=== PATIENT | female | born 1980 | race Caucasian/White ===

== ENCOUNTER 2019-05-29 18:38 | Inpatient (IN) | payer MEDICARE, BC ==
[~2019-05-29] VITALS: Ht 160 cm; Wt 52.2 kg
--- NOTE | 2019-05-29 19:00 | NUR ---
ED Nurse Note: Pt has abdominal pain and not been able to insert catheter to BCIR and bleeding x 2 days. Pt is AO x 4times, VSS, on room air no distress, on NPO for 2 days. MONE seen Pt at bedside.
--- NOTE | 2019-05-29 19:30 | NUR ---
ED Nurse Note: Urine and blood sample sent to lab.
[2019-05-29] MEDS ORDERED: HYDROmorphone 1mg/NS 50ml IVPB 50 ML IVPB ONE (19:45)
[2019-05-29 19:51] LABS: BASOPHILS % (AUTO) 1.7 % (0.0-2.0); EOSINOPHILS % (AUTO) 1.7 % (0.0-3.0); HEMATOCRIT 35.4 % (37.0-47.0); LYMPHOCYTES % (AUTO) 33.4 % (20.0-45.0); MEAN CORPUSCULAR VOLUME 71 FL (80-99); MONOCYTES % (AUTO) 7.2 % (1.0-10.0); PLATELET COUNT 394 K/UL (150-450); RED BLOOD COUNT 5.01 M/UL (4.20-5.40); RED CELL DISTRIBUTION WIDTH 13.1 % (11.6-14.8)
[2019-05-29 19:52] LABS: APPEARANCE,URINE CLEAR; BILIRUBIN, URINE NEGATIVE (NEGATIVE); COLOR,URINE PALE YELLOW; GLUCOSE, URINE (UA) NEGATIVE (NEGATIVE); KETONES,URINE NEGATIVE (NEGATIVE); LEUKOCYTE ESTERASE ,URINE 1+ (NEGATIVE); NITRITE,URINE NEGATIVE (NEGATIVE); PH,URINE 5 (4.5-8.0); PROTEIN,URINE NEGATIVE (NEGATIVE); UROBILINOGEN,URINE NORMAL MG/DL (0.0-1.0)
[2019-05-29 19:54] VITALS: BP 141/61
[2019-05-29 19:56] LABS: ANION GAP 11 mmol/L (5-15); BLOOD UREA NITROGEN 16 mg/dL (7-18); CALCIUM 10.2 MG/DL (8.5-10.1); CARBON DIOXIDE 26 MMOL/L (21-32); CHLORIDE 101 MMOL/L (98-107); CREATININE 0.9 MG/DL (0.55-1.30); POTASSIUM 3.2 MMOL/L (3.5-5.1); SODIUM 138 MMOL/L (136-145)
[2019-05-29 20:01] LABS: ALANINE AMINOTRANSFERASE 24 U/L (12-78); ALBUMIN 4.1 G/DL (3.4-5.0); ALBUMIN/GLOBULIN RATIO 0.9 (1.0-2.7); ALKALINE PHOSPHATASE 87 U/L (46-116); ASPARTATE AMINO TRANSFERASE 25 U/L (15-37); BILIRUBIN,TOTAL 0.3 MG/DL (0.2-1.0)
--- NOTE | 2019-05-29 20:02 | Emergency Room Report ---
History of Present Illness General Chief Complaint: Abdominal Pain Source: Patient Present Illness HPI HPI: This is a 38-year-old female with a history of colon cancer status post resection, ovarian and cervical cancer status post chemo/radiation as well as total hysterectomy, ulcerative colitis with Guzman continent ileostomy August 2017 performed in [place] with multiple revisions presents for evaluation of worsening abdominal pain and ileostomy problem. The patient flew to [place] today to meet with Dr. Miller who is a expert on Guzman containing ileostomy. She has been having weeks of worsening abdominal pain and difficulty passing the ileostomy catheter into her stoma in her right pelvis. Concern for obstruction as she is no longer able to evacuate the pouch. She denies any fevers but notes worsening abdominal pain and some distention. She denies vomiting vomiting, rash, shortness of breath, wheezing, headaches. She does note intermittent chest pain and easily fatigue though this has been going on for several months. She states that she has recently been diagnosed with hyperkalemia and while an inpatient during a prolonged hospitalization had some sort of cardiac arrhythmia for which she required defibrillation. She does not currently have a search engine optimization manager due to a change in his insurance. Currently, she is on the complaining of diffuse abdominal pain. PMH: Ovarian cancer, colon cancer, cervical cancer, hypertension, hyperkalemia, ulcerative colitis, anxiety PSH: Proctocolectomy, Guzman continent ileostomy, total hysterectomy Allergies: IV contrast dye causes flushing, lightheadedness, syncope. Morphine causes hives Social Hx: Denies smoking, alcohol use or illicit drug use Allergies: Coded Allergies: MORPHINE (Verified Allergy, Unknown, Shortness of Breath, 05/29/19) Uncoded Allergies: CONTRAST (Allergy, Unknown, 05/29/19) Patient History Last Menstrual Period: Hysterectomy 2016 Now: No Nursing Documentation-PM Past Medical History: No History, Except For Hx Cancer: Yes - Ovarian, Cervical Hx Gastrointestinal Problems: Yes - Ulcerative colitis Review of Systems All Other Systems: negative except mentioned in HPI Physical Exam Vital Signs Date Time Temp Pulse Resp B/P (MAP) Pulse Ox O2 Delivery O2 Flow Rate FiO2 05/29/19 18:44 98.4 108 20 140/102 (115) 97 Room Air General: Awake and alert, appears moderately uncomfortable HEENT: NC/AT. EOMI. dry mucous membranes Neck: Supple, trachea midline Chest Wall: No tenderness, no deformity, scarring over the left chest wall, no open wounds Cardiovascular: RRR. S1 and S2 normal. No murmur appreciated Resp: Normal work of breathing. No cough, wheezing or crackles appreciated Abdomen: Abdomen is soft, nondistended. Diffusely tender to palpation without palpable mass. There is a small stoma in the right groin without surrounding erythema, no bleeding, no drainage. Tender to palpation. Skin: Intact. No abrasions, laceration or rash over the exposed skin. Stoma as described above MSK: Normal tone and bulk. Moving all extremities. No obvious deformity. Neuro: Awake and alert. Mentating appropriately. Medical Decision Making ER Course 38-year-old female presenting from [place] at day with a history of ovarian, cervical and colon cancer status post surgical resection of all as well as chemotherapy and radiation, Guzman continent ileostomy procedure for ulcerative colitis with multiple revisions presenting for evaluation of complication of the ileostomy pouch by Dr. Lama. The patient is uncomfortable with a tender abdomen but vital signs are currently reassuring she does not appear outwardly septic or in distress. We will provide IV fluids , pain medication and start a broad work-up. She will require admission. Will discuss with Dr. Lama EKG Diagnostic Results EKG Time: 19:40 Rate: normal Rhythm: NSR ST Segments: no acute changes Other Impression Prolonged QT interval at 499 ms Rhythm Strip Diag. Results Rhythm Strip Time: 19:40 EP Interpretation: yes Rate: 91 Rhythm: NSR Reevaluation Time: 20:20 Last Vital Signs Date Time Temp Pulse Resp B/P (MAP) Pulse Ox O2 Delivery O2 Flow Rate FiO2 05/29/19 18:44 98.4 108 20 140/102 (115) 97 Room Air Status: improved Reevaluation Impression Lab work returned largely unremarkable. No significant white count. EKG and cardiac enzymes within normal limits. The patient required IV fluids and IV pain medication with some improvement of her symptoms. Discussed the patient with Dr. Espinosa, we both feel that she does not require emergent imaging at this time. She will be admitted for further management. Please note that this report is being documented using Fit with Friends technology. This can lead to erroneous entry secondary to incorrect interpretation by the dictating instrument. Disposition: ADMITTED INPATIENT Admit Decision Time: 20:25 Condition: Stable Referrals: NON PHYSICIAN (PCP) Caio Bell MD May 29, 2019 20:02
[2019-05-29 20:04] LABS: INR 0.9 (0.9-1.1)
[2019-05-29] MEDS ORDERED: HYDROmorphone 1mg/ml Carpuject IVP ONE (21:00)
--- NOTE | 2019-05-29 21:22 | NUR ---
NURSE NOTES: Receive a report from ED, DEREJE Montez.
[2019-05-29 21:30] VITALS: BP 138/75
--- NOTE | 2019-05-29 21:30 | NUR ---
ED Nurse Note: Report given to RN Flora. Pt is AO x 4times, VSS, on room air no distress. Belongings and skin condition report to RN.
--- NOTE | 2019-05-29 21:38 | NUR ---
NURSE NOTES: Pt newly admitted from ED via koki d/t pain and discharge from ileostomy on RLQ. Pt is awake and alert. IV 20 G on left AC without infiltration. On therapeutic NPO except ice chips and medication. Will continue to monitor and will contact Dr. Miller to confirm orders. Addendum: 05/30/19 at 0243 by Flora Gamble RN Provide facility orientations. Leave call light within reach. Bed is locked and lowest. Pt brought her suitcase but refuses to check it. Belonging paper signed by pt.
[2019-05-29] MEDS ORDERED: DILAUDID IV (21:50)
[2019-05-29] MEDS ORDERED: XANAX XR2 MG ORAL (21:50)
[2019-05-29] MEDS ORDERED: BENADRYL25 M3 IVP (21:50)
[2019-05-29] MEDS ORDERED: POTASSIUM99 M3 PO (21:50)
[2019-05-29] MEDS ORDERED: QUETIAPINE FUM100 MG ORAL (21:50)
[2019-05-29] MEDS ORDERED: Zolpidem 5mg tab ORAL PRN (23:15)
[2019-05-29] MEDS ORDERED: ALPRAZolam 0.25mg tab ORAL SCH (23:15)
[2019-05-29] MEDS ORDERED: DiphenhydrAMINE 50mg/ml Inj IVP PRN (23:15)
--- NOTE | 2019-05-29 23:30 | NUR ---
NURSE NOTES: Done insertion of 24 Fr. diallo catheter to ileostomy. No bleeding noted and nothing drained. After irrigation with 20ml N/S, drain with brownish drainage. Total N/S 20ml two time, 40 ml drained. Connect with diallo bag for natural drainage. 4x4 gauze, ABD, silk tape with two tegarderm by pt's request to hold the catheter. Will continue to monitor.
[2019-05-30] VITALS: BP 125/88
[2019-05-30] MEDS ORDERED: Rate Change PCA 1 Each MISC PRN
[2019-05-30] MEDS ORDERED: Naloxone 0.4mg/ml Inj IVP PRN
[2019-05-30] MEDS ORDERED: PCA Education Pamphlet MISC ONE
[2019-05-30] MEDS: D5 1/2NS w/KCl 20mEq 1,000 ML IV SCH ×3 (00:17→19:59)
--- NOTE | 2019-05-30 00:30 | NUR ---
NURSE NOTES: Receive admission orders from Dr. Miller including RHINOLOGIST for pain control as bolus: 0.1mg, 6min lock time, and 4mg MAX for 4 hrs but pt insists on 1.6mg every hour as bolus. Notify to Dr. Miller to verify RHINOLOGIST pain medication. Increase to 0.2mg bolus and prn Dilaudid 1mg SC Q 3hrs for breakthrough pain. Order noted and carried out. Explain to pt for current regime. Pt verbalize understanding. Pt describes her pain as sharp, poking and waving from the origin to spread out around the area. Will continue to monitor with RHINOLOGIST usage.
[2019-05-30] MEDS ORDERED: HYDROmorphone 1mg/ml Carpuject SUBQ PRN ×2 (01:00→09:00)
--- NOTE | 2019-05-30 03:30 | NUR ---
NURSE NOTES: Pt is asleep with Spo2 monitor and keep as 97% in RA. Brownish drainage drained via ileostomy with NS 20ml irrigation. IV fluid hydration via left AC 20 G without IV site infiltration. Leave call light within reach. Will continue to monitor.
[2019-05-30 04:00] VITALS: BP 91/68
[2019-05-30 05:29] LABS: BASOPHILS % (AUTO) 1.5 % (0.0-2.0); EOSINOPHILS % (AUTO) 1.9 % (0.0-3.0); HEMATOCRIT 32.4 % (37.0-47.0); HEMOGLOBIN 9.9 G/DL (12.0-16.0); MEAN CORPUSCULAR VOLUME 72 FL (80-99); MONOCYTES % (AUTO) 7.4 % (1.0-10.0); NEUTROPHILS % (AUTO) 59.2 % (45.0-75.0); PLATELET COUNT 311 K/UL (150-450); RED BLOOD COUNT 4.47 M/UL (4.20-5.40); RED CELL DISTRIBUTION WIDTH 13.9 % (11.6-14.8)
[2019-05-30 05:59] LABS: ALANINE AMINOTRANSFERASE 21 U/L (12-78); ALBUMIN 3.3 G/DL (3.4-5.0); ALBUMIN/GLOBULIN RATIO 0.9 (1.0-2.7); ALKALINE PHOSPHATASE 71 U/L (46-116); ANION GAP 7 mmol/L (5-15); ASPARTATE AMINO TRANSFERASE 19 U/L (15-37); BILIRUBIN,TOTAL 0.3 MG/DL (0.2-1.0); BLOOD UREA NITROGEN 12 mg/dL (7-18); CALCIUM 9.5 MG/DL (8.5-10.1); CARBON DIOXIDE 29 MMOL/L (21-32); CHLORIDE 104 MMOL/L (98-107); CREATININE 0.7 MG/DL (0.55-1.30); FERRITIN 2 NG/ML (8-388); POTASSIUM 3.6 MMOL/L (3.5-5.1); SODIUM 140 MMOL/L (136-145)
[2019-05-30 06:11] LABS: % IRON SATURATION 5 % (15-50); IRON 18 ug/dL (50-175); TOTAL IRON BINDING CAPACITY 331 ug/dL (250-450)
--- NOTE | 2019-05-30 06:35 | NUR ---
NURSE NOTES: Receive a call from Dr. Miller. Update pt's conditions overnight and 190ml brownish drainage via ileostomy. Confirm with MD about home medication of Estradiol 0.1mg 1 patch 2x/ 1wk. Order noted and carried out. Will continue to monitor.
[2019-05-30] MEDS: PCA shift volume MISC SCH ×2 (07:00→19:00)
[2019-05-30 07:38] LABS: PHOSPHORUS 3.8 MG/DL (2.5-4.9)
[2019-05-30] MEDS ORDERED: ESTRADIOL1 EAC5 TD (07:40)
--- NOTE | 2019-05-30 07:45 | NUR ---
NURSE NOTES: Done MRSA for nares but refuses for CRE/VRE. Explain for benefits and risks x 3 but refuses tests. Will continue to monitor.
--- NOTE | 2019-05-30 07:45 | NUR ---
HAND-OFF: Report given to DEREJE Barrera. Done rounds. Update to pt's about consult for pain management. will continue to monitor.
[2019-05-30 08:00] VITALS: BP 130/97
--- NOTE | 2019-05-30 08:11 | NUR ---
NURSE NOTES: Received report from DEREJE Hines. Rounding done with outgoing nurse. Pt a/o x 4, in bed. No respiratory distress noted. QUALITY CONTROL ENGINEER is on. Ileostomy bag is patent, greenish color noted. Bed in lowest position, call light within reach. Will continue to monitor.
--- NOTE | 2019-05-30 08:30 | NUR ---
NURSE NOTES: Report received from Bruce REYEZ, rounds made. Patient resting in semi-fowlers position in bed. Alert, oriented x4 calm. IVF (D5 1/2 NS at 100 ml/hr) and SAILOR Dilaudid infusing to LAC as ordered, site asymptomatic. Patient ambulates to bathroom, voids in hat in toilet. No distress on RA. Abdominal dressing CDI, draining brown output to drainage bag. Reinforced NPO status, with ice chips/meds only. Ice chips provided. Call light in reach, bed in lowest position, will continue to monitor.
--- NOTE | 2019-05-30 08:39 | NUR ---
HAND-OFF: Report given to DEREJE Camargo.
[2019-05-30] MEDS ORDERED: HYDROmorphone 4mg tab ORAL PRN (09:00)
[2019-05-30] MEDS ORDERED: PCA HYDROmorphone 1mg/ml 30 ML IV PRN ×2 (09:00)
--- NOTE | 2019-05-30 09:01 | NUR ---
RADIOLOGY DEPT., CHEST X-RAY DONE.-P.DYE
[2019-05-30] MEDS: ALPRAZolam 0.5mg tab ORAL SCH ×4 (09:13→23:48)
[2019-05-30] MEDS: DULoxetine 30mg cap ORAL SCH ×2 (09:13→18:16)
--- NOTE | 2019-05-30 09:40 | General Progress Note ---
Progress Note Progress Note Preliminary evaluation of patient - underwent proctocolectomy with Joy Continent Ileostomy in 2016 with finding of colon cancer. She had Ojy pouch revision in 05/2018, 11/2018, 02/2019 and 03/2019. She states she was hospitalized in [place] for 8 months and has been on a Dilaudid SECRETARY BOARD OF COMMISSIONERS at home for a long time. There is no explanation yet for this prolonged hospital stay or her home SECRETARY BOARD OF COMMISSIONERS. Her labs are okay with anemia; iron 18, albumin 3.3 RN able to insert 24Fr catheter into Joy Pouch with good drainage overnight. Imp. Abdominal pain for 2 years using home SECRETARY BOARD OF COMMISSIONERS in [place] after 8 month hospital stay ?? etiology Plan: STAT CT scan abd+pelvis with oral contrast (allergy to IV contrast) STAT dual lumen PIC line (had an infusion port removed due to infection) Will f/u later today for in-depth assessment Nolan Miller MD May 30, 2019 09:40
[2019-05-30] MEDS ORDERED: Gastrograffin 30ml ORAL PRN (09:45)
[2019-05-30] MEDS ORDERED: ESTRADIOL TOPIC SCH (10:00)
[2019-05-30] MEDS ORDERED: DiphenhydrAMINE 50mg/ml Inj IVP SCH (10:03)
[2019-05-30] MEDS: DiphenhydrAMINE 50mg/ml Inj IVP PRN (10:07)
--- NOTE | 2019-05-30 10:12 | NUR ---
CASE MANAGEMENT:REVIEW 38 YR OLD FEMALE PRESENTED TO OUR ER CC: ABDOMINAL PAIN. BCIR BLEEDING AND UNABLE TO INTUBATE SI: 98.5 108 20 140/102 97% ON RA H/H-11.0/35.4 K-3.2 IS:1L NS BOLUS IV DILAUDID X2 NPO : TO MED/SURG 3 EAST IS: IVF@100/HR NATIONAL ACCOUNT MANAGER DILAUDID
[2019-05-30] MEDS ORDERED: Heparin1,000 units/500ml Premix(Conc:2 units/ml) IV PRN (10:45)
[2019-05-30] MEDS ORDERED: Lidocaine 1% Plain 30 ml INJ PRN (10:45)
--- NOTE | 2019-05-30 11:00 | NUR ---
NURSE NOTES: Patient with allergy to contrast, aware. Order pre-medicate with Benadryl IV and administer oral contrast for STAT CT of Abdomen. Benadryl 25 mg IV was drawn up, but new order came up for Benadryl 50 mg IV. Pharmacy called. Asked if it was okay to draw up the other half of Benadryl IV from vial instead of wasting it, instructed to waste the complete vial (50 mg) and pull a new Benadryl 50 IV to administer. Above discussed and wasted with SARITA Gibbs RN. Administered Benadryl 50 mg IV one time dose, at 1025. PO contrast started at 1035, Martell in radiology notified. No reaction noted, will continue to monitor. Addendum: 05/30/19 at 1129 by Mary Jo Atkins RN MD mendez (Dr. Miller)
[2019-05-30 12:00] VITALS: BP 94/67
--- NOTE | 2019-05-30 12:21 | NUR ---
CT ABD/PELVIS ORAL ONLY COMPLETED.
--- NOTE | 2019-05-30 12:22 | Pre-Procedure Note/Attestation ---
Pre-Procedure Note/Attestation Complete Prior to Procedure Planned Procedure: not applicable Procedure Narrative: PICC Indications for Procedure Pre-Operative Diagnosis: needs steaming cabinet tender IV access Attestation I attest that I discussed the nature of the procedure; its benefits; risks and complications; and alternatives (and the risks and benefits of such alternatives ), prior to the procedure, with the patient (or the patient's legal motor vehicle field representative). I attest that, if there was a reasonable possibility of needing a blood transfusion, the patient (or the patient's legal motor vehicle field representative) was given the [facility] standardized written summary, pursuant to the [place] Marky Blood Safety Act ([place] Health and Safety Code # 1645, as amended). I attest that I re-evaluated the patient just prior to the surgery and that there has been no change in the patient's H&P, except as documented below: Shukri Mclean MD May 30, 2019 12:22
--- NOTE | 2019-05-30 12:23 | Brief Operative Note ---
Immediate Post Operative Note Operative Note Pre-op Diagnosis: needs predatory animal exterminator IV access Procedure: PICC Post-op Diagnosis: same as pre-op Findings: consistent w/pre-op dx studies Surgeon: Dylan MCLEAN Specimen: none Complications: none Condition: stable Fluids: none Implant(s) used?: No Shukri Mclean MD May 30, 2019 12:23
--- NOTE | 2019-05-30 12:30 | NUR ---
NURSE NOTES: Reviewed consent for Contrast and PICC line with patient, verbalized understanding. Consents signed. Patient sent down for PICC line and CT of Abdomen via bed at 1120. Patient returned at 1218 to 303-2, in stable condition, drowsy, awakes to name. DAYAMI double lumen PICC in place, patent with flush, connected back to IVF and SOAP DRIER OPERATOR as ordered. Peripheral LAC heplock discontinued, no active bleeding. Encouraged patient to perform IS, demonstrated correctly. Will continue to monitor.
--- NOTE | 2019-05-30 12:55 | Diagnostic Imaging Report ---
Indication: Cough Technique: One view of the chest Comparison: none Findings: Lungs and pleural spaces are clear. Heart size is normal. Impression: No acute process
--- NOTE | 2019-05-30 13:00 | Consultation ---
DATE OF CONSULTATION: 05/30/2019 CONSULTING PHYSICIAN: Ranjit Tillman M.D. REFERRING PHYSICIAN: Nolan Miller M.D. REASON FOR CONSULTATION: Acute pain consult. HISTORY OF PRESENT ILLNESS: Dear Dr. Nolan Miller, Thank you kindly for consulting me to evaluate and render an opinion as to how to help in the management of the patient's acute on chronic gastrointestinal pain. The patient is a 38-year-old woman, who admitted through the emergency room after flying over from [place]. This patient has a long history of gastrointestinal pain and disorder. She has had previous gastrointestinal surgery. She has a history of colon cancer, status post chemotherapy and radiation along with a history of ulcerative colitis with Joy continent ileostomy performed in August 2017. She has had multiple surgical revisions and ileostomy problems with worsened abdominal pain. This patient lives with her mother, who lives in assisted living facility in [place]. The patient has been on home IV Dilaudid RECRUITING TEAM LEAD unit and follows an outpatient pain doctor, Dr. Garcia, in [place] near [place], [facility]. This patient states that she has been trialed on multiple opioids for the past several years. She states that she has failed trials of fentanyl patch. She has failed trials of MS Contin and OxyContin. She denies tobacco or marijuana usage. She does admit to severe anxiety for which she was taking Cymbalta 60 mg b.i.d. along with Xanax 2 mg three times a day with her nightly Seroquel. Again, this patient has been on home IV RECRUITING TEAM LEAD Dilaudid. I asked the patient how this was arranged. The patient states that because she was living with her mother in an assisted living facility, they did have nursing staff and [facility] was involved with daily medication with her pain doctor, Dr. Garcia, to coordinate the home IV Dilaudid RECRUITING TEAM LEAD. The patient does understand that this is quite unusual to be on home RECRUITING TEAM LEAD, so I corroborated the story with her repeatedly. The patient states that she has not been trialed on methadone, but has preferred to avoid this agent. She understands that she is opioid addicted. The patient presented to [facility] for Dr. Miller, to evaluate her ileostomy problem. Dr. Miller, you consulted me to see if I could offer any recommendations or insight regarding this patient's opioid dependence. I saw the patient at the bedside. I performed a detailed history and physical examination. I reviewed the medical record in detail. I spent over 75 minutes in consultation with an additional 30 minutes in medical record review. PAST MEDICAL HISTORY: 1. Opioid dependence. 2. Benzodiazepine dependence. 3. Anxiety. 4. Chronic abdominal pain, status post multiple revisions of ileostomy procedure. 5. Multiple malignancies including colon cancer, ovarian cancer, cervical cancer. 6. Ulcerative colitis. PAST SURGICAL HISTORY: Total hysterectomy, proctocolectomy, Joy continent ileostomy in [place]. ALLERGIES: 1. Morphine causes hives and shortness of breath. 2. IV contrast dye. SOCIAL HISTORY: The patient lives with her mother, who lives in an assisted living facility in [place] outside [place], [place]. The patient denies tobacco usage or marijuana usage. REVIEW OF SYSTEMS: Per Dr. Miller. FAMILY HISTORY: Unknown. PHYSICAL EXAMINATION: VITAL SIGNS: Age 38, height 155 cm, weight 47 kg, body mass index 20. Pain level 8/10 on the visual analog pain scale. Afebrile, pulse 81, respirations 18, blood pressure 130/97, oxygen saturation 99% on room air. GENERAL: The patient is lying in the left lateral decubitus position/ position and apparent acute on chronic abdominal pain. Currently, she has a Dilaudid RECRUITING TEAM LEAD and IV placed. She is alert and oriented x3. I will defer cardiopulmonary and abdominal exam to Dr. Miller. LABORATORY STUDY: 05/30/2019 shows white count 6, hematocrit 32, and platelets 311. INR 1.0, PTT 25. Sodium 140, potassium 3.6, chloride 104, bicarb 29, BUN 12, creatinine 0.7, glucose 116, phosphorus 2.8, magnesium 1.8. AST 19, ALT 21, alkaline phosphatase 71. Total protein 7.0. Albumin 2.3. Urinalysis shows 1+ leukocyte esterase, urine bacteria few, nitrite negative. IMPRESSION: 1. Opioid dependence. 2. Benzodiazepine dependence. 3. Anxiety. 4. Chronic abdominal pain, status post multiple revisions of ileostomy procedure. 5. Multiple malignancies including colon cancer, ovarian cancer, cervical cancer. 6. Ulcerative colitis. TREATMENT RECOMMENDATIONS: The patient presented from [place] for emergency room admission at [facility] for evaluation by Dr. Miller. The patient has a history of cancer, had chemotherapy and radiation. She has atypical situation where she is on home IV Dilaudid RECRUITING TEAM LEAD unit. To be precise, she is not at home, but in an assisted living facility with the parents and nursing supervision. Regardless, this is an unusual situation from my experience. She does have an outpatient pain doctor, Dr. Garcia, who has been caring for this patient for over two years. The patient has failed multiple trials of a few long-acting agent such as MS Contin, OxyContin, and fentanyl patch. However, it is clear that this patient is opioid dependent as she is on continuous IV Dilaudid infusion. The patient states that she uses upwards of 1.6 mg to 1.8 mg on an hourly basis the IV Dilaudid RECRUITING TEAM LEAD in her home, [place]. The patient has not been trialed on methadone and I strongly recommended a longer-acting agent to be considered. Methadone comes not only in intravenous route, but also in the oral route. For the time being, Dr. Miller is examining options for this patient and while the patient is on the status quo without any acute surgical intervention, the patient has been restarted on her Dilaudid RECRUITING TEAM LEAD. If she does go forward with surgery at [facility], Dr. Miller may suggest the patient to trial the methadone. The patient will follow up in [place] with an outpatient pain doctor, Dr. Garcia. The patient is benzodiazepine dependent for chronic anxiety. She uses a significant dose of Xanax 2 mg three times a day. This will be restarted. The patient states that she was using Cymbalta 60 mg b.i.d. until her insurance was changing and this medication got dropped. I will restart her Cymbalta here in the hospital, a 60 mg dose b.i.d. The patient has been using Seroquel 100 mg nightly, which has been restarted. The patient also states that she has been tolerating 8 mg of oral Dilaudid several times per day and she is not attached to her IV RECRUITING TEAM LEAD unit. I have made available oral Dilaudid 8 mg every 4 hours p.r.n. for moderate pain. I have added a subcutaneous dose of 1.5 mg subcutaneous Dilaudid every three hours p.r.n. for severe pain. I have reset her Dilaudid RECRUITING TEAM LEAD unit at 0.3 mg demand dose at 10-minute lockout and then 2 mg 1-hour limit. Ranjit Tillman M.D. DR: RASHAWN JOB#: [id number] CC:
--- NOTE | 2019-05-30 13:05 | Diagnostic Imaging Report ---
Indications: Needs long-term IV access Technique: Ultrasound confirms patent compressible left basilic vein. Total sterile technique, including sterile probe cover and sterile gel, hat, mask, sterile gown, large sterile drape, and preparation with 2% chlorhexidine utilized. Local anesthesia with 1% lidocaine. Under real-time ultrasound guidance, puncture basilic vein using 21-gauge needle, documented and archived, passage 0.018 guidewire under direct fluoroscopy, which was used to determine appropriate catheter length, exchange for 4 Yemeni peel-away sheath. 4 Yemeni Bard dual-lumen power PICC cut to 40 cm. It was inserted through the peel-away sheath. Peel-away sheath and guidewire removed. Catheter fixed to the skin. Both catheter ports aspirated and flushed. Patient tolerated procedure well, without immediate complication. Digital radiograph documents satisfactory catheter tip position, at the cavoatrial junction. Total fluoroscopy time 16.4 seconds. Total dose area product [id number] [id number] Total number of images: 1 Impression: Successful placement of left arm PICC under sonographic and fluoroscopic guidance, as described above.
--- NOTE | 2019-05-30 13:17 | Diagnostic Imaging Report ---
Indication: Abdominal pain, status post total colectomy and continent ileostomy Technique: Spiral acquisitions obtained through the abdomen and pelvis. No oral contrast utilized, per emergency room physician request No IV contrast utilized, per referring physician request.. Multiplanar reconstructions were generated. Total dose length product 555.43 mGycm. CTDIvol(s) 10.11 mGy. Dose reduction achieved using automated exposure control Comparison: None Findings: Patient is status post total colectomy. There is a continent ileostomy pouch. This appears to be draped over the bladder, with the proximal end of the pouch immediately anterior to the coccyx. The bladder itself is markedly distended. This pushes the pouch under the sacrum. Ingested contrast has traversed only a portion of the small bowel. 6 there is no small bowel distention. No free or loculated intraperitoneal gas or fluid collections are demonstrated. The distal esophagus, stomach, duodenum are unremarkable. Lack of IV contrast limits assessment of solid organs. The gallbladder is surgically absent. The liver is grossly unremarkable. There is mild ectasia of the extrahepatic bile ducts, common bile duct measuring up to 11 mm in diameter, no definite downstream obstructing lesion. The pancreatic duct is mildly ectatic. No focal pancreatic abnormality. The spleen, adrenals, left kidney are unremarkable. The right kidney demonstrates mild hydronephrosis. There is also mild hydroureter. No focal renal parenchymal abnormality demonstrated. No pelvic mass or adenopathy. Uterus and ovaries not visualized, presumed surgically absent The included lung bases demonstrate posterior dependent atelectatic changes. There is minimal pericardial fluid versus thickening. The bones are unremarkable. Impression: Markedly distended urinary bladder Postsurgical changes, as described, status post total colectomy and continent ileostomy placement Somewhat unusual configuration of continent ileostomy pouch, which appears to be pointed posteriorly, draped over the bladder and possibly slightly compressed between the bladder and the sacrum. No small distention to suggest small bowel obstruction. Note, however, that ingested contrast has only traversed the proximal small bowel. Mild right hydronephrosis and hydroureter, possibly related to the bladder distention Prior cholecystectomy. Mildly dilated extra hepatic bile ducts, probably related to postcholecystectomy state given absence of evidence of downstream obstructive lesion. However, occult downstream obstruction on plain excludable, and correlation with liver function tests is recommended Nonvisualized uterus and ovaries, correlate with surgical history Minimal pericardial thickening versus fluid Basilar pulmonary parenchymal dependent atelectatic changes The CT scanner at [facility] is accredited by the [employer] and the scans are performed using protocols designed to limit radiation exposure to as low as reasonably achievable to attain images of sufficient resolution adequate for diagnostic evaluation.
[2019-05-30 16:00] VITALS: BP 94/64
--- NOTE | 2019-05-30 16:09 | GI Initial Consult Note ---
History of Present Illness General Date patient seen: May 30, 2019 Time patient seen: 15:59 Reason for Hospitalization: Abdominal Pain Referring physician: JEREMIAH Reason for Consultation: ABDOMINAL PAIN Present Illness HPI This is a 38-year-old female with a history of colon cancer status post resection, ovarian and cervical cancer status post chemo/radiation as well as total hysterectomy, ulcerative colitis with Guzman continent ileostomy August 2017 performed in [place] with multiple revisions presents for evaluation of worsening abdominal pain and ileostomy problem. The patient flew to [place] today to meet with Dr. Miller who is a expert on Guzman containing ileostomy. She has been having weeks of worsening abdominal pain and difficulty passing the ileostomy catheter into her stoma in her right pelvis. Concern for obstruction as she is no longer able to evacuate the pouch. She denies any fevers but notes worsening abdominal pain and some distention. She denies vomiting vomiting, rash, shortness of breath, wheezing, headaches. She does note intermittent chest pain and easily fatigue though this has been going on for several months. She states that she has recently been diagnosed with hyperkalemia and while an inpatient during a prolonged hospitalization had some sort of cardiac arrhythmia for which she required defibrillation. She does not currently have a color print inspector due to a change in his insurance. Currently, she is on the complaining of diffuse abdominal pain. GI consulted for persistent abdominal pain. Initial HPI as noted above. Patient has complaint of persistent abdominal pain, history of a Joy pouch performed on 02/05/2017. The patient noted that she had 3 pouch revisions at this year. She spent approximately 8 months in a [place] hospital and discharged with Dilaudid PANEL SAW OPERATOR to home. Patient had an abdominal pelvic CT performed today, pending final read. The patient noted her last endoscopy was approximately in August 2018. The patient was seen, awake alert and oriented x4 no apparent distress. No active signs or symptoms of nausea vomiting. The patient has complaint of abdominal pain. Home Meds Reported Medications Estradiol (ESTRADIOL) 1 Each Patch.tdwk, 1 EACH TD, PATCH 05/30/19 Potassium Gluconate (POTASSIUM) 99 Mg Tablet, 99 MG PO, TAB 05/29/19 Diphenhydramine HCl (Benadryl) 25 Mg Capsule, 50 MG IVP EVERY 4 HOURS, VIAL 05/29/19 Hydromorphone HCl/Pf (Dilaudid 1 mg/ml Syringe) 1 Mg/1 Ml Syringe, 1.6-1.8 MG IV EVERY HOUR 05/29/19 Alprazolam (XANAX XR) 2 Mg Tab.er.24h, 2 MG ORAL BID, TAB 05/29/19 Quetiapine Fumarate* (SEROQUEL*) 100 Mg Tablet, 100 MG ORAL DAILY, TAB 05/29/19 Med list reviewed/reconciled: Yes Allergies: Coded Allergies: MORPHINE (Verified Allergy, Unknown, Shortness of Breath, 05/29/19) Uncoded Allergies: CONTRAST (Allergy, Unknown, 05/29/19) Patient History History Provided By: Patient, Medical Record PMH Narrative PMH: Ovarian cancer, colon cancer, cervical cancer, hypertension, hyperkalemia, ulcerative colitis, anxiety PSH: Proctocolectomy, Guzman continent ileostomy, total hysterectomy Allergies: IV contrast dye causes flushing, lightheadedness, syncope. Morphine causes hives Social Hx: Denies smoking, alcohol use or illicit drug use Allergies: Coded Allergies: MORPHINE (Verified Allergy, Unknown, Shortness of Breath, 05/29/19) Uncoded Allergies: CONTRAST (Allergy, Unknown, 05/29/19) Patient History Last Menstrual Period: Hysterectomy 2016 Now: No Nursing Documentation-PMH Past Medical History: No History, Except For Hx Cancer: Yes - Ovarian, Cervical Hx Gastrointestinal Problems: Yes - Ulcerative colitis Review of Systems All Other Systems: negative except mentioned in HPI Physical Exam Vital Signs Date Time Temp Pulse Resp B/P (MAP) Pulse Ox O2 Delivery O2 Flow Rate FiO2 05/29/19 18:44 98.4 108 20 140/102 (115) 97 Room Air Sp02 EP Interpretation: reviewed, normal Labs Laboratory Tests Test 05/29/19 19:20 05/30/19 04:35 White Blood Count 8.0 K/UL (4.8-10.8) 6.0 K/UL (4.8-10.8) Red Blood Count 5.01 M/UL (4.20-5.40) 4.47 M/UL (4.20-5.40) Hemoglobin 11.0 G/DL (12.0-16.0) L 9.9 G/DL (12.0-16.0) L Hematocrit 35.4 % (37.0-47.0) L 32.4 % (37.0-47.0) L Mean Corpuscular Volume 71 FL (80-99) L 72 FL (80-99) L Mean Corpuscular Hemoglobin 22.0 PG (27.0-31.0) L 22.2 PG (27.0-31.0) L Mean Corpuscular Hemoglobin Concent 31.2 G/DL (32.0-36.0) L 30.7 G/DL (32.0-36.0) L Red Cell Distribution Width 13.1 % (11.6-14.8) 13.9 % (11.6-14.8) Platelet Count 394 K/UL (150-450) 311 K/UL (150-450) Mean Platelet Volume 4.0 FL (6.5-10.1) L 4.4 FL (6.5-10.1) L Neutrophils (%) (Auto) 56.0 % (45.0-75.0) 59.2 % (45.0-75.0) Lymphocytes (%) (Auto) 33.4 % (20.0-45.0) 30.0 % (20.0-45.0) Monocytes (%) (Auto) 7.2 % (1.0-10.0) 7.4 % (1.0-10.0) Eosinophils (%) (Auto) 1.7 % (0.0-3.0) 1.9 % (0.0-3.0) Basophils (%) (Auto) 1.7 % (0.0-2.0) 1.5 % (0.0-2.0) Prothrombin Time 10.1 SEC (9.30-11.50) 10.4 SEC (9.30-11.50) Prothromb Time International Ratio 0.9 (0.9-1.1) 1.0 (0.9-1.1) Activated Partial Thromboplast Time 25 SEC (23-33) 25 SEC (23-33) Urine Color Pale yellow Urine Appearance Clear Urine pH 5 (4.5-8.0) Urine Specific [employer] 1.020 (1.005-1.035) Urine Protein Negative (NEGATIVE) Urine Glucose (UA) Negative (NEGATIVE) Urine Ketones Negative (NEGATIVE) Urine Blood Negative (NEGATIVE) Urine Nitrite Negative (NEGATIVE) Urine Bilirubin Negative (NEGATIVE) Urine Urobilinogen Normal MG/DL (0.0-1.0) Urine Leukocyte Esterase 1+ (NEGATIVE) H Urine RBC 0-2 /HPF (0 - 2) Urine WBC 2-4 /HPF (0 - 2) Urine Squamous Epithelial Cells Few /LPF (NONE/OCC) Urine Calcium Oxalate Crystals Few /LPF (NONE) Urine Bacteria Few /HPF (NONE) Sodium Level 138 MMOL/L (136-145) 140 MMOL/L (136-145) Potassium Level 3.2 MMOL/L (3.5-5.1) L 3.6 MMOL/L (3.5-5.1) Chloride Level 101 MMOL/L (98-107) 104 MMOL/L (98-107) Carbon Dioxide Level 26 MMOL/L (21-32) 29 MMOL/L (21-32) Anion Gap 11 mmol/L (5-15) 7 mmol/L (5-15) Blood Urea Nitrogen 16 mg/dL (7-18) 12 mg/dL (7-18) Creatinine 0.9 MG/DL (0.55-1.30) 0.7 MG/DL (0.55-1.30) Estimat Glomerular Filtration Rate > 60 mL/min (>60) > 60 mL/min (>60) Glucose Level 92 MG/DL (74-106) 116 MG/DL (74-106) H Lactic Acid Level 1.10 mmol/L (0.4-2.0) Calcium Level 10.2 MG/DL (8.5-10.1) H 9.5 MG/DL (8.5-10.1) Total Bilirubin 0.3 MG/DL (0.2-1.0) 0.3 MG/DL (0.2-1.0) Aspartate Amino Transf (AST/SGOT) 25 U/L (15-37) 19 U/L (15-37) Alanine Aminotransferase (ALT/SGPT) 24 U/L (12-78) 21 U/L (12-78) Alkaline Phosphatase 87 U/L (46-116) 71 U/L (46-116) Troponin I 0.000 ng/mL (0.000-0.056) Total Protein 8.5 G/DL (6.4-8.2) H 7.0 G/DL (6.4-8.2) Albumin 4.1 G/DL (3.4-5.0) 3.3 G/DL (3.4-5.0) L Globulin 4.4 g/dL 3.7 g/dL Albumin/Globulin Ratio 0.9 (1.0-2.7) L 0.9 (1.0-2.7) L Phosphorus Level 3.8 MG/DL (2.5-4.9) Magnesium Level 1.8 MG/DL (1.8-2.4) Iron Level 18 ug/dL (50-175) L Total Iron Binding Capacity 331 ug/dL (250-450) Percent Iron Saturation 5 % (15-50) L Unsaturated Iron Binding 313 ug/dL (112-346) Ferritin 2 NG/ML (8-388) L Vitamin B12 Level 348 PG/ML (193-986) Folate 25.8 NG/ML (8.6-58.9) General Appearance: well appearing, no apparent distress, alert Head: normocephalic EENT: PERRL/EOMI, normal ENT inspection Neck: supple Respiratory: normal breath sounds, no respiratory distress Cardiovascular: normal rate Gastrointestinal: normal inspection, non tender, soft, normal bowel sounds, non -distended, other - Ileostomy Rectal: deferred Genitourinary: no CVA tenderness Musculoskeletal: normal inspection, back normal Neurologic: normal inspection, alert, oriented x3, responsive Psychiatric: normal inspection, judgement/insight normal, memory normal Skin: normal inspection, normal color, no rash, warm/dry, palpation normal, well hydrated Lymphatic: normal inspection, no adenopathy Current Medications Current Medications Medications (Trade) Dose Ordered Sig/Sohan Route PRN Reason Start Time Stop Time Status Last Admin Dose Admin Alprazolam (Xanax) 2 mg TID ORAL 05/30/19 09:00 06/05/19 23:14 05/30/19 09:13 Chlorhexidine Gluconate (Geraldine-Hex 2%) 1 applic DAILY@1999 TOPIC 05/30/19 20:00 06/29/19 19:59 Dextrose/ Electrolytes 1,000 ml @ 100 mls/hr Q10H IV 05/29/19 23:15 06/28/19 23:14 05/30/19 10:08 Diatrizoate Meglum/ Diatrizoate Sod (Gastrografin) 30 ml NOW PRN ORAL Radiology Procedure 05/30/19 09:45 06/01/19 09:31 Diphenhydramine HCl (Benadryl) 25 mg Q6H PRN IVP Itching 05/30/19 09:00 06/29/19 08:59 Duloxetine HCl (Cymbalta) 60 mg BID ORAL 05/30/19 09:00 06/29/19 08:59 05/30/19 09:13 Heparin Sodium/ Sodium Chloride (Heparin 1000 units/500ml Premix) 1,000 unit ONCE PRN IV picc line placement 05/30/19 10:45 06/01/19 10:44 Hydromorphone HCl 30 ml @ 0 mls/hr Q24H PRN IV For Pain 05/30/19 09:00 06/01/19 08:59 Hydromorphone HCl (Dilaudid) 1.5 mg Q3H PRN SUBQ Severe Pain (Pain Scale 7-10) 05/30/19 09:00 06/06/19 08:59 Hydromorphone HCl (Dilaudid) 8 mg Q4H PRN ORAL Moderate Pain (Pain Scale 4-6) 05/30/19 09:00 06/06/19 08:59 Lidocaine HCl (Xylocaine 1% 30ml) 30 ml ONCE PRN INJ picc line placement 05/30/19 10:45 06/01/19 10:44 Miscellaneous Medication (PANEL SAW OPERATOR Rate Change) 1 ea DAILY PRN MISC rate change 05/30/19 00:00 05/31/19 23:59 Miscellaneous Medication (PANEL SAW OPERATOR shift volume) 1 ea Q12HR@0700,1900 MISC 05/30/19 07:00 06/01/19 06:59 05/30/19 07:00 Naloxone HCl (Narcan) 0.1 mg Q1M PRN IVP RR<10/min OR SBP<90 mmHg 05/30/19 00:00 05/31/19 23:59 Ondansetron HCl (Zofran) 4 mg Q6H PRN IVP Nausea & Vomiting 05/29/19 23:15 06/28/19 23:14 05/30/19 00:06 Patient Own Medication (Patient's Own Med) 1 ea 2XWK@SUN/THURS TOPIC 05/30/19 10:00 06/29/19 09:59 Quetiapine Fumarate (SEROquel) 100 mg QHS ORAL 05/29/19 23:15 06/28/19 23:14 05/30/19 00:48 Simethicone (Mylicon) 80 mg Q4HR PRN ORAL gas 05/29/19 23:15 06/28/19 23:14 Zolpidem Tartrate (Ambien) 5 mg HSPRN PRN ORAL Insomnia 05/29/19 23:15 06/05/19 23:14 GI: Plan Problems: (1) Ileostomy present (2) History of ulcerative colitis (3) Abdominal pain (4) Anemia (5) Iron deficiency Plan Plan for EGD and pouch endoscopy tomorrow morning. N.p.o. at midnight Hold all blood thinners IV hydration PPI PRN transfusions Follow-up labs, ferritin levels We will follow with additional recommendations postprocedure Discussed with Dr. Davis. Thank you for this patient referral, we will follow. The patient was seen and examined at bedside and all new and available data was reviewed in the patients chart. I agree with the above findings, impression and plan. (Patient seen earlier today. Signature stamp does not reflect patient encounter time.). - MD Mali Alex,[facility] State HospitalGuy FELDMAN May 30, 2019 16:09
--- NOTE | 2019-05-30 17:06 | General Progress Note ---
Progress Note Progress Note H&P dictated. 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 Abdominal pain ? etiology Plan: GI and Psychiatry evaluation Needs EGD and pouch endoscopy Likely needs TPN - will defer to Dr. Davis PICC line in place Morgan catheter for post-void residual of 408cc Nolan Miller MD May 30, 2019 17:06
--- NOTE | 2019-05-30 17:59 | NUR ---
NURSE NOTES: patient voided 650ml and post void residue 408ml, while MD at bedside order received to insert FC.
--- NOTE | 2019-05-30 18:40 | NUR ---
NURSE NOTES: Patient voided x2 in bathroom with hat. Post void residual 408 ml. No abdominal distention or pain. Order to insert FC with drainage bag, done at 1840, emptied 350 ml from FC. Addendum: 05/31/19 at 1321 by Mary Jo Atkins RN FC anchor applied and secured to left thigh.
--- NOTE | 2019-05-30 19:25 | NUR ---
HAND-OFF: Report given to Baribe REYEZ. Outputs: Ileostomy: 770 ml Urine (Void/FC): 1350 ml
--- NOTE | 2019-05-30 19:26 | NUR ---
NURSE NOTES: Received report from DEREJE Camargo. Rounds done with AM RN. Patient alert, oriented x4. Bed in low position, locked, side rails up x2. Call light within reach. Ileo dressing dry and intact. Morgan catheter draining clear yellow urine. PICC line in DAYAMI, intact and both lumen patent. PHARMACY INFORMATICS SPECIALIST Dilaudid for pain control, PHARMACY INFORMATICS SPECIALIST button within reach.
[2019-05-30 20:00] VITALS: BP 116/81
[2019-05-30] MEDS ORDERED: Fat Emulsion Iv 20% 250 ML IV SCH (21:00)
--- NOTE | 2019-05-30 21:00 | Pre-op HX & Phy Repo 2 SIG ---
DATE OF ADMISSION: 05/29/2019 HISTORY OF PRESENT ILLNESS: The patient is a 38-year-old female with a complicated medical and surgical history, who presents to the emergency room from the [facility] after two very prolonged late hospitalizations in [place], one 8 months starting in August of 2017 and 4 months earlier this year in 2019. She was finally discharged with a home Dilaudid CORONER. The patient has complaints of severe and sometimes excruciating abdominal pain, it is painful to eat, painful to catheterize her internal continent ileostomy to evacuate, painful to stand, and she has painful urination with diminished urination. The patient developed ulcerative colitis at age 14. In August 2017 in [place], she underwent proctocolectomy together with Joy continent intestinal reservoir and right salpingo-oophorectomy for ulcerative colitis with findings of colon cancer. She had a prior history of abdominal hysterectomy in 2016 for cervical cancer. The patient had a prolonged 8 month hospital stay due to what she says are a series of complications, 1 after the other, but we do not have an adequate explanation for this and we do not have records for this. The patient was discharged for some time and then readmitted. There is some question if she had chemo or radiation following her conjunction with her total hysterectomy. The patient states for the past 36 hours, she has been unable to insert her Joy continent ileostomy drainage catheter and accordingly, has been getting distended with more pain and cramping and has no stool or gas. We will evacuate until the pouch is catheterized to evacuate stool. The patient underwent revision of the pouch revising the collar segment and access/stoma segment on June 02, 2018 and again on December 14, 2018 and again on March 01, 2019. She underwent a stoma revision on April 12, 2019, but states her stoma is getting progressively smaller and she has more difficulty inserting her 30-Moldovan silicon catheter. She often has bleeding with blood running down her legs. She had a venous infusion port placed in May 2018, but this was removed in the recent months for infection. The patient does not have signs or symptoms of sepsis, but states that she had some cardiac arrhythmia and allegedly required defibrillation during her prolonged hospital stay. Again, details are not available. The patient could not find doctors to take care of her in [place] because her surgeon from all of these operations is suddenly not available to operate on patients. OPERATIONS: As mentioned above and will be listed at the end of this dictation. MEDICATIONS: Dilaudid CORONER, Benadryl, Linzess, Xanax, Seroquel, estradiol, and in the past, she took Adderall for ADHD. ALLERGIES: Morphine causes swelling of the pharynx with shortness of breath, but she has no problem with Dilaudid. She is also allergic to IV contrast. She is also allergic to mustard. REVIEW OF SYSTEMS: She has been told she has gastroparesis. PHYSICAL EXAMINATION: GENERAL: The patient is 5 feet 1 inches, 103 pounds, at her lowest, she was 87 pounds, but she is still depleted. She has only been able to eat intermittently in small amounts, but has not been on TPN recently. VITAL SIGNS: Within normal limits. HEENT: Within normal limits, although she is somewhat dry. LUNGS: Clear. HEART: Regular rhythm. BREASTS: Without masses. ABDOMEN: Soft and nondistended. She has a piercing at the umbilicus. She has multiple scars with a transverse suprapubic scar from flank to flank and a midline incision from just above the umbilicus to the pubis. She has only mild tenderness to palpation. The bladder appears distended. The continent ileostomy stoma is low in the right lower quadrant. We were able to insert a 24-Moldovan Morgan catheter into her pouch through her small stoma, which was taped in place and connected to gravity drainage bag and is draining adequately now to relieve her functional bowel obstruction. PELVIC: Deferred, but status post hysterectomy. RECTAL: Status post proctectomy. EXTREMITIES: Without edema. Pulses 2+ femoral to pedal bilaterally. NEUROLOGIC: Physiologic ADDITIONAL INFORMATION: CT scan of abdomen and pelvis with oral contrast revealed only slow progression of contrast part way through the small bowel, but no evidence of obstruction. The position of the pouch appeared very abnormal and presenting in an anterior-posterior plane, cannot rule out malrotation partial of the pouch. The catheter appeared to be down near the coccyx. The bladder was very distended with a mild right hydronephrosis and hydroureter, but none on the left, but concern was raised that the marked bladder distention was causing this problem. LABORATORY STUDIES: Revealed no leukocytosis, but hemoglobin 9.9. Serum iron 18. Vitamin B12 248. Albumin is low at 3.3 representing moderate protein malnutrition. Bladder scan postvoid revealed a 408 mL residual and a Morgan catheter has been placed. IMPRESSION: 1. Abdominal pain with complex surgical and medical history. 2. History of ulcerative colitis. 3. Status post multiple abdominal operations. 3.1. Total abdominal hysterectomy and left salpingo-oophorectomy in 2016. 3.2. Proctocolectomy and Joy continent intestinal reservoir and right salpingo-oophorectomy on September 06, 2017. 3.3. Revision of Joy continent ileostomy collar and access/stoma on June 02, 2018. 3.4. Revision of Joy pouch collar and access on December 14, 2018. 3.5. Revision of Joy collar and access on March 01, 2019. 3.6. Stoma revision of Joy continent ileostomy on April 12, 2019. (All of these operations were done in [place]). PLAN: A dual lumen PICC line has been placed for venous access and for total parenteral nutrition. The patient will be seen in consultation with Dr. Franklin Davis from Gastroenterology, Dr. Ranjit Tillman of Pain Management, and Dr. Brianna Sepulveda of Psychiatry. She will need to undergo upper GI endoscopy and pouch endoscopy. She will need to undergo a retrograde Gastrografin continent ileostomy pouchogram to better define the anatomy and function of the pouch at this time. She is not in any severe distress and her pouch is decompressed with most of the oral contrast having already drained through into the drainage bag through her indwelling catheter. It will be determine whether another operation is required after all this extensive emergency urgent evaluation is done. Nolan Miller M.D. DR: ROD JOB#: [id number] CC:
[2019-05-30] MEDS: Dyna-Hex 2% Top Sol 2oz TOPIC SCH (21:11)
--- NOTE | 2019-05-30 21:46 | NUR ---
NURSE NOTES: Spoke with Lucio from pharmacy regarding TPN. States cut off time is 2 pm and TPNs ordered later are sent the next day per pharmacy protocol. Left message notifying Dr Miller of above.
[2019-05-31] VITALS (13 sets, daily range): BP systolic 95–131; BP diastolic 57–84
[2019-05-31 05:00] LABS: EOSINOPHILS % (AUTO) 4.7 % (0.0-3.0); HEMATOCRIT 29.3 % (37.0-47.0); LYMPHOCYTES % (AUTO) 26.2 % (20.0-45.0); MEAN CORPUSCULAR VOLUME 72 FL (80-99); MONOCYTES % (AUTO) 7.1 % (1.0-10.0); PLATELET COUNT 275 K/UL (150-450); RED BLOOD COUNT 4.09 M/UL (4.20-5.40); WHITE BLOOD COUNT 4.8 K/UL (4.8-10.8)
[2019-05-31 05:10] LABS: ANION GAP 6 mmol/L (5-15); BLOOD UREA NITROGEN 5 mg/dL (7-18); CALCIUM 8.7 MG/DL (8.5-10.1); CARBON DIOXIDE 27 MMOL/L (21-32); CHLORIDE 108 MMOL/L (98-107); CREATININE 0.6 MG/DL (0.55-1.30); POTASSIUM 3.6 MMOL/L (3.5-5.1); SODIUM 141 MMOL/L (136-145)
[2019-05-31] MEDS: D5 1/2NS w/KCl 20mEq 1,000 ML IV SCH ×3 (05:27→19:07)
[2019-05-31] MEDS ORDERED: PCA HYDROmorphone 1mg/ml 30 ML IV PRN ×3 (06:21→23:45)
[2019-05-31] MEDS: PCA shift volume MISC SCH ×2 (07:00→19:28)
--- NOTE | 2019-05-31 07:22 | NUR ---
NURSE NOTES: Report received from Barbie REYEZ, rounds made. Patient sleeping in supine position in bed. No distress on RA. IVF (D5 1/2 +20KCL at 100 ml/hr and CLASSIFYING MACHINE OPERATOR Dilaudid 0.3 mg/12min/8 mg lockout) infusing to DAYAMI PICC, dressing remains CDI. RLQ abdominal dressing CDI, ileostomy draining yellow/brown output to drainage bag. FC patent to gravity y/cl urine. Call light in reach, bed in lowest position, will continue to monitor.
--- NOTE | 2019-05-31 07:50 | NUR ---
HAND-OFF: Report given to DREEJE Camargo. SALES BROKER settings changed as ordered by Dr Tillman, verified with oncoming RN. SALES BROKER new setting is 0.3 mg bolus, every 12 minutes, max 8 mg/4hour lockout.
--- NOTE | 2019-05-31 09:22 | NUR ---
RD ASSESSMENT & RECOMMENDATIONS SEE CARE ACTIVITY FOR COMPLETE ASSESSMENT DAILY ESTIMATED NEEDS: Needs based on General/ 46.72kg 25-30 kcals/kg 1123-1437 total kcals 1-1.5 g protein/kg 47-70 g total protein 25-30 mL/kg 1122-8557 total fluid mLs NUTRITION DIAGNOSIS: Altered GI function R/T h/o UC, ileostomy as evidenced by h/o proctocolectomy together with Joy continent intestinal reservoir and right salpingo-oophorectomy, s/p multiple Joy pouch revisions, admitted w/ c/o abdominal pain and not been able to insert catheter to BCIR , pending multiple GI evaluations at this time, NPO, to start TPN CURRENT DIET: NPO PO DIET RECOMMENDATIONS: Diet per PARENTERAL NUTRITION RECOMMENDATIONS: D/AA Rate: 57 IL Rate: 8 Total Rate: 65 Volume: 1560 % Dextrose: 16 % AA: 5.0 Energy (kcals/kg): 1401 Protein (g/kg protein): 68 Nonprotein KCALS: 1128 GIR (mg CHO/kg/min): 3.2 % Fat KCALS: 27 NCP: N Ratio: 103.6:1 TPN Comment: * D16% AA 5.0% @ 57ml/hr + IL 20% @ 8ml/hr -> total of 65ml/hr, all 3:1 * TPN at goal will provide 100% est kcal/prot needs -> 30kcal/1.46g prot per kg actual body wt * Rec to initiate TPN slowly @ 25ml/hr x 6 hrs, advance 10ml q 4-6 hrs as tolerated to goal rate. ADDITIONAL RECOMMENDATIONS: * Standing wt as able for accurate CBW -> weekly wt monitoring * Monitor BGs, LFTs, and lytes daily w/ TPN
[2019-05-31] MEDS: DULoxetine 30mg cap ORAL SCH ×2 (09:38→19:00)
--- NOTE | 2019-05-31 11:40 | NUR ---
NURSE NOTES: Patient awake, but drowsy. Notified patient that GI lab will be picking her up for her EGD and Pouchoscopy shortly, verbalized understanding. GI lab pre-op checklist done. Will empty FC and Ileostomy upon cherry picker operator for procedure.
[2019-05-31] MEDS: ALPRAZolam 0.5mg tab ORAL SCH ×2 (12:43→19:00)
[2019-05-31] MEDS ORDERED: Propofol 200mg/20ml IV ONE (13:00)
[2019-05-31] MEDS ORDERED: Lidocaine 1% MPF 10mg/ml 5ml ONE (13:00)
[2019-05-31] MEDS ORDERED: LR 1000ml ONE (13:00)
--- NOTE | 2019-05-31 13:01 | Pre-Procedure Note/Attestation ---
Pre-Procedure Note/Attestation Complete Prior to Procedure Planned Procedure: not applicable Procedure Narrative: esophagogastroduodenoscopy [facility], Indications for Procedure Pre-Operative Diagnosis: abd pain Attestation I attest that I discussed the nature of the procedure; its benefits; risks and complications; and alternatives (and the risks and benefits of such alternatives ), prior to the procedure, with the patient (or the patient's legal outreach representative). I attest that, if there was a reasonable possibility of needing a blood transfusion, the patient (or the patient's legal outreach representative) was given the [facility] standardized written summary, pursuant to the [place] Blood Safety Act ([place] Health and Safety Code # 1645, as amended). I attest that I re-evaluated the patient just prior to the surgery and that there has been no change in the patient's H&P, except as documented below: Franklin Davis MD May 31, 2019 13:01
--- NOTE | 2019-05-31 13:55 | Anethesia Preoperative Eval ---
Anesthesia Pre-op PMH/ROS General Date of Evaluation: May 31, 2019 Time of Evaluation: 12:15 Anesthesiologist: viktor ASA Score: ASA 2 Mallampati Score Class I : Soft palate, uvula, fauces, pillars visible Class II: Soft palate, uvula, fauces visible Class III: Soft palate, base of uvula visible Class IV: Only hard plate visible Mallampati Classification: Class II Surgeon: sharon Diagnosis: anemia Surgical Procedure: EGD Anesthesia History: none Family History: no anesthesia problems Allergies: Coded Allergies: MORPHINE (Verified Allergy, Unknown, Shortness of Breath, 05/29/19) Uncoded Allergies: CONTRAST (Allergy, Unknown, 05/29/19) Medications: see eMAR Patient NPO?: Yes NPO Date: May 31, 2019 NPO Time: 00:01 Past Medical History Cardiovascular: Denies: HTN, CAD, MT, valve dz, arrhythmia, other Pulmonary: Denies: asthma, COPD, CATHI, other Gastrointestinal/Genitourinary: Denies: GERD, CRI, ESRD, other Neurologic/Psychiatric: Reports: dementia, CVA, depression/anxiety, TIA, other Endocrine: Denies: DM, hypothyroidism, steroids, other HEENT: Denies: cataract (L), cataract (R), glaucoma, [place] (L), [place] (R), other Hematology/Immune: Denies: anemia, DVT, bleeding disorder, other Musculoskeletal/Integumentary: Denies: OA, RA, DJD, DDD, edema, other PMH Narrative: colitits PSxH Narrative: hx of razo pouch Anesthesia Pre-op Phys. Exam Physician Exam Last Vital Signs Date Time Temp Pulse Resp B/P (MAP) Pulse Ox O2 Delivery O2 Flow Rate FiO2 05/31/19 12:00 97.5 77 18 106/73 (84) 98 05/31/19 09:00 Room Air Constitutional: NAD Neurologic: CN 2-12 intact Cardiovascular: RRR Respiratory: CTA Gastrointestinal: S/NT/ND Airway Exam Mallampati Classification 2 Mallampati Score: Class II MO: full ROM: full Dentures: no upper, no lower Anesthesia Pre-op A/P Labs Hematology Test 05/31/19 04:30 White Blood Count 4.8 K/UL (4.8-10.8) Red Blood Count 4.09 M/UL (4.20-5.40) L Hemoglobin 9.0 G/DL (12.0-16.0) L Hematocrit 29.3 % (37.0-47.0) L Mean Corpuscular Volume 72 FL (80-99) L Mean Corpuscular Hemoglobin 22.0 PG (27.0-31.0) L Mean Corpuscular Hemoglobin Concent 30.6 G/DL (32.0-36.0) L Red Cell Distribution Width 14.0 % (11.6-14.8) Platelet Count 275 K/UL (150-450) Mean Platelet Volume 4.4 FL (6.5-10.1) L Neutrophils (%) (Auto) 60.0 % (45.0-75.0) Lymphocytes (%) (Auto) 26.2 % (20.0-45.0) Monocytes (%) (Auto) 7.1 % (1.0-10.0) Eosinophils (%) (Auto) 4.7 % (0.0-3.0) H Basophils (%) (Auto) 2.0 % (0.0-2.0) Coagulation Test 05/31/19 04:30 Prothrombin Time 10.6 SEC (9.30-11.50) Prothromb Time International Ratio 1.0 (0.9-1.1) Activated Partial Thromboplast Time 25 SEC (23-33) Chemistry Test 05/31/19 04:30 Sodium Level 141 MMOL/L (136-145) Potassium Level 3.6 MMOL/L (3.5-5.1) Chloride Level 108 MMOL/L (98-107) H Carbon Dioxide Level 27 MMOL/L (21-32) Anion Gap 6 mmol/L (5-15) Blood Urea Nitrogen 5 mg/dL (7-18) L Creatinine 0.6 MG/DL (0.55-1.30) Estimat Glomerular Filtration Rate > 60 mL/min (>60) Glucose Level 104 MG/DL (74-106) Hemoglobin A1c 5.4 % (4.3-6.0) Calcium Level 8.7 MG/DL (8.5-10.1) Studies Pre-op Studies: EKG - sr Risk Assessment & Plan Plan: mac Pre-Antibiotics Drug: none Azucena Carrasco CRNA May 31, 2019 13:55
--- NOTE | 2019-05-31 13:55 | Immediate Post-Op Evaluation ---
Immediate Post-Op Evalulation Immediate Post-Op Evalulation Procedure: egd Date of Evaluation: May 31, 2019 Time of Evaluation: 12:56 IV Fluids: 300 Blood Pressure Systolic: 111 Blood Pressure Diastolic: 71 Pulse Rate: 74 Respiratory Rate: 14 O2 Sat by Pulse Oximetry: 98 Temperature (Fahrenheit): 97.0 Nausea: No Vomiting: No Complications none Patient Status: awake, reacts, patent Hydration Status: adequate Drug: none Azucena Carrasco CRNA May 31, 2019 13:55
--- NOTE | 2019-05-31 14:30 | NUR ---
NURSE NOTES: Patient sent down to GI lab at 1315 via [facility], checklist and verification done with MR# and , ileostomy and FC emptied prior, see flowsheet for outputs, returned at 1430, via [facility], in stable condition, no distress on RA, sleeping. Will review orders. Patient connected to IVF/DOWEL SETTING MACHINE OPERATOR as ordered to [facility] PICC (flushed, patent). FC/ileostomy in place to gravity. Will continue to monitor.
--- NOTE | 2019-05-31 16:10 | Endoscopy Procedure Note ---
Endoscopy Procedure Note General Indication for Procedure: abd pain Procedures Performed: EGD, other - pouchoscopy Operative Findings/Diagnosis: gastritis, small bowel polyp Specimen: yes Pt Tolerated Procedure Well: Yes Estimated Blood Loss: none Anesthesia Anesthesiologist: ángela Anesthesia: MAC Inserted Devices Implant(s) used?: No GI Core Measures 50 yrs or older w/o bx or poly: Not Applicable 10yrs. F/U recommended: Not Applicable Franklin Davis MD May 31, 2019 16:10
--- NOTE | 2019-05-31 17:15 | Progress Note ---
DATE: 05/31/2019 ACUTE PAIN MANAGEMENT PHYSICIAN PROGRESS NOTE. OBJECTIVE: VITAL SIGNS: Afebrile, pulse 79, respirations 18, blood pressure 96/57, and oxygen saturation 97% on room air. LABORATORY STUDIES: From this morning, May 31, 2019 shows white count 5, hematocrit 29, platelets 275. Sodium 141, potassium 3.6, chloride 108, BUN 5, creatinine 0.6, glucose 104. Hemoglobin A1c 5.4. Lactic acid 8.7. INR 1.0 and PTT 25. MEDICATIONS: Medication administration record reviewed. Medications include Cymbalta 60 mg b.i.d., TPN, Seroquel, Xanax. P.r.n. medications include Zofran, Ambien, simethicone, Narcan, Benadryl, Dilaudid 1.5 mg subcutaneously every three hours p.r.n., Dilaudid oral 8 mg q.4 h p.r.n, Dilaudid CRUSHER AND BINDER OPERATOR with 0.3 mg demand dose at 12-minute lockout and 8 mg 4-hour limit. Dr. Miller ordered abdominal CT scan with contrast which suggested possible partial torsion or volvulus of pouch. Dr. Miller ordered to place a PICC line and to insert a Morgan catheter for postvoid residual of 408 mL of urine after the patient voided 650 mL of urine on her own. Dr. Miller ordered an EGD and pouch endoscopy. Consultation has been made with Dr. Davis along with psychiatry per Dr. Miller. I spoke with the overnight nurse, as well as today's day nurse RN, Mary Jo while the patient is awake. Presently, she has been sleeping on and off for the past 18 hours, sometimes quite sedated. I changed her CRUSHER AND BINDER OPERATOR settings to 0.3 mg with a 12-minute lockout. There is no underlying basal or continuous rate. The patient has not requested any breakthrough doses of subcutaneous oral Dilaudid pills. The patient remains to have periods of significant anxiety. She remains on her scheduled Xanax which she presented to the emergency room at this hospital on a considerable dose of 2 mg three times a day on a scheduled basis. Oversedation seems to be a problem, perhaps decreasing Xanax dose may be necessary. For now, the patient continues on her Dilaudid CRUSHER AND BINDER OPERATOR which she has been using on a daily basis for many many months in [place]. I will renew the CRUSHER AND BINDER OPERATOR at this time. We will await EGD and pouch endoscopy results. to determine the next course of action. The patient continues to use her nightly Seroquel 100 mg at bedtime. The patient is clearly narcotic dependence, both with high dose of benzodiazepines along with high dose opioids. Long-term usage of home IV Dilaudid CRUSHER AND BINDER OPERATOR did not seem to be reasonable strategy per Dr. Miller and myself. We will see how the current hospital workup continues. Again Dr. Miller and I both suggest trial of methadone would be quite beneficial, especially if she remains in the hospital setting for long period of time, to help transition off of parenteral narcotics. The patient does state that dose of 8 mg oral Dilaudid has been tolerated. Certainly conversion to frequent doses of high dose oral Dilaudid could be a possibility; however, if she remains opioid dependent on high dose narcotics, long-acting agents certainly should be trialed in the inpatient or outpatient arena. I saw the patient at bedside this morning. The patient is smiling and moving around in the bed quite freely. She is having lengthy conversations with medical staff. She has been smiling intermittently and even makes jokes suggesting that her spirits are good. She has been restarted on Cymbalta 60 mg b.i.d. it is unclear why this medication had been discontinued recently unless the patient was unable or unwilling to pay the co-pay back in [place]. Ranjit Tillman M.D. DR: Bernardo JOB#: [id number] CC:
--- NOTE | 2019-05-31 17:20 | General Progress Note ---
Progress Note Progress Note AVSS Underwent EGD - gastritis and Joy Pouch endoscopy - no acute findings continued need for dilaudid PHYSICAL CHEMIST being managed by Dr. Tillman Psychiatry evaluation pending Abdomen not distended WBC 4800 Hgb 9 Iron 18 (50-175) Ferritin 2 (8-388) albumin 3.3 Vitamin B12 348 Urine 1725 BCIR ileo 1020 (includes oral contrast) Per Radiologist: on CT scan there is a very unusual configuration of the Joy pouch of with ? rotation Imp. Severe abdominal pain of uncertain etiology - work-up in progress Malnutrition Severe iron deficiency Plan: npo, TPN per GI, urinary Morgan catheter Venofer continuous drainage of Joy Pouch Will need gastrograffin Pouchogram next few days Nolan Miller MD May 31, 2019 17:20
--- NOTE | 2019-05-31 18:00 | NUR ---
NURSE NOTES: Patient updated on orders s/p EGD/pouchoscopy, continue with NPO status (except ice chips and meds), will start TPN tonight, IVF will decrease to 30 ml/hr, bedside glucose testing every 6 hours, patient verbalized understanding. Dressing to ileostomy changed with 4x4 gauze and medipore tape (per patient request) at 1510, surrounding skin intact, no redness or swelling, stoma bright red, flushed ileostomy every 3 hours with NS as ordered, tolerated well.
--- NOTE | 2019-05-31 19:10 | NUR ---
NURSE NOTES: Patient has IVF running at 1730 and 1830, IV spreadsheet states bag is empty, however there is still fluids in bag. IV bag changed at this time, rate 100 ml/hr. Will endorse to PM RN to change rate to 30 ml/hr when TPN is started.
--- NOTE | 2019-05-31 19:24 | NUR ---
CASE MANAGEMENT: REVIEW SI: ANEMIA . CHRONIC ABD PAIN S/P MULTIPLE REVISIONS OF ILEOSTOMY PROCEDURE . EGD / MAYELA POUCH ENDOSCOPY w/BIOPSY 05/31 T 97.2 HR 76 RR 17 BP 107/73 SAT 100% ROOM AIR H/H 9.0/29.3 IS: TPN IV Q24HR VENOFER IV QHS COMMERCIAL GREEN BUILDING ARCHITECT DILAUDID VIT K SQ QWEEK MED/SURG STATUS DCP: PATIENT IS FROM HOME
--- NOTE | 2019-05-31 19:25 | NUR ---
HAND-OFF: Report given to Barbie REYEZ. Outputs: Morgan 750 ml Ileostomy 605 ml Addendum: 05/31/19 at 2038 by Mary Jo Atkins RN Endorsed to change rate to 30 ml/hr when TPN is started, Bedside glucose Q6hr, TPN at 2100.
--- NOTE | 2019-05-31 19:26 | NUR ---
NURSE NOTES: Received report from DEREJE Camargo. Patient alert, sitting up in bed. RECLAMATION ENGINEER checked with dayshift nurse, RECLAMATION ENGINEER button within reach. PICC line intact, patent, DAYAMI. Morgan catheter intact, patent, draining clear yellow urine. Ileo site dressing dry and intact, ileo patent to drainage bag. Bed in low position, locked, side rails up x2, call light within reach. Will continue to monitor.
[2019-05-31] MEDS: Dyna-Hex 2% Top Sol 2oz TOPIC SCH (20:29)
--- NOTE | 2019-05-31 20:45 | Procedure Note ---
DATE OF PROCEDURE: 05/31/2019 SURGEON: Franklin Davis M.D. REFERRING PHYSICIAN: Nolan Miller M.D. PROCEDURE: Upper endoscopy with biopsy and pouchoscopy. ANESTHESIA: Per TELEGRAPH REPEATER TECHNICIAN, Azucena Tarrillbarbara. INSTRUMENT: Olympus adult flexible upper endoscope. INDICATION: Abdominal pain. REASON FOR PROCEDURE: The procedure, risks, benefits, and possible consequences, including hemorrhage, aspiration, perforation and infection, and alternative treatments, were explained to the patient/legal guardian by Dr. Franklin Davis and the patient/legal guardian understood and accepted these risks. PROCEDURE IN DETAIL: After informed consent was obtained and the patient was adequately sedated, Olympus upper endoscope was advanced from mouth into second portion of the duodenum and retroflexion was performed in the stomach. The patient had evidence of diffuse gastritis. Random biopsy from antrum was obtained to rule out H. pylori infection. The patient had evidence of some mild bile reflux without any obvious severe gastritis. At this time, the upper endoscope was retrieved and the patient was turned over for pouchoscopy. Using the same scope we introduced through the pouch. There was evidence of one polyp right at pouch measured roughly about 4 mm, removed with cold biopsy forceps technique. Then, we passed the scope into the proximal small bowel in the area of the anastomosis, there was no evidence of any ulceration. No obvious bleeding. No recurrent polyps were seen. The patient tolerated the procedure very well without any complication. SUMMARY OF FINDINGS: 1. GE junction at about 40 cm from the incisors without any esophagitis. 2. Gastritis, status post biopsy. 3. One polyp in the small intestine pouch, otherwise normal pouchoscopy. RECOMMENDATIONS: Follow pathology and treat accordingly. I want to thank Dr. Nolan Miller for this kind referral. Franklin Davis M.D. DR: MARY JOB#: [id number] CC:
[2019-05-31] MEDS ORDERED: Dextrose 10% 1,000 ML IV PRN (21:00)
[2019-05-31] MEDS: Iron Sucrose 100 MG in NS 55 ML IV SCH (21:12)
[2019-05-31] MEDS: Fat Emulsion Iv 20% 192 ML in Tpn 1,368 ML IV SCH (21:13)
[2019-05-31] MEDS ORDERED: NS Irrig 1000ml ONE (22:19)
[2019-05-31] MEDS ORDERED: Tubing IV Secondary IV ONE (22:19)
[2019-06-01] VITALS: BP 116/76
--- NOTE | 2019-06-01 | NUR ---
Ambulating in hallway with assistance, tolerated fairly well.
[2019-06-01] MEDS: NovoLOG Insulin Flexpen SUBQ SCH ×4 (00:35→18:00)
[2019-06-01 04:15] VITALS: BP 110/78
--- NOTE | 2019-06-01 04:26 | NUR ---
NURSE NOTES: SUPERVISOR DISPLAY FABRICATION tubing and syringe changed. 27.9 ML volume in syringe.
[2019-06-01 05:53] LABS: BASOPHILS % (AUTO) 0.4 % (0.0-2.0); EOSINOPHILS % (AUTO) 2.8 % (0.0-3.0); HEMATOCRIT 31.6 % (37.0-47.0); HEMOGLOBIN 9.7 G/DL (12.0-16.0); LYMPHOCYTES % (AUTO) 18.6 % (20.0-45.0); MEAN CORPUSCULAR VOLUME 73 FL (80-99); MONOCYTES % (AUTO) 6.6 % (1.0-10.0); NEUTROPHILS % (AUTO) 71.7 % (45.0-75.0); PLATELET COUNT 272 K/UL (150-450); RED BLOOD COUNT 4.35 M/UL (4.20-5.40); RED CELL DISTRIBUTION WIDTH 13.8 % (11.6-14.8); WHITE BLOOD COUNT 5.4 K/UL (4.8-10.8)
[2019-06-01 06:18] LABS: ANION GAP 6 mmol/L (5-15); BLOOD UREA NITROGEN 6 mg/dL (7-18); CALCIUM 9.3 MG/DL (8.5-10.1); CARBON DIOXIDE 29 MMOL/L (21-32); CHLORIDE 104 MMOL/L (98-107); CREATININE 0.6 MG/DL (0.55-1.30); PHOSPHORUS 4.3 MG/DL (2.5-4.9); POTASSIUM 3.8 MMOL/L (3.5-5.1); SODIUM 138 MMOL/L (136-145)
--- NOTE | 2019-06-01 06:39 | NUR ---
NURSE NOTES: Received orders from Dr Tillman to decrease bolus dosage of RN ALLERGY to .2 mg. Order carried out, verified with charge nurse, DEREJE Garcia.
[2019-06-01] MEDS: PCA shift volume MISC SCH ×2 (07:00→19:28)
[2019-06-01] MEDS ORDERED: Rate Change PCA 1 Each MISC PRN (07:45)
--- NOTE | 2019-06-01 07:50 | NUR ---
HAND-OFF: Report given to DEREJE Barrera. No distress noted.BEAD INSPECTOR setting checked with AM nurse.
--- NOTE | 2019-06-01 07:51 | NUR ---
NURSE NOTES: Mariam Valentin RN. Rounding done with outgoing nurse. Pt a/o x 4, in bed. No respiratory distress noted. c/o abdominal pain as 8/10. Encourage to push STAMPING PRESS OPERATOR. Ileostomy drainage bag is patent, greenish color noted. Abdominal dressing is C/D/I. Pt on NPO. Bed in lowest position, call light within reach. Will continue to monitor.
[2019-06-01 08:00] VITALS: BP 112/70
[2019-06-01] MEDS ORDERED: PCA HYDROmorphone 1mg/ml 30 ML IV PRN ×2 (08:10→23:45)
[2019-06-01] MEDS ORDERED: HYDROmorphone 4mg tab ORAL PRN (08:15)
[2019-06-01] MEDS ORDERED: ALPRAZolam 0.5mg tab ORAL PRN (08:15)
--- NOTE | 2019-06-01 08:38 | General Progress Note ---
Assessment/Plan Problem List: (1) Anemia ICD Codes: D64.9 - Anemia, unspecified SNOMED: 916525163 (2) Iron deficiency ICD Codes: E61.1 - Iron deficiency SNOMED: 61862556 (3) Ileostomy present ICD Codes: Z93.2 - Ileostomy status SNOMED: 108947048 (4) History of ulcerative colitis ICD Codes: Z87.19 - Personal history of other diseases of the digestive system SNOMED: 716491601 (5) Abdominal pain ICD Codes: R10.9 - Unspecified abdominal pain SNOMED: 72990622 Assessment/Plan: s/p EGD and pouchoscopy: SUMMARY OF FINDINGS: 1. GE junction at about 40 cm from the incisors without any esophagitis. 2. Gastritis, status post biopsy. 3. One polyp in the small intestine pouch, otherwise normal pouchoscopy. iv iron TPN pain control pouchogram for Monday fu labs fu surg recs fu path Subjective ROS Limited/Unobtainable: Yes Allergies: Coded Allergies: MORPHINE (Verified Allergy, Unknown, Shortness of Breath, 05/29/19) Uncoded Allergies: CONTRAST (Allergy, Unknown, 05/29/19) Objective Last 24 Hour Vital Signs Date Time Temp Pulse Resp B/P (MAP) Pulse Ox O2 Delivery O2 Flow Rate FiO2 06/01/19 08:00 98.8 90 20 112/70 (84) 97 06/01/19 04:26 16 06/01/19 04:15 97.7 85 18 110/78 (89) 96 06/01/19 04:00 16 06/01/19 02:00 86 16 100 06/01/19 00:00 18 06/01/19 00:00 98.0 94 18 116/76 (89) 97 05/31/19 21:00 Room Air 05/31/19 20:00 97.5 98 18 119/70 (86) 96 05/31/19 20:00 18 05/31/19 16:00 16 05/31/19 16:00 97.5 78 16 102/69 (80) 100 05/31/19 14:34 97.2 76 17 106/73 100 Room Air 05/31/19 14:30 97.9 99 18 120/84 (96) 100 05/31/19 14:25 71 15 105/72 100 Room Air 05/31/19 14:15 77 16 110/70 100 Room Air 05/31/19 14:00 80 17 108/73 100 Room Air 05/31/19 13:55 74 14 98 05/31/19 13:50 79 14 105/80 100 Room Air 05/31/19 13:45 97.0 71 16 111/71 100 Room Air 05/31/19 12:00 97.5 77 18 106/73 (84) 98 05/31/19 12:00 16 05/31/19 09:00 Room Air Intake and Output 05/31/19 06/01/19 18:59 06:59 Intake Total 1240 ml 855 ml Output Total 1355 ml 725 ml Balance -115 ml 130 ml Intake Oral 240 ml IV Total 1000 ml 855 ml Output Urine Total 750 ml 375 ml Other 605 ml 350 ml Laboratory Tests 06/01/19 04:50: White Blood Count 5.4, Red Blood Count 4.35, Hemoglobin 9.7L, Hematocrit 31.6L, Mean Corpuscular Volume 73L, Mean Corpuscular Hemoglobin 22.3L, Mean Corpuscular Hemoglobin Concent 30.7L, Red Cell Distribution Width 13.8, Platelet Count 272, Mean Platelet Volume 4.5L, Neutrophils (%) (Auto) 71.7, Lymphocytes (%) (Auto) 18.6L, Monocytes (%) (Auto) 6.6, Eosinophils (%) (Auto) 2.8, Basophils (%) (Auto) 0.4, Sodium Level 138, Potassium Level 3.8, Chloride Level 104, Carbon Dioxide Level 29, Anion Gap 6, Blood Urea Nitrogen 6L, Creatinine 0.6, Estimat Glomerular Filtration Rate > 60, Glucose Level 96, Calcium Level 9.3, Phosphorus Level 4.3, Magnesium Level 1.6L Height (Feet): 5 Height (Inches): 3.00 Weight (Pounds): 103 General Appearance: alert EENT: normal ENT inspection Neck: supple Cardiovascular: normal rate Respiratory/Chest: lungs clear Abdomen: soft, hypoactive bowel sounds, tender Extremities: non-tender Franklin Davis MD Jun 01, 2019 08:38
[2019-06-01] MEDS: DULoxetine 30mg cap ORAL SCH ×2 (09:04→18:10)
[2019-06-01] MEDS ORDERED: TransDerm Scop 1.5mg/72HR Patch TDERMAL ONE (09:15)
--- NOTE | 2019-06-01 09:25 | General Progress Note ---
Progress Note Progress Note AVSS Not using POST GRADUATE INTERN very much per Dr. Tillman Abdomen soft, non-tender Urine 1125 BCIR ileo 875 WBC 5400 Hgb 9.7 (up - on Venofer) Mg low 1.6 Imp: Abdominal pain after 8 month hospital stay in [place] Has undergone: EGD (min gastritis), Joy pouch endoscopy - no abnormalities (one small polyp), CT abd+pelvis - abnormal configuration of Joy pouch ?? significance Plan: Clear liquid diet continue TPN and Venofer and continuous drainage of Joy continent ileostomy pouch Pouchogram XRay on Monday Ambulate TID Nolan Miller MD Jun 01, 2019 09:25
[2019-06-01] MEDS ORDERED: Ascorbic Acid 500mg tab ORAL PRN (09:30)
[2019-06-01] MEDS ORDERED: Vitamin B12 1000mcg/ml Inj IM SCH (10:30)
[2019-06-01 12:00] VITALS: BP 115/75
--- NOTE | 2019-06-01 13:30 | NUR ---
NURSE NOTES: Patient ambulated hallway x 2 with assistance. Pt was in steady gait.
[2019-06-01] MEDS ORDERED: NS Irrig 1000ml ONE (15:49)
[2019-06-01 16:00] VITALS: BP 115/82
--- NOTE | 2019-06-01 17:51 | NUR ---
NURSE NOTES: Ambulating hallway x2 with assistance in stable condition.
[2019-06-01] MEDS ORDERED: PCA shift volume MISC SCH (19:00)
[2019-06-01] MEDS: HYDROmorphone 1mg/ml Carpuject SUBQ PRN (19:23)
--- NOTE | 2019-06-01 19:26 | NUR ---
HAND-OFF: Report given to DEREJE Hines. Pt in stable condition.
--- NOTE | 2019-06-01 19:30 | NUR ---
NURSE NOTES: Receive a report from DEREJE Barrera. Pt is awake and alert. Breathing is even and non labored. Pt states that she has so much pain and WELD INSPECTOR is not helping much. PRN pain medication given. Will continue to monitor.
--- NOTE | 2019-06-01 20:00 | Progress Note ---
DATE: 06/01/2019 ACUTE PAIN MANAGEMENT PHYSICIAN PROGRESS NOTE MEDICATIONS: Medication administration record reviewed. Medications include Xanax, TPN, Benadryl, Cymbalta, Dilaudid MARKETING SYSTEMS ANALYST, oral Dilaudid, subcutaneous Dilaudid, Zofran, Seroquel nightly, simethicone, Ambien, vitamin K. LABORATORY STUDIES: From this morning, June 01, 2019, shows white count 5, hematocrit 32, and platelets 272,000. Sodium 138, potassium 3.8, chloride 104, bicarb 29, BUN 6, creatinine 0.6, glucose 96, calcium 9.3, phosphorus 4.3, magnesium 1.6. VITAL SIGNS: Afebrile, pulse 85, respirations 16, blood pressure 110/78, and oxygen saturation 96% on room air. I saw the patient at bedside. I discussed the case with the nurse. I discussed the case in detail with the surgeon, Dr. Nolan Miller. The patient underwent an EGD and pouchoscopy. The results will be discussed per Dr. Miller's reports. I spoke further in length with the patient regarding her narcotic usage. The patient states that 5 months ago, she had been using Adderall, but discontinued it after she states that she developed palpitations and in fact required defibrillator usage for flat-lining. The patient also stated that she does have a medical marijuana card in [place], however, she has not used marijuana for the past 5 months. I discussed with Dr. Miller. We will order urine toxicology screen. The patient's usage of MARKETING SYSTEMS ANALYST Dilaudid over the past 48 hours has been much less than would have been expected based upon her usage of home Dilaudid MARKETING SYSTEMS ANALYST for the past 5 months, especially when the patient stated that she was requiring Dilaudid pills of [address]. [address] Miller and I were quite surprised that her usage of the MARKETING SYSTEMS ANALYST has been only 1-2 mg every 4-6 hours with total consumption and the patient has been sleeping soundly for the night, often times 6-8 hours straight. Certainly, the pain is not waking her up in the middle of the night. Dr. Miller and I discussed in detail and we discussed with the patient that we will try to wean her off of the MARKETING SYSTEMS ANALYST over the next 24 hours and we will discontinue MARKETING SYSTEMS ANALYST tomorrow morning. The patient states that the oral Dilaudid pills, while effective, cause her more nausea than the IV Dilaudid. We explained that one of our goals is to get her off the 24-hour requirement for MARKETING SYSTEMS ANALYST Dilaudid, which she has been using for the past many months. The patient agreed for a trial. I will order a scopolamine patch as the patient denies glaucoma symptoms. Hopefully, the scopolamine patch will help reduce the nausea symptoms, which occur with the oral Dilaudid pills. Also, the nausea may be due to using such a high dose of 8 mg oral Dilaudid. I will decrease it to 4 mg oral Dilaudid p.o. available every 4 hours p.r.n. moderate pain. I will continue the subcutaneous Dilaudid injection via the subcutaneous route every 3 hours p.r.n. for severe breakthrough pain and I will discontinue the MARKETING SYSTEMS ANALYST early tomorrow morning. I will confirm this order with the pharmacist. The patient also is benzodiazepine dependent. She uses Xanax 2 mg every night with her Seroquel for her insomnia, but the patient does state that this dosing when taken together allows her to sleep soundly throughout the night. I made available Xanax 2 mg to be taken with a nightly Seroquel 100 mg dose. I then spoke with the patient and she accepted to resist her other 2 doses of Xanax to p.r.n. basis, so I have made available Xanax 2 mg p.r.n. b.i.d. for her daytime usage of Xanax. Now, she will only have 1 scheduled dose nightly. I explained the patient that she certainly has become psychologically and physically dependent on narcotics with her continued home IV MARKETING SYSTEMS ANALYST usage over the past 5 months of Dilaudid. The patient understands and is trying to be optimistic with this trial to come off the MARKETING SYSTEMS ANALYST unit. I will defer the surgical options and many other recommendations to Dr. Miller who is following the patient closely. Ranjit Tillman M.D. DRCindy Chang JOB#: [id number] CC:
[2019-06-01 20:45] VITALS: BP 107/66
[2019-06-01] MEDS ORDERED: ALPRAZolam 0.5mg tab ORAL SCH (21:00)
[2019-06-01] MEDS: Dyna-Hex 2% Top Sol 2oz TOPIC SCH (21:35)
[2019-06-01] MEDS: D5 1/2NS w/KCl 20mEq 1,000 ML IV SCH (21:36)
[2019-06-01] MEDS: Iron Sucrose 100 MG in NS 55 ML IV SCH (21:41)
[2019-06-01] MEDS: Fat Emulsion Iv 20% 192 ML in Tpn 1,368 ML IV SCH (21:47)
--- NOTE | 2019-06-01 22:30 | NUR ---
NURSE NOTES: Pt is awake but looks sleepy. No noted dizziness. Wants to ambulate unit before sleep. Done ambulation with staff member without dizziness. TPN running via PICC. Morgan catheter inserted state with yellowish urine draining without hematuria or sediments. Watery brownish drainage via ileostomy natural draining with N/S 20ml irrigation. Will continue to monitor.
[2019-06-02] VITALS (7 sets, daily range): BP systolic 97–128; BP diastolic 53–83
--- NOTE | 2019-06-02 00:15 | NUR ---
NURSE NOTES: Pt states that she forgets to have diallo catheter and voided 10ml of bloody urine in the toilet. v/s is stable and check diallo catheter is patent with blood clog and urine. No bleeding noted through urethra area and catheter in placed. Call Dr. Miller. Will continue to monitor.
--- NOTE | 2019-06-02 00:20 | NUR ---
NURSE NOTES: Receive a call from Dr. Miller and notify for pt's conditions. Will be observation for now. Will continue to monitor.
[2019-06-02] MEDS: DiphenhydrAMINE 50mg/ml Inj IVP PRN ×2 (00:52→10:00)
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
[2019-06-02 05:27] LABS: BASOPHILS % (AUTO) 0.4 % (0.0-2.0); EOSINOPHILS % (AUTO) 2.4 % (0.0-3.0); HEMATOCRIT 28.4 % (37.0-47.0); LYMPHOCYTES % (AUTO) 12.6 % (20.0-45.0); MEAN CORPUSCULAR VOLUME 72 FL (80-99); MONOCYTES % (AUTO) 7.5 % (1.0-10.0); NEUTROPHILS % (AUTO) 77.1 % (45.0-75.0); PLATELET COUNT 238 K/UL (150-450); RED BLOOD COUNT 3.97 M/UL (4.20-5.40); RED CELL DISTRIBUTION WIDTH 13.8 % (11.6-14.8); WHITE BLOOD COUNT 8.9 K/UL (4.8-10.8)
[2019-06-02 05:49] LABS: ALANINE AMINOTRANSFERASE 17 U/L (12-78); ALBUMIN 2.9 G/DL (3.4-5.0); ALBUMIN/GLOBULIN RATIO 0.9 (1.0-2.7); ALKALINE PHOSPHATASE 69 U/L (46-116); ANION GAP 7 mmol/L (5-15); ASPARTATE AMINO TRANSFERASE 17 U/L (15-37); BILIRUBIN,TOTAL 0.2 MG/DL (0.2-1.0); BLOOD UREA NITROGEN 13 mg/dL (7-18); CALCIUM 8.5 MG/DL (8.5-10.1); CARBON DIOXIDE 29 MMOL/L (21-32); CHLORIDE 103 MMOL/L (98-107); CREATININE 0.5 MG/DL (0.55-1.30); POTASSIUM 3.6 MMOL/L (3.5-5.1); SODIUM 139 MMOL/L (136-145)
[2019-06-02] MEDS: NovoLOG Insulin Flexpen SUBQ SCH ×4 (06:00→18:00)
--- NOTE | 2019-06-02 06:09 | General Progress Note ---
Assessment/Plan Problem List: (1) Anemia ICD Codes: D64.9 - Anemia, unspecified SNOMED: 113196149 (2) Iron deficiency ICD Codes: E61.1 - Iron deficiency SNOMED: 38621697 (3) Ileostomy present ICD Codes: Z93.2 - Ileostomy status SNOMED: 250223918 (4) History of ulcerative colitis ICD Codes: Z87.19 - Personal history of other diseases of the digestive system SNOMED: 825438666 (5) Abdominal pain ICD Codes: R10.9 - Unspecified abdominal pain SNOMED: 89811084 Assessment/Plan: s/p EGD and pouchoscopy: SUMMARY OF FINDINGS: 1. GE junction at about 40 cm from the incisors without any esophagitis. 2. Gastritis, status post biopsy. 3. One polyp in the small intestine pouch, otherwise normal pouchoscopy. iv iron TPN pain control pouchogram for Monday fu labs fu surg recs fu path Subjective ROS Limited/Unobtainable: Yes Allergies: Coded Allergies: MORPHINE (Verified Allergy, Unknown, Shortness of Breath, 05/29/19) Uncoded Allergies: CONTRAST (Allergy, Unknown, 05/29/19) Objective Last 24 Hour Vital Signs Date Time Temp Pulse Resp B/P (MAP) Pulse Ox O2 Delivery O2 Flow Rate FiO2 06/02/19 04:00 17 06/02/19 04:00 98.0 85 16 98/53 (68) 97 06/02/19 00:15 98.3 83 17 127/78 (94) 99 06/02/19 00:00 14 06/01/19 21:00 Room Air 06/01/19 20:45 97.7 86 17 107/66 (80) 99 06/01/19 20:00 17 06/01/19 19:53 97.7 06/01/19 16:00 20 06/01/19 16:00 98.2 95 18 115/82 (93) 99 06/01/19 12:00 98.6 92 18 115/75 (88) 98 06/01/19 12:00 18 06/01/19 09:00 Room Air 06/01/19 08:00 98.8 90 20 112/70 (84) 97 06/01/19 08:00 20 Intake and Output 06/01/19 06/02/19 19:00 07:00 Intake Total 2141 ml Output Total 2070 ml Balance 71 ml Intake Oral 1090 ml IV Total 1051 ml Output Urine Total 1200 ml Other 870 ml Laboratory Tests 06/01/19 10:55: Urine Opiates Screen Negative, Urine Barbiturates Screen Negative, Phencyclidine (PCP) Screen Negative, Urine Amphetamines Screen Negative, Urine Benzodiazepines Screen PositiveH, Urine Cocaine Screen Negative, Urine Marijuana (THC) Screen Negative 06/02/19 04:45: White Blood Count 8.9#, Red Blood Count 3.97L, Hemoglobin 9.0L, Hematocrit 28.4L , Mean Corpuscular Volume 72L, Mean Corpuscular Hemoglobin 22.8L, Mean Corpuscular Hemoglobin Concent 31.8L, Red Cell Distribution Width 13.8, Platelet Count 238, Mean Platelet Volume 4.2L, Neutrophils (%) (Auto) 77.1H, Lymphocytes (%) (Auto) 12.6L, Monocytes (%) (Auto) 7.5, Eosinophils (%) (Auto) 2.4, Basophils (%) (Auto) 0.4, Sodium Level 139, Potassium Level 3.6, Chloride Level 103, Carbon Dioxide Level 29, Anion Gap 7, Blood Urea Nitrogen 13, Creatinine 0.5L, Estimat Glomerular Filtration Rate > 60, Glucose Level 106, Calcium Level 8.5, Magnesium Level 2.0, Total Bilirubin 0.2, Aspartate Amino Transf (AST/SGOT) 17, Alanine Aminotransferase (ALT/SGPT) 17, Alkaline Phosphatase 69, Total Protein 6.3L, Albumin 2.9L, Globulin 3.4, Albumin/ Globulin Ratio 0.9L Height (Feet): 5 Height (Inches): 3.00 Weight (Pounds): 103 General Appearance: alert EENT: normal ENT inspection Neck: supple Cardiovascular: normal rate Respiratory/Chest: lungs clear Abdomen: soft, hypoactive bowel sounds, tender Extremities: non-tender Franklin Davis MD Jun 02, 2019 06:09
--- NOTE | 2019-06-02 06:55 | NUR ---
NURSE NOTES: Spoke with Dr. Tillman and receive a order to discontinue CAMPUS DIRECTOR pump and manage pain with prn medication. Explain to pt about pain management and stop CAMPUS DIRECTOR pump. Discard Dilaudid syringe to waste bin. Will continue to monitor.
--- NOTE | 2019-06-02 07:25 | NUR ---
NURSE NOTES: Report received from o RN, rounds made. Patient sleeping in semi-fowlers position in bed. No distress on RA. TPN (@65 ml/hr) and IVF (D5 1/2 +20KCL @30 ml/hr) infusing to DAYAMI PICC, dressing CDI. FC drainage bag y/cl urine, blood residue noted in upper part of tubing from manufacturing supervisor 2nd shift. RLQ ileostomy, drainage bag in place, small amount of dark green output noted. Call light in reach, bed in lowest position, will continue to monitor.
--- NOTE | 2019-06-02 07:30 | NUR ---
HAND-OFF: Report given to DEREJE Camargo. Done rounds. Pt is asleep.
[2019-06-02] MEDS: DULoxetine 30mg cap ORAL SCH ×2 (08:32→17:12)
[2019-06-02] MEDS: HYDROmorphone 1mg/ml Carpuject SUBQ PRN ×3 (08:33→17:16)
[2019-06-02] MEDS ORDERED: ALPRAZolam 0.5mg tab ORAL PRN (08:45)
[2019-06-02] MEDS ORDERED: Zolpidem 5mg tab ORAL PRN (08:45)
--- NOTE | 2019-06-02 09:51 | General Progress Note ---
Progress Note Progress Note AVSS Tolerated clear liquids 30% of meals, and abdominal pain is less with indwelling BCIR pouch catheter Appreciate Dr. Sepulveda's Psychiatric evaluation Abdomen soft, non-tender Urine 2100 BCIR ileo 1110 Albumin 2.9 labs okay Imp. Abdominal pain R/O partial torsion of BCIR continent ileostomy pouch Malnutrition Profound iron deficiency Plan: TPN, Venofer daily Pouchogram with retrograde SBS XRay in AM d/c urinary Morgan Nolan Miller MD Jun 02, 2019 09:51
[2019-06-02] MEDS: HYDROmorphone 4mg tab ORAL PRN ×3 (09:59→18:53)
--- NOTE | 2019-06-02 13:00 | NUR ---
NURSE NOTES: Called Dr. Tillman with updates on patient status, reviewed pain management and tolerance. Patient states Dilaudid SQ is not effective. Patient is requesting Dilaudid 2 mg IVP, Dilaudid 1.6-1.8 every hour with SUPERVISOR WIRE ROPE FABRICATION pump, Dilaudid [address] Tillman orders were to give Dilaudid 1 mg SQ now, then Xanax 2 mg PO at 1400, then Dilaudid 4 mg PO at 1500. Will follow as ordered and update patient with plan of care.
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
--- NOTE | 2019-06-02 17:41 | NUR ---
CASE MANAGEMENT: REVIEW SI: ANEMIA . CHRONIC ABD PAIN S/P MULTIPLE REVISIONS OF ILEOSTOMY PROCEDURE . EGD / MAYELA POUCH ENDOSCOPY w/BIOPSY 05/31 T 97.7 HR 92 RR 19 BP 97/63 SAT 97% ROOM AIR H/H 9.0/28.4 IS: TPN IV Q24HR VENOFER IV QHS DILAUDID SUBQ Q3HR PRN VIT K SQ QWEEK MED/SURG STATUS DCP: PATIENT IS FROM HOME
--- NOTE | 2019-06-02 19:05 | NUR ---
HAND-OFF: Report given to Flora REYEZ. Outputs: Morgan(discontinued at 1140)/Urine (voided x3 after FC discontinued): 550 ml Ileostomy: 870 ml
--- NOTE | 2019-06-02 19:30 | NUR ---
NURSE NOTES: Pt is ambulating in the unit socializing other pt. Alert and orientated x 4. No dizziness noted. States that she did not eat dinner and wants to drink ice tea. Provide ice and hot tea. Expresses her tiredness. Escort her room and make pt to take a rest. Will continue to monitor.
[2019-06-02] MEDS: Dyna-Hex 2% Top Sol 2oz TOPIC SCH (21:15)
[2019-06-02] MEDS: ALPRAZolam 0.5mg tab ORAL SCH (21:15)
[2019-06-02] MEDS: Fat Emulsion Iv 20% 192 ML in Tpn 1,368 ML IV SCH (21:16)
[2019-06-02] MEDS: Iron Sucrose 100 MG in NS 55 ML IV SCH (21:17)
--- NOTE | 2019-06-02 21:30 | NUR ---
NURSE NOTES: Pt looks sleepy and noted slow verbal response but awake and oriented. Asking for pain medication. But after taking routine oral po medication- Seroquel and Zanax, pt falls asleep. Spo2: 97% in RA. Done self-voiding. TPN is running via PICC and site is clear without hematoma or infiltration. Greenish drainage natural drained via ileostomy. Will continue to monitor pt's condition.
[2019-06-02] MEDS: D5 1/2NS w/KCl 20mEq 1,000 ML IV SCH (21:42)
[2019-06-03 00:30] VITALS: BP 103/63
--- NOTE | 2019-06-03 00:30 | NUR ---
NURSE NOTES: Pt is asleep without complaining of pain. Easily aroused by calling name. RR: 11bmp, Spo2 checked as 97% in RA. No acute distress noted. Breathing is even and non labored. Will continue to monitor.
[2019-06-03] MEDS: HYDROmorphone 1mg/ml Carpuject SUBQ PRN ×2 (03:57→11:31)
[2019-06-03 04:00] VITALS: BP 118/72
[2019-06-03] MEDS: HYDROmorphone 4mg tab ORAL PRN ×4 (05:56→17:40)
[2019-06-03] MEDS: NovoLOG Insulin Flexpen SUBQ SCH ×5 (06:00→23:43)
--- NOTE | 2019-06-03 06:00 | NUR ---
NURSE NOTES: Pt states that she has so much pain. Administer prn po medication. Will continue to monitor. Urine output: 350ml Ileostomy output: 270ml
--- NOTE | 2019-06-03 07:30 | NUR ---
HAND-OFF: Report given to DEREJE Sanon. Done rounds.
[2019-06-03 07:40] LABS: BASOPHILS % (AUTO) 0.6 % (0.0-2.0); EOSINOPHILS % (AUTO) 3.6 % (0.0-3.0); HEMATOCRIT 29.3 % (37.0-47.0); HEMOGLOBIN 9.1 G/DL (12.0-16.0); LYMPHOCYTES % (AUTO) 16.9 % (20.0-45.0); MEAN CORPUSCULAR VOLUME 72 FL (80-99); MONOCYTES % (AUTO) 9.1 % (1.0-10.0); NEUTROPHILS % (AUTO) 69.8 % (45.0-75.0); PLATELET COUNT 243 K/UL (150-450); RED BLOOD COUNT 4.07 M/UL (4.20-5.40); WHITE BLOOD COUNT 7.9 K/UL (4.8-10.8)
[2019-06-03 08:00] VITALS: BP 125/95
--- NOTE | 2019-06-03 08:00 | NUR ---
NURSE NOTES: Received report from Go RN, pt a/a/o x4 seating in bed with no signs of distress or other issues at this time however pt stated "I'm in so much pain that I am afraid to eat due to the pain". PICC line on the left arm running: D51/2 NS +20mEq@30ml/hr & TPN@65ml/hr. Ileo draining to gravity. total ileo during gis mapping technician: 217ml. total urine: 350ml. pt ambulating round the unit with steady gait. call light within reach, bed in lowest position. side rale sup x2. I will f/u as needed.
[2019-06-03 08:31] LABS: ALANINE AMINOTRANSFERASE 11 U/L (12-78); ALBUMIN 2.9 G/DL (3.4-5.0); ALBUMIN/GLOBULIN RATIO 0.8 (1.0-2.7); ALKALINE PHOSPHATASE 73 U/L (46-116); ANION GAP 7 mmol/L (5-15); ASPARTATE AMINO TRANSFERASE 18 U/L (15-37); BILIRUBIN,TOTAL 0.2 MG/DL (0.2-1.0); BLOOD UREA NITROGEN 10 mg/dL (7-18); CALCIUM 9.5 MG/DL (8.5-10.1); CARBON DIOXIDE 29 MMOL/L (21-32); CHLORIDE 103 MMOL/L (98-107); CREATININE 0.6 MG/DL (0.55-1.30); POTASSIUM 3.6 MMOL/L (3.5-5.1); SODIUM 139 MMOL/L (136-145)
[2019-06-03] MEDS ORDERED: DiphenhydrAMINE 50mg/ml Inj IVP PRN (09:00)
[2019-06-03] MEDS: DULoxetine 30mg cap ORAL SCH ×2 (09:26→17:39)
[2019-06-03] MEDS ORDERED: NS Irrig 1000ml ONE (10:42)
--- NOTE | 2019-06-03 11:17 | General Progress Note ---
Assessment/Plan Problem List: (1) Anemia ICD Codes: D64.9 - Anemia, unspecified SNOMED: 353526822 (2) Iron deficiency ICD Codes: E61.1 - Iron deficiency SNOMED: 01911713 (3) Ileostomy present ICD Codes: Z93.2 - Ileostomy status SNOMED: 583478836 (4) History of ulcerative colitis ICD Codes: Z87.19 - Personal history of other diseases of the digestive system SNOMED: 405944528 (5) Abdominal pain ICD Codes: R10.9 - Unspecified abdominal pain SNOMED: 44664788 Assessment/Plan: s/p EGD and pouchoscopy: SUMMARY OF FINDINGS: 1. GE junction at about 40 cm from the incisors without any esophagitis. 2. Gastritis, status post biopsy. 3. One polyp in the small intestine pouch, otherwise normal pouchoscopy. iv iron TPN pain control pouchogram for today fu labs fu surg recs fu path Subjective ROS Limited/Unobtainable: Yes Allergies: Coded Allergies: MORPHINE (Verified Allergy, Unknown, Shortness of Breath, 05/29/19) Uncoded Allergies: CONTRAST (Allergy, Unknown, 05/29/19) Subjective c/o abd pian poor po intake not happy with the pain management Objective Last 24 Hour Vital Signs Date Time Temp Pulse Resp B/P (MAP) Pulse Ox O2 Delivery O2 Flow Rate FiO2 06/03/19 09:00 Room Air 06/03/19 08:00 98.4 98 20 125/95 (105) 99 06/03/19 04:27 98.2 06/03/19 04:00 98.2 89 14 118/72 (87) 99 06/03/19 00:30 97.3 83 11 103/63 (76) 97 06/02/19 22:30 97 10 97/58 (71) 96 06/02/19 21:00 Room Air 06/02/19 20:45 97.9 99 14 128/83 (98) 99 06/02/19 16:00 97.7 92 19 101/67 (78) 100 06/02/19 12:00 98.9 96 19 109/78 (88) 97 06/02/19 11:40 Room Air Intake and Output 06/02/19 06/03/19 18:59 06:59 Intake Total 1712 ml 1175 ml Output Total 1420 ml 620 ml Balance 292 ml 555 ml Intake Oral 572 ml 100 ml IV Total 1140 ml 1075 ml Output Urine Total 550 ml 350 ml Other 870 ml 270 ml # Voids 3 2 Laboratory Tests 06/03/19 05:33: White Blood Count 7.9, Red Blood Count 4.07L, Hemoglobin 9.1L, Hematocrit 29.3L , Mean Corpuscular Volume 72L, Mean Corpuscular Hemoglobin 22.3L, Mean Corpuscular Hemoglobin Concent 30.9L, Red Cell Distribution Width 14.0, Platelet Count 243, Mean Platelet Volume 4.5L, Neutrophils (%) (Auto) 69.8, Lymphocytes (%) (Auto) 16.9L, Monocytes (%) (Auto) 9.1, Eosinophils (%) (Auto) 3.6H, Basophils (%) (Auto) 0.6, Sodium Level 139, Potassium Level 3.6, Chloride Level 103, Carbon Dioxide Level 29, Anion Gap 7, Blood Urea Nitrogen 10, Creatinine 0.6, Estimat Glomerular Filtration Rate > 60, Glucose Level 73L, Calcium Level 9.5, Total Bilirubin 0.2, Aspartate Amino Transf (AST/SGOT) 18, Alanine Aminotransferase (ALT/SGPT) 11L, Alkaline Phosphatase 73, Total Protein 6.4, Albumin 2.9L, Globulin 3.5, Albumin/Globulin Ratio 0.8L Height (Feet): 5 Height (Inches): 3.00 Weight (Pounds): 103 General Appearance: no apparent distress EENT: normal ENT inspection Neck: supple Cardiovascular: normal rate Respiratory/Chest: decreased breath sounds Abdomen: normal bowel sounds, non tender, soft Extremities: non-tender Franklin Davis MD Jun 03, 2019 11:17
[2019-06-03] MEDS: ALPRAZolam 0.5mg tab ORAL SCH ×2 (11:30→21:13)
[2019-06-03 12:00] VITALS: BP 144/102
[2019-06-03] MEDS ORDERED: Zolpidem 5mg tab ORAL PRN (14:58)
--- NOTE | 2019-06-03 15:12 | NUR ---
RD ASSESSMENT & RECOMMENDATIONS SEE CARE ACTIVITY FOR COMPLETE ASSESSMENT DAILY ESTIMATED NEEDS: Needs based on General/ 46.72kg 25-30 kcals/kg 5923-5015 total kcals 1-1.5 g protein/kg 47-70 g total protein 25-30 mL/kg 7065-6450 total fluid mLs NUTRITION DIAGNOSIS: Altered GI function R/T h/o UC, ileostomy as evidenced by h/o proctocolectomy together with Joy continent intestinal reservoir and right salpingo-oophorectomy, s/p multiple Joy pouch revisions, admitted w/ c/o abdominal pain and not been able to insert catheter to BCIR , pending multiple GI evaluations at this time, on TPN, now advanced to clears. CURRENT DIET: CLD PARENTERAL NUTRITION RECOMMENDATIONS: D/AA Rate: 57 IL Rate: 8 Total Rate: 65 Volume: 1560 % Dextrose: 16 % AA: 5.0 Energy (kcals/kg): 1401 Protein (g/kg protein): 68 Nonprotein KCALS: 1128 GIR (mg CHO/kg/min): 3.2 % Fat KCALS: 27 NPC: N Ratio: 103.6:1 TPN Comment: * D16% AA 5.0% @ 57ml/hr + IL 20% @ 8ml/hr -> total of 65ml/hr, all 3:1 * TPN at goal will provide 100% est kcal/prot needs -> 30kcal/1.46g prot per kg actual body wt * Maintain at goal rate with CLD ----- ADDITIONAL RECOMMENDATIONS: * Standing wt as able for accurate CBW -> weekly wt monitoring * Monitor BGs, LFTs, and lytes daily w/ TPN
[2019-06-03 16:00] VITALS: BP 138/89
--- NOTE | 2019-06-03 17:32 | General Progress Note ---
Progress Note Progress Note AVSS Still with prominent psychiatric and pain management/addiction issues Abdomen soft. Stoma small but well formed c/o pain with voiding Pouchogram tentative report - negative Imp. Abdominal pain ? etiology Plan: Review CT and pouchogram May do test of oral diet with Joy pouch catheter to continuous drainage re extent of pain (will resume her Linzess when we start oral intake) continue TPN Nolan Miller MD Jun 03, 2019 17:32
[2019-06-03] MEDS: ALPRAZolam 0.5mg tab ORAL PRN (17:41)
--- NOTE | 2019-06-03 19:50 | NUR ---
HAND-OFF: Report given to Barbie REYEZ, pt in stable condition. - RN educated patient that she is NOT allowed to change settings not to disconnect herself from the PICC line. patient verbalized understanding and stated that she won't do it again. - during my shift patient was able to ambulate around the unit several times with steady gait. Total I&O's total ileostomy: 825-80= 817ml urine: 425ml blood sugar: 99
--- NOTE | 2019-06-03 19:55 | NUR ---
NURSE NOTES: Received report from DEREJE Sanon. Patient alert, ambulating. No distress noted. Addendum: 06/04/19 at 0259 by Barbie Mares RN Day shift nurse reminded patient during rounds to call for assistance and not touch IVs or IV pumps. Patient verbalized understanding
[2019-06-03 20:00] VITALS: BP 131/85
[2019-06-03] MEDS: Dyna-Hex 2% Top Sol 2oz TOPIC SCH (20:28)
--- NOTE | 2019-06-03 20:45 | NUR ---
NURSE NOTES: Came into patient's room to give meds and noticed patient was up and had disconnected IV tubes from PICC. Addendum: 06/03/19 at 2232 by Barbie Mares RN patient was trying to clean up the blood drops. Notified charge nurse and with her assistance we cleaned up patient and attempted to flush PICC. Red port flushed well, purple port did not. Notified physician and obtained order for cathflo. All IV tubing was changed. 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 We reiterated that she cannot touch IVs or IV pump or other medical equipment. Patient verbalized understanding. Encouraged to call as needed for assistance.
[2019-06-03] MEDS: D5 1/2NS w/KCl 20mEq 1,000 ML IV SCH (21:00)
[2019-06-03] MEDS: Iron Sucrose 100 MG in NS 55 ML IV SCH (21:37)
[2019-06-03] MEDS ORDERED: Cathflo Alteplase 2mg Inj INJ SCH (22:00)
[2019-06-03] MEDS: Fat Emulsion Iv 20% 192 ML in Tpn 1,368 ML IV SCH (23:12)
[2019-06-04] VITALS: BP 102/68
--- NOTE | 2019-06-04 | Progress Note ---
DATE: 06/03/2019 ACUTE PAIN MANAGEMENT PHYSICIAN PROGRESS NOTE MEDICATIONS: Medication administration record reviewed. Medications include IV fluids with TPN, Cymbalta 60 mg b.i.d., Seroquel 100 mg at bedtime with 2 mg Xanax at bedtime, and vitamin K. P.r.n. medications include simethicone, Benadryl, Zofran, vitamin C, Xanax, Dilaudid 1 mg subcutaneously p.r.n., Dilaudid 4 mg orally p.r.n., Ambien, Benadryl, and Xanax 2 mg b.i.d. p.r.n. LABORATORY DATA: Laboratory studies from this morning, June 03, 2018, shows normal white count of 8, hematocrit 29, and platelets 243,000. Sodium 139, potassium 3.6, chloride 103, bicarb 29, BUN 10, creatinine 0.6, and glucose 73. OBJECTIVE: VITAL SIGNS: Within normal limits. Afebrile, pulse 98, respirations 20, blood pressure 125/95, and oxygen saturation 99% on room air. I had an extensive discussion with the surgeon, Dr. Miller. The patient is to undergo further radiology testing today. I saw the patient at the bedside after discussion with the nurse, Fab. Yesterday, we stopped the patient's TANK WAGON DRIVER unit. The patient's opioid dependency issues become more complicated with each passing day. Today, she discussed that she has been on Dilaudid for over 25 years. She stated that 25 years ago, she was diagnosed with ovarian and cervical cancer and was started on Dilaudid for severe pain. She had recurrent ovarian cysts causing her pain. She states that she goes on and off Dilaudid frequently. Again, this Dilaudid usage has been occurring for over 25 years. The patient appears to be displaying opioid-dependency and narcotic dependency behavior, in my opinion. At this time, we changed the Dilaudid from the intravenous route to the subcutaneous route. The patient has been requesting the intravenous route. The patient also states that her pain continues and does not dissipate. When I saw the patient at the bedside this afternoon, she appeared quite with mildly slurred speech, thoughts and ideas, which did not seem clear to me. She started having conversations about her phone garment form assembler, believing that I was helping her find her phone garment form assembler. This nursing shift alone, she has had oral Dilaudid at 9:30 a.m., this is followed at 11:30 with subcutaneous Dilaudid along with Xanax p.r.n. 2 mg a already twice a day. I did obtain phone numbers from the patient's [place] doctors including Dr. Flip Tamez along with her surgeon, Dr. Benigno Morin to possibly discuss further history regarding this patient's complicated narcotic-dependent issues. Ranjit Tillman M.D. DR: NEELA JOB#: [id number] CC:
--- NOTE | 2019-06-04 00:10 | NUR ---
NURSE NOTES: Patient very drowsy, alert but forgets where she is. Follows commands. Reoriented. Dozing off in mid-sentence.
--- NOTE | 2019-06-04 00:35 | NUR ---
NURSE NOTES: Patient was sleeping, had one episode of urine incontinence, assisted out of bed to bathroom at this time. Patient's gait is fairly steady. Voided 250 cc without difficulty. Sent specimen to lab for UA as requested. Pericare done, linen changed and assisted back to bed. Instructed to call as needed for assisstance oob. Addendum: 06/04/19 at 0140 by Barbie Mares RN Noted that patient woke up on her own, was alert and oriented now. Responded appropriately to questions. Will continue to monitor.
[2019-06-04 00:55] LABS: APPEARANCE,URINE SLIGHTLY CLOUDY; BILIRUBIN, URINE NEGATIVE (NEGATIVE); COLOR,URINE PALE YELLOW; GLUCOSE, URINE (UA) NEGATIVE (NEGATIVE); KETONES,URINE NEGATIVE (NEGATIVE); LEUKOCYTE ESTERASE ,URINE 3+ (NEGATIVE); NITRITE,URINE NEGATIVE (NEGATIVE); PH,URINE 5 (4.5-8.0); PROTEIN,URINE 1+ (NEGATIVE); UROBILINOGEN,URINE NORMAL MG/DL (0.0-1.0)
[2019-06-04 04:00] VITALS: BP 101/63
[2019-06-04] MEDS: HYDROmorphone 4mg tab ORAL PRN ×5 (05:49→20:11)
[2019-06-04] MEDS: NovoLOG Insulin Flexpen SUBQ SCH ×4 (06:00→23:22)
--- NOTE | 2019-06-04 07:12 | NUR ---
HAND-OFF: Report given to DEREJE Sanon. Addendum: 06/04/19 at 0754 by Barbie Mares RN 12 hour I&O: PO intake: 250 cc TPN: 650 cc IVF: 330 cc Venofer: 55 urine: 850 cc ileo output: 325 - 80 (flushes)= 245 cc true output TOTALS: 24 hour I&O: PO intake: 922 cc TPN: 1430 cc IVF: 690 Venofer: 55 urine: 1275 cc true ileo output: 990 cc
--- NOTE | 2019-06-04 07:38 | NUR ---
NURSE NOTES: Received report from Barbie REYEZ, pt a/a/o x4 laying in bed with no signs of distress or other issues at this time. PICC line on the left arm running D5 1/2NS+20mEq@30ml and TPN @ 65ml/hr. ileostomy in place draining to gravity, total output during night custodian:245ml. total urine:850ml. call light within reach, bed in lowest position, side rales up x2. I will f/u as needed. - per report patient had an episode of confusion. patient also was drowsiness, RN will inform MD.
[2019-06-04 08:00] VITALS: BP 106/65
[2019-06-04] MEDS: DULoxetine 30mg cap ORAL SCH ×2 (08:53→17:59)
[2019-06-04] MEDS: DiphenhydrAMINE 50mg/ml Inj IVP PRN ×2 (08:54→16:35)
--- NOTE | 2019-06-04 11:06 | GI Progress Note ---
Assessment/Plan Problems: (1) Anemia ICD Codes: D64.9 - Anemia, unspecified SNOMED: 278072737 (2) Iron deficiency ICD Codes: E61.1 - Iron deficiency SNOMED: 52943966 (3) Ileostomy present ICD Codes: Z93.2 - Ileostomy status SNOMED: 136351755 (4) History of ulcerative colitis ICD Codes: Z87.19 - Personal history of other diseases of the digestive system SNOMED: 682469079 (5) Abdominal pain ICD Codes: R10.9 - Unspecified abdominal pain SNOMED: 59380817 Status: unchanged Status Narrative Discussed with Dr. Davis. Assessment/Plan s/p EGD and pouchoscopy: SUMMARY OF FINDINGS: 1. GE junction at about 40 cm from the incisors without any esophagitis. 2. Gastritis, status post biopsy. 3. One polyp in the small intestine pouch, otherwise normal pouchoscopy. Biopsy of the antrum shows mild chronic gastritis. No H. pylori identified Biopsy of the Endopouch polyp shows small bowel mucosa with mild chronic inflammation and reactive changes. Symptomatic treatment iv iron TPN pain control fu labs fu surg recs The patient was seen and examined at bedside and all new and available data was reviewed in the patients chart. I agree with the above findings, impression and plan. (Patient seen earlier today. Signature stamp does not reflect patient encounter time.). - Franklin Davis MD Subjective Gastrointestinal/Abdominal: Reports: abdominal pain Objective Last 24 Hour Vital Signs Date Time Temp Pulse Resp B/P (MAP) Pulse Ox O2 Delivery O2 Flow Rate FiO2 06/04/19 09:00 Room Air 06/04/19 08:00 98.1 77 15 106/65 (79) 97 06/04/19 04:00 98.7 89 18 101/63 (76) 97 06/04/19 00:00 98.6 84 18 102/68 (79) 98 06/03/19 21:00 Room Air 06/03/19 20:00 98.4 94 20 131/85 (100) 98 06/03/19 18:10 98.3 06/03/19 16:00 98.3 100 20 138/89 (105) 100 06/03/19 13:43 98.2 06/03/19 12:00 98.4 104 18 144/102 (116) 100 Intake and Output 06/03/19 06/04/19 19:00 07:00 Intake Total 1907 ml 1040 ml Output Total 1170 ml 1175 ml Balance 737 ml -135 ml Intake Oral 672 ml 250 ml IV Total 1235 ml 790 ml Output Urine Total 425 ml 850 ml Other 745 ml 325 ml # Voids 3 3 Laboratory Tests Test 06/04/19 00:45 Urine Color Pale yellow Urine Appearance Slightly cloudy Urine pH 5 (4.5-8.0) Urine Specific Jbphh 1.005 (1.005-1.035) Urine Protein 1+ (NEGATIVE) H Urine Glucose (UA) Negative (NEGATIVE) Urine Ketones Negative (NEGATIVE) Urine Blood 3+ (NEGATIVE) H Urine Nitrite Negative (NEGATIVE) Urine Bilirubin Negative (NEGATIVE) Urine Urobilinogen Normal MG/DL (0.0-1.0) Urine Leukocyte Esterase 3+ (NEGATIVE) H Urine RBC 5-10 /HPF (0 - 2) H Urine WBC Tntc /HPF (0 - 2) H Urine Squamous Epithelial Cells Moderate /LPF (NONE/OCC) H Urine Bacteria Many /HPF (NONE) H Height (Feet): 5 Height (Inches): 3.00 Weight (Pounds): 103 General Appearance: WD/WN, no apparent distress, alert Cardiovascular: normal rate Respiratory/Chest: normal breath sounds, no respiratory distress Abdominal Exam: normal bowel sounds, non tender, soft, other - ileostomy Extremities: normal range of motion, non-tender Kermit Samson NP Jun 04, 2019 11:06
--- NOTE | 2019-06-04 11:09 | Diagnostic Imaging Report ---
INDICATION: Abdominal pain. Ramos Pouch continent ileostomy TECHNIQUE: Through the indwelling catheter, water-soluble contrast was administered via gravity and fluoroscopically imaged in multiple projections. COMPARISON: None FINDINGS: Total fluoroscopic time 11 seconds. Total number of fluoroscopic images obtained: 18 images. Multiple fluoroscopic images demonstrate the continent ileostomy catheter well situated within the pouch. The pouch is unremarkable. There is no evidence of extravasation of contrast material. There is reflux of contrast into small bowel which appear unremarkable. Postdrainage images are unremarkable. IMPRESSION: Normal pouchogram
[2019-06-04 12:00] VITALS: BP 115/77
--- NOTE | 2019-06-04 14:00 | NUR ---
NURSE NOTES: RN accompanied Dr. Sepulveda during her assessment. dr. Sepulveda explained to the patient that she won't be able to prescribe more pain medication such as Dilaudid or Xanax. Dr. Sepulveda also explained that she is going to start tapering out of Xanax. per Dr. Sepulveda VS were taking since pt stated complaining of pain 07/09. VS: BP: 119/79, HR: 97, spO2: 100% RA. Dr. Sepulveda explained to patient that she will let Dr. Miller know as well as Dr. Tillman, to adjust her pain medications. I will f/u as needed.
[2019-06-04] MEDS: ALPRAZolam 0.5mg tab ORAL PRN (14:19)
[2019-06-04] MEDS ORDERED: NS Irrig 1000ml ONE (14:44)
[2019-06-04] MEDS ORDERED: Tubing IV Secondary IV ONE (14:44)
--- NOTE | 2019-06-04 15:57 | General Progress Note ---
Progress Note Progress Note AVSS Additional information obtained by Dr. Tillman from the patient's pain management doctor in [place] indicates that the patient has been fabricating stories, and was never sent home with a LOG HAUL CHAIN FEEDER. She has severe psychiatric and addiction issues. Kock pouch Pouchogram Xray is normal with no evidence of proximal obstructions or inflammation. Imp. Abdominal pain likely not organic as extensive evaluation has failed to reveal any abnormalities of her GI tract including her Joy continent ileostomy r/o UTI with abnormal U/A - culture pending Plan: Await further psychiatric assessment as it is likely that no surgery is indicated or needed with this patient. After psych. follow-up will allow patient to eat and start RN supervised self-intubations of her Joy pouch, then plan discharge ? to drug rehab unit?? Nolan Miller MD Jun 04, 2019 15:57
[2019-06-04 16:00] VITALS: BP 113/78
[2019-06-04] MEDS ORDERED: Ascorbic Acid 500mg tab ORAL PRN (16:02)
--- NOTE | 2019-06-04 17:00 | NUR ---
NURSE NOTES: Per Dr. Miller to start patient in a BCIR diet with supplement with: Insure clear TID . However patient stated that Boost or ensure upsets her stomach, patient stated that she has used in the part carnation instant breakfast (cholate flavor). RN entered order and will notify Dr. Miller. I will f/u as needed.
--- NOTE | 2019-06-04 17:22 | NUR ---
BOND ANALYST NOTES CHARTS REVIEWED AND ORDERS NOTED. CM TO BE AVAILABLE FOR ANY ARISING ISSUES/CONCERNS.
--- NOTE | 2019-06-04 18:45 | NUR ---
NURSE NOTES: RN called Dr. Miller to inform that patient only voided about 30ml during my shift however RN suspect that patient could have flush the toilet. I will f/u as needed.
--- NOTE | 2019-06-04 19:25 | NUR ---
NURSE NOTES: Report taken from DEREJE Sanon. Patient is awake and in bed, A&Ox4. Fab endorsed to me the patients concerns and behavioral issues. Patient seems lethargic and asking for medications as soon as I entered the room. See MD notes to see further behavioral issues. RN able to explain to patient her medication administration for the evening. No signs of distress on room air. Having constant complaints of pain 10/, states that her pain medication does not help. Skin c/d/i. Iloe c/d/i and patent, draining to bag. DAYAMI PICC c/d/i and patent, running TPN at 65 and D51/2NS+20KCl at 30mls/hr. Patient is willing to listen and follow orders. Bed in lowest position, call light within reach.
--- NOTE | 2019-06-04 19:48 | NUR ---
HAND-OFF: Report given to Devang REYEZ. pt instable condition. - RN endorsed to incoming nurse all the issues that we are having with the pt as far as behavioral issues. - During my shift pt ambulating around the unit with steady gait. I &O's total Ileostomy: 400-56=902cu void= 30ml (left message to Dr. Miller to inform)
[2019-06-04 20:00] VITALS: BP 126/84
[2019-06-04] MEDS: Iron Sucrose 100 MG in NS 55 ML IV SCH (20:46)
[2019-06-04] MEDS: Dyna-Hex 2% Top Sol 2oz TOPIC SCH (20:46)
[2019-06-04] MEDS: Fat Emulsion Iv 20% 192 ML in Tpn 1,368 ML IV SCH (20:48)
[2019-06-04] MEDS: D5 1/2NS w/KCl 20mEq 1,000 ML IV SCH (20:48)
[2019-06-04] MEDS: ALPRAZolam 0.5mg tab ORAL SCH (20:50)
--- NOTE | 2019-06-04 23:10 | NUR ---
NURSE NOTES: Upon entering patients room, the patient was very heavily sedated. She responded to touch and call to her name. Speech was slurred and she was saying that she was in pain. BP 88/55 HR 94bpm, RR 14. Scheduled Medication was administered with time in between each. Did not give further PRN pain medication at this time.
[2019-06-05] VITALS (7 sets, daily range): BP systolic 88–130; BP diastolic 53–78
--- NOTE | 2019-06-05 03:00 | Progress Note ---
DATE: 06/04/2019 HISTORY OF PRESENT ILLNESS: Upon entering the room, the patient was dozing off. The nurse was present during the evaluation. The patient continues to have medication seeking behavior. Upon discussing the high dose of Xanax and pain medication, the patient was defensive and stated that she is in severe pain, 8/10. The nurse stated that the patient is taking pain medication every 3 hours in addition to Benadryl IV and Xanax. During the evaluation, the patient stated that she is in severe pain. I requested the nurse to do the vitals and the vitals were within normal limits. The patient stated that she has severe anxiety regarding her coping skills and concerned in regard to accidental overdose. I also expressed and educated her in regard to medication dependence. The patient stated that she has been doing this medication for the past 20 years. The patient was very circumstantial and stated that she came to [place] for surgery and she spent all her money on flight tickets and she stated that she was very disappointed that she has to return to [place] without getting any surgery. The patient denied any suicidal or homicidal ideation. The patient is not anxious, nor in pain. MENTAL STATUS EXAMINATION: The patient is alert, oriented times self, place, time, date and situation. She was cooperative with the evaluation. Her mood was neutral. Affect was full range. Congruent with mood and appropriate. Thought process was circumstantial. Thought content, no suicidal or homicidal ideation. The patient does not endorse any delusions, auditory or visual hallucinations. Memory, concentration, and attention is intact. ASSESSMENT: 1. Benzodiazepine dependence. 2. Opiate dependence. PLAN: 1. The patient was provided with reality orientation and supportive therapy. 2. The patient is not an imminent danger to self or others. 3. The patient is not meeting the criteria for 5150. 4. We will decrease the Xanax gradually. 5. Discussed the case with the nurse and medical team. Brianna Sepulveda M.D. DR: Richard JOB#: [id number] CC: DANIEL
[2019-06-05] MEDS: DiphenhydrAMINE 50mg/ml Inj IVP PRN ×5 (05:22→23:39)
[2019-06-05] MEDS: NovoLOG Insulin Flexpen SUBQ SCH ×4 (06:00→23:46)
[2019-06-05 06:44] LABS: EOSINOPHILS % (AUTO) 3.6 % (0.0-3.0); HEMATOCRIT 28.2 % (37.0-47.0); HEMOGLOBIN 8.6 G/DL (12.0-16.0); LYMPHOCYTES % (AUTO) 27.8 % (20.0-45.0); MEAN CORPUSCULAR VOLUME 73 FL (80-99); MONOCYTES % (AUTO) 11.6 % (1.0-10.0); NEUTROPHILS % (AUTO) 56.1 % (45.0-75.0); PLATELET COUNT 237 K/UL (150-450); RED BLOOD COUNT 3.86 M/UL (4.20-5.40); RED CELL DISTRIBUTION WIDTH 15.2 % (11.6-14.8); WHITE BLOOD COUNT 5.5 K/UL (4.8-10.8)
[2019-06-05 07:16] LABS: ANION GAP 5 mmol/L (5-15); BLOOD UREA NITROGEN 12 mg/dL (7-18); CALCIUM 8.9 MG/DL (8.5-10.1); CARBON DIOXIDE 31 MMOL/L (21-32); CHLORIDE 105 MMOL/L (98-107); CREATININE 0.7 MG/DL (0.55-1.30); POTASSIUM 3.6 MMOL/L (3.5-5.1); SODIUM 141 MMOL/L (136-145)
--- NOTE | 2019-06-05 08:00 | NUR ---
NURSE NOTES: Received report from Devang REYEZ, pt a/a/o x4 laying in bed with no signs of distress or other issues at this time. PICC line on the left arm running D5 1/2NS+20mEq@30ml and TPN @ 65ml/hr. Ileostomy in place draining to gravity, total output during rn night:270ml. total urine:425ml. call light within reach, bed in lowest position, side rales up x2. I will f/u as needed. - pt stated that she doesn't want to eat breakfast or anything because she is in some much pain and every time she eats her pain increases. RN notified Dr. Miller.
--- NOTE | 2019-06-05 08:08 | General Progress Note ---
Progress Note Progress Note AVSS continued intervention by Psychiatry appreciated. Patient tolerating liquids Abdomen soft Urine 425cc overnight BCIR ileo 590/24 hours Hgb 8.6 - on Venofer Mg 1.7 Albumin 2.9 Imp. Addiction and psychiatric issues Severe iron deficiency anemia malnutrition Plan; BCIR low residue diet Start BCIR intubations in AM if stable continue TPN, infuse Mg Nolan Miller MD Jun 05, 2019 08:08
[2019-06-05] MEDS: DULoxetine 30mg cap ORAL SCH ×2 (08:44→17:38)
--- NOTE | 2019-06-05 09:04 | General Progress Note ---
Assessment/Plan Problem List: (1) Anemia ICD Codes: D64.9 - Anemia, unspecified SNOMED: 206095361 (2) Iron deficiency ICD Codes: E61.1 - Iron deficiency SNOMED: 34631595 (3) Ileostomy present ICD Codes: Z93.2 - Ileostomy status SNOMED: 334777524 (4) History of ulcerative colitis ICD Codes: Z87.19 - Personal history of other diseases of the digestive system SNOMED: 145522481 (5) Abdominal pain ICD Codes: R10.9 - Unspecified abdominal pain SNOMED: 71700227 Status: unchanged Assessment/Plan: s/p EGD and pouchoscopy: SUMMARY OF FINDINGS: 1. GE junction at about 40 cm from the incisors without any esophagitis. 2. Gastritis, status post biopsy. 3. One polyp in the small intestine pouch, otherwise normal pouchoscopy. iv iron TPN pain control pouchogram reviewed fu labs fu surg recs Subjective ROS Limited/Unobtainable: Yes Allergies: Coded Allergies: MORPHINE (Verified Allergy, Unknown, Shortness of Breath, 05/29/19) Uncoded Allergies: CONTRAST (Allergy, Unknown, 05/29/19) Subjective c/o abd pian poor po intake not happy with the pain management Objective Last 24 Hour Vital Signs Date Time Temp Pulse Resp B/P (MAP) Pulse Ox O2 Delivery O2 Flow Rate FiO2 06/05/19 04:00 98.4 81 18 97/57 (70) 93 06/05/19 02:00 98.6 84 17 101/64 (76) 97 06/05/19 00:00 98.6 94 17 88/53 (65) 96 06/04/19 21:00 Room Air 06/04/19 20:00 98.4 103 19 126/84 (98) 100 06/04/19 17:05 98.1 06/04/19 16:00 98.1 109 15 113/78 (90) 98 06/04/19 12:00 98.0 99 16 115/77 (90) 98 Intake and Output 06/04/19 06/05/19 19:00 07:00 Intake Total 1485 ml 1485 ml Output Total 350 ml 695 ml Balance 1135 ml 790 ml Intake Oral 250 ml 725 ml IV Total 1235 ml 760 ml Output Urine Total 30 ml 425 ml Other 320 ml 270 ml # Voids 2 Laboratory Tests 06/05/19 05:05: White Blood Count 5.5, Red Blood Count 3.86L, Hemoglobin 8.6L, Hematocrit 28.2L , Mean Corpuscular Volume 73L, Mean Corpuscular Hemoglobin 22.4L, Mean Corpuscular Hemoglobin Concent 30.7L, Red Cell Distribution Width 15.2H, Platelet Count 237, Mean Platelet Volume 4.7L, Neutrophils (%) (Auto) 56.1, Lymphocytes (%) (Auto) 27.8, Monocytes (%) (Auto) 11.6H, Eosinophils (%) (Auto) 3.6H, Basophils (%) (Auto) 1.0, Sodium Level 141, Potassium Level 3.6, Chloride Level 105, Carbon Dioxide Level 31, Anion Gap 5, Blood Urea Nitrogen 12, Creatinine 0.7, Estimat Glomerular Filtration Rate > 60, Glucose Level 103, Calcium Level 8.9, Phosphorus Level 4.0, Magnesium Level 1.7L Height (Feet): 5 Height (Inches): 3.00 Weight (Pounds): 115 General Appearance: alert EENT: normal ENT inspection Neck: supple Cardiovascular: normal rate Respiratory/Chest: decreased breath sounds Abdomen: normal bowel sounds, non tender, soft Extremities: non-tender Franklin Davis MD Jun 05, 2019 09:04
[2019-06-05] MEDS: HYDROmorphone 4mg tab ORAL PRN ×5 (09:05→23:39)
[2019-06-05] MEDS ORDERED: NS Irrig 1000ml ONE (09:33)
--- NOTE | 2019-06-05 10:45 | NUR ---
NURSE NOTES: Received a delivery from [facility] for the patient. patient ordered candies such as M&M with peanuts, gummy bears, pop tarts. RN delivered to the patient and educated patient that she is not allowed to eat peanuts. patient stated that she is not planning to eat the food, she stated that she is going to take it to [place] once she is discharge from here. she also stated that she might eat some gummy bears but that's about it. RN called Dr. Miller to inform of the above. Dr. Miller stated that she is allowed to eat some candies in moderation. Furthermore to educate patient that candies are not a source of nutrition and if she is planning to eat a lot of them the patient might have stomach ache and/or diarrhea. RN will reinforce teaching. Gautam REYEZ CN is also aware. I will f/u as needed.
[2019-06-05] MEDS: ALPRAZolam 0.5mg tab ORAL PRN (14:17)
--- NOTE | 2019-06-05 19:00 | Progress Note ---
DATE: 06/05/2019 SUBJECTIVE: The patient is calm, cooperative. No behavior issues today; however, still endorses medication-seeking behaviors and has poor coping skills. The patient was tearful at some point during the evaluation. The patient denies suicidal or homicidal ideation. However insists to take the Dilaudid IV 2 mg every 4 hours. She does not have any anxiety or agitation upon going down on Xanax. She is now taking Xanax 1.5 as needed as well as 2 mg at night. She agreed to gradually decrease her Xanax. She has been taking this medication for the past 20 years. She denies any depressive symptoms. MENTAL STATUS EXAMINATION: Alert and oriented x4. Cooperative. Mood is dysphoric. Affect is blunted, congruent with mood. Thought process, linear and goal oriented. Thought complaint, circumstantial. Thought content, no suicidal or homicidal ideations. ASSESSMENT: 1. Polysubstance dependence. 2. PTSD. 3. Major depressive disorder. 4. Cluster B traits. PLAN: 1. The patient will be continued on Xanax p.r.n. We will continue to work with the patient gradually to decrease the dose. 2. Continue the Seroquel. 3. Continue the Cymbalta. 4. Provide the patient with reality orientation and supportive therapy. Brianna Sepulveda M.D. DR: ДМИТРИЙ JOB#: [id number] CC:
--- NOTE | 2019-06-05 19:20 | NUR ---
HAND-OFF: Report given to Devang REYEZ. pt in stable condition and signs of distress or other issues at this time. Total I&O's Total Ileo: 525-01=279ff total oral: 808ml urine: 900ml Blood Sugar: 95
--- NOTE | 2019-06-05 19:25 | NUR ---
NURSE NOTES: Report taken from DEREJE Sanon. Patient is awake and in bed, A&Ox4. Aware of behavioral history of the patient, will monitor and seperate medication as necessary. No signs of distress on room air. Having constant complaints of pain in her abdomen and radiating through her hips, 08/08. Ileo draining to gravity. DAYAMI PICC c/d/i and patent, running TPN at 6mls/hr and D51/2NS+20KCl at 30mls/hr. Skin is intact. patient has snacks at bedside, RN discussed which foods she can have. Bed in lowest position, call light within reach.
[2019-06-05] MEDS: Dyna-Hex 2% Top Sol 2oz TOPIC SCH (20:00)
[2019-06-05] MEDS: Fat Emulsion Iv 20% 192 ML in Tpn 1,368 ML IV SCH (20:53)
[2019-06-05] MEDS: D5 1/2NS w/KCl 20mEq 1,000 ML IV SCH (20:54)
[2019-06-05] MEDS: ALPRAZolam 0.5mg tab ORAL SCH (21:00)
[2019-06-06] VITALS: BP 121/79
[2019-06-06 04:00] VITALS: BP 92/59
[2019-06-06] MEDS: NovoLOG Insulin Flexpen SUBQ SCH ×4 (05:46→23:51)
[2019-06-06 05:53] LABS: HEMOGLOBIN 9.5 G/DL (12.0-16.0); LYMPHOCYTES % (AUTO) 20.3 % (20.0-45.0); MEAN CORPUSCULAR VOLUME 75 FL (80-99); NEUTROPHILS % (AUTO) 64.7 % (45.0-75.0); PLATELET COUNT 249 K/UL (150-450); RED BLOOD COUNT 4.13 M/UL (4.20-5.40); RED CELL DISTRIBUTION WIDTH 16.7 % (11.6-14.8); WHITE BLOOD COUNT 7.6 K/UL (4.8-10.8)
[2019-06-06 06:09] LABS: ANION GAP 5 mmol/L (5-15); BLOOD UREA NITROGEN 12 mg/dL (7-18); CALCIUM 8.6 MG/DL (8.5-10.1); CARBON DIOXIDE 30 MMOL/L (21-32); CHLORIDE 105 MMOL/L (98-107); CREATININE 0.7 MG/DL (0.55-1.30); POTASSIUM 3.8 MMOL/L (3.5-5.1); SODIUM 140 MMOL/L (136-145)
[2019-06-06] MEDS: HYDROmorphone 4mg tab ORAL PRN ×3 (06:58→21:21)
[2019-06-06] MEDS: DiphenhydrAMINE 50mg/ml Inj IVP PRN ×3 (06:58→22:10)
--- NOTE | 2019-06-06 07:20 | NUR ---
NURSE NOTES: Report received from Devang REYEZ, rounds made. Patient sleeping in supine position, in bed. No distress on RA. RLQ ileostomy dressing/catheter intact, no output noted in drainage bag. IVF (D5 1/2 NS +20KCL@ 30 ml/hr) and TPN (@65 ml/hr) to DAYAMI PICC, dressing CDI. Call light in reach, bed in lowest position, will continue to monitor.
--- NOTE | 2019-06-06 07:34 | NUR ---
HAND-OFF: Report given to DEREJE Richardson. Patient is awake and in bed, VS stable. Addendum: 06/06/19 at 0735 by Devang Velázquez RN Report given to DEREJE Camargo.
[2019-06-06 08:00] VITALS: BP 124/79
[2019-06-06] MEDS: DULoxetine 30mg cap ORAL SCH ×2 (09:02→18:04)
[2019-06-06] MEDS: HYDROmorphone 1mg/ml Carpuject SUBQ PRN ×3 (09:54→23:53)
[2019-06-06] MEDS: ALPRAZolam 0.5mg tab ORAL PRN (11:26)
[2019-06-06 12:00] VITALS: BP 121/70
--- NOTE | 2019-06-06 12:14 | General Progress Note ---
Assessment/Plan Problem List: (1) Anemia ICD Codes: D64.9 - Anemia, unspecified SNOMED: 918963880 (2) Iron deficiency ICD Codes: E61.1 - Iron deficiency SNOMED: 53815647 (3) Ileostomy present ICD Codes: Z93.2 - Ileostomy status SNOMED: 723546520 (4) History of ulcerative colitis ICD Codes: Z87.19 - Personal history of other diseases of the digestive system SNOMED: 468888938 (5) Abdominal pain ICD Codes: R10.9 - Unspecified abdominal pain SNOMED: 06216435 Status: unchanged Assessment/Plan: s/p EGD and pouchoscopy: SUMMARY OF FINDINGS: 1. GE junction at about 40 cm from the incisors without any esophagitis. 2. Gastritis, status post biopsy. 3. One polyp in the small intestine pouch, otherwise normal pouchoscopy. iv iron TPN pain control pouchogram reviewed fu labs fu surg recs Subjective ROS Limited/Unobtainable: Yes Allergies: Coded Allergies: MORPHINE (Verified Allergy, Unknown, Shortness of Breath, 05/29/19) Uncoded Allergies: CONTRAST (Allergy, Unknown, 05/29/19) Subjective c/o abd pian poor po intake Objective Last 24 Hour Vital Signs Date Time Temp Pulse Resp B/P (MAP) Pulse Ox O2 Delivery O2 Flow Rate FiO2 06/06/19 09:00 Room Air 06/06/19 08:00 97.9 106 20 124/79 (94) 98 06/06/19 04:00 97.5 94 20 92/59 (70) 99 06/06/19 00:00 97.3 102 18 121/79 (93) 97 06/05/19 21:00 Room Air 06/05/19 20:00 98.2 105 16 114/77 (89) 98 06/05/19 18:09 97.5 06/05/19 16:00 97.5 82 18 130/70 (90) 98 Intake and Output 06/05/19 06/06/19 19:00 07:00 Intake Total 1663 ml 1237 ml Output Total 1345 ml 595 ml Balance 318 ml 642 ml Intake Oral 808 ml 572 ml IV Total 855 ml 665 ml Output Urine Total 900 ml 500 ml Other 445 ml 95 ml # Voids 2 Laboratory Tests 06/06/19 05:00: White Blood Count 7.6, Red Blood Count 4.13L, Hemoglobin 9.5L, Hematocrit 31.0L , Mean Corpuscular Volume 75L, Mean Corpuscular Hemoglobin 23.1L, Mean Corpuscular Hemoglobin Concent 30.7L, Red Cell Distribution Width 16.7H, Platelet Count 249, Mean Platelet Volume 4.8L, Neutrophils (%) (Auto) 64.7, Lymphocytes (%) (Auto) 20.3, Monocytes (%) (Auto) 11.0H, Eosinophils (%) (Auto) 3.0, Basophils (%) (Auto) 1.0, Sodium Level 140, Potassium Level 3.8, Chloride Level 105, Carbon Dioxide Level 30, Anion Gap 5, Blood Urea Nitrogen 12, Creatinine 0.7, Estimat Glomerular Filtration Rate > 60, Glucose Level 114H, Calcium Level 8.6, Magnesium Level 2.2 Height (Feet): 5 Height (Inches): 3.00 Weight (Pounds): 115 General Appearance: alert EENT: normal ENT inspection Neck: supple Cardiovascular: normal rate Respiratory/Chest: decreased breath sounds Abdomen: normal bowel sounds, non tender, soft Extremities: non-tender Franklin Davis MD Jun 06, 2019 12:14
--- NOTE | 2019-06-06 15:45 | General Progress Note ---
Progress Note Progress Note AVSS Urine C&S reveals Klebsiella UTI sensitive to Levaquin. Tolerating po fluids but not eating solid food Abdomen soft Urine 1400 BCIR ileo 540 WBC 7600 Hgb 9.5 - on Venofer Mg 2.2 I was able to readily insert 30Fr Rebecca catheter into pouch with good output Imp. Stable Plan; RN supervised BCIR self-intubations with 30 Fr Medena or Rebecca If unable to tolerate, insert 28 or 26 Fr Morgan to continuous gravity drainage Levaquin 500mg po STAT and q24 hrs f/u labs Nolan Miller MD Jun 06, 2019 15:45
--- NOTE | 2019-06-06 15:50 | NUR ---
NURSE NOTES: Dr. Miller discontinued ileostomy catheter and drainage bag, instructed patient to self intubate and if difficulty or too painful, we will resume with FC to BCIR to drainage bag. IVF discontinued as ordered. Dr. Miller notified of urine cloudy appearance, no ileostomy output even after flushes, poor appetite and that patient had removed her ileostomy to wipe it clean and then reinsert it and applied new dressing. See new orders.
[2019-06-06] MEDS: Levofloxacin 500mg tab ORAL SCH (15:54)
[2019-06-06 16:00] VITALS: BP 119/79
--- NOTE | 2019-06-06 19:10 | NUR ---
HAND-OFF: Report given to Flora REYEZ. Outputs: Urine: 900 ml Ileostomy: -30 ml
--- NOTE | 2019-06-06 19:30 | NUR ---
NURSE NOTES: Receive a report from DEREJE Camargo. Done rounds. Self-intubation has not done since ileostomy catheter removed. Pt states that she does not need it because she does not feel fullness despite explanation of importance. TPN is running via PICC on left upper arm. Will continue to monitor.
[2019-06-06 20:00] VITALS: BP 117/88
--- NOTE | 2019-06-06 20:30 | NUR ---
NURSE NOTES: Pt asks to have an abdominal bider. Call Dr. Miller and to confirm to have one. Also update to Dr. Miller about pt's not self-intubation. Will continue to reinforce self-intubation.
--- NOTE | 2019-06-06 21:00 | NUR ---
NURSE NOTES: After self-intubation to ileostomy, drained 400ml mixed white and light green drainage without irrigation. Encourage to do 3hrs while awake and prn. Will continue to monitor.
[2019-06-06] MEDS: Fat Emulsion Iv 20% 192 ML in Tpn 1,368 ML IV SCH (21:12)
[2019-06-06] MEDS: Dyna-Hex 2% Top Sol 2oz TOPIC SCH (21:19)
[2019-06-06] MEDS: ALPRAZolam 0.5mg tab ORAL SCH (21:19)
[2019-06-07] VITALS: BP 125/71
--- NOTE | 2019-06-07 04:00 | Progress Note ---
DATE: 06/06/2019 SUBJECTIVE: The patient's mental condition is unchanged since previous encounter. The patient is weak and withdrawn. The patient opened up in regards to her severe trauma during the last severe hospitalizations she has been. She also stated that when she is taking pain medication, she is able to cope better with her other medical conditions. Also, the patient has anxiety at times. MENTAL STATUS EXAMINATION: The patient is alert and oriented x4. Cooperative. Mood is dysphoric. Affect is blunted. Congruent with mood and appropriate. Thought process is circumstantial. Thought content, no suicidal or homicidal ideation. Memory, concentration, and attention are intact. Insight and judgment are fair. ASSESSMENT: 1. Substance use disorder. 2. Posttraumatic stress disorder. 3. Major depressive disorder. PLAN: 1. We will continue Seroquel 100 mg at bedtime. 2. Cymbalta 60 mg b.i.d. 3. Continue to taper Xanax slowly. 4. Provide the patient with reality orientation and supportive therapy. Brianna Sepulveda M.D. DR: LEONORA JOB#: [id number] CC:
[2019-06-07 04:50] VITALS: BP 90/51
[2019-06-07 05:48] LABS: EOSINOPHILS % (AUTO) 3.9 % (0.0-3.0); HEMOGLOBIN 9.6 G/DL (12.0-16.0); LYMPHOCYTES % (AUTO) 21.4 % (20.0-45.0); MEAN CORPUSCULAR VOLUME 75 FL (80-99); MONOCYTES % (AUTO) 9.3 % (1.0-10.0); NEUTROPHILS % (AUTO) 64.5 % (45.0-75.0); PLATELET COUNT 231 K/UL (150-450); RED BLOOD COUNT 4.13 M/UL (4.20-5.40); RED CELL DISTRIBUTION WIDTH 17.6 % (11.6-14.8); WHITE BLOOD COUNT 6.7 K/UL (4.8-10.8)
[2019-06-07] MEDS: NovoLOG Insulin Flexpen SUBQ SCH ×3 (06:00→18:14)
--- NOTE | 2019-06-07 06:00 | NUR ---
NURSE NOTES: Pt is asleep but aroused by calling her name. Pt did self-intubation to BCIR three times overnight. Will continue to monitor. Urine output: 1000ml Ileostomy output: 550ml
[2019-06-07 06:07] LABS: ALANINE AMINOTRANSFERASE 14 U/L (12-78); ALBUMIN 2.7 G/DL (3.4-5.0); ALBUMIN/GLOBULIN RATIO 0.8 (1.0-2.7); ALKALINE PHOSPHATASE 84 U/L (46-116); ANION GAP 3 mmol/L (5-15); ASPARTATE AMINO TRANSFERASE 13 U/L (15-37); BILIRUBIN,TOTAL 0.2 MG/DL (0.2-1.0); BLOOD UREA NITROGEN 13 mg/dL (7-18); CALCIUM 8.7 MG/DL (8.5-10.1); CARBON DIOXIDE 33 MMOL/L (21-32); CHLORIDE 106 MMOL/L (98-107); CREATININE 0.7 MG/DL (0.55-1.30); POTASSIUM 3.8 MMOL/L (3.5-5.1); SODIUM 142 MMOL/L (136-145)
--- NOTE | 2019-06-07 07:07 | NUR ---
NURSE NOTES: Report received from Ginao RN, rounds made. Patient sleeping in semi-fowlers position in bed. No distress on RA. TPN infusing at 65 ml/hr, to DAYAMI PICC dressing CDI. Abdominal binder on. Call light in reach, bed in lowest position, will continue to monitor.
--- NOTE | 2019-06-07 07:30 | NUR ---
HAND-OFF: Report given to DEREJE Camargo. Round is done. Pt is still asleep. Breathing is even and non labored. Will continue to monitor.
[2019-06-07 08:00] VITALS: BP 94/56
--- NOTE | 2019-06-07 08:30 | Progress Note ---
DATE: 06/07/2019 ACUTE PAIN MANAGEMENT PHYSICIAN PROGRESS NOTE MEDICATIONS: Medication administration record reviewed. Medications include TPN, Cymbalta, Benadryl, vitamin C, Xanax, Dilaudid, Levaquin, Zofran, vitamin K, simethicone, Seroquel, and Ambien. LABORATORY DATA: Laboratory studies from this morning, June 07, 2019, shows normal white count of 7, hematocrit 31, and platelets 231,000. Sodium 142, potassium 3.8, chloride 106, bicarb 33, BUN 13, creatinine 0.7, glucose 97. Calcium 8.7. Total bilirubin 0.2, AST 13, ALT 14, and alkaline phosphatase 84. Total protein 6.2, albumin 2.7. OBJECTIVE: Vital signs within normal limits. Pulse 86, afebrile, respirations 16, oxygen saturation 97%, and blood pressure 125/71. I spent over 60 minutes in consultation over the past several days with multiple discussions with the surgeon, Dr. Nolan Miller along with psychiatrist, Dr. Sepulveda. I also spoke on the telephone with several of the patient's physicians from [place]. I spoke with a nurse practitioner from her [place] surgeon, Dr. Morin's office. I believe the nurse practitioner's name was Linh. I also spoke with Dr. Heidi Tamez, who knows the patient well and was the hospital pain doctor during the patient's multiple admissions to hospitals in [place]. Dr. Tamez also has served and has offered the patient to be her outpatient pain management doctor, and this has been corroborated by the surgeon's office. I spoke with Dr. Tamez, who stated that the patient has been recommended to follow up with him in his outpatient clinic for her multiple narcotic usage. However, the patient has been for the most part noncompliant and has not been appearing at her scheduled followup appointments. Dr. Morin's office nurse practitioner detailed much of the patient's long history to me including the patient's multiple hospital admissions along with the patient's many psychosocial complications. Additionally, Dr. Morin's nurse practitioners in the office corroborated many of the hesitations that [facility] doctors have noticed including the patient's often-varying changing history-reporting. Additionally, the [place] doctors stated that the patient had been caught in her hospital rooms using outside contraband [her own supply of] narcotic medications without the permission of her in-hospital physicians. I discussed these many details with Dr. Miller and Dr. Sepulveda, so that we could better care for the patient here in [place]. Dr. Miller has continued his diagnostic and thorough workup of the patient's digestive system. I spoke with multiple [place] nurses over the past several days. The patient continues to have intermittent episodes of oversedation. I spoke with the psychiatrist and Dr. Miller, who concurred that there may be a distinct and high possibility that the patient is using her own drugs, medications and/or narcotic medications in the hospital room. Dr. Sepulveda, the psychiatrist insisted that the patient's belongings be confiscated; however, the hospital nursing staff and security team stated they believed it was illegal for hospital to forcibly remove the patient's possessions. In this regard, I will continue to limit the hospital available narcotics, and had recommended that medication doses administered from the hospital staff are at least 60 minutes apart. The patient has been off of her Dilaudid EXPERIMENTAL BOX TESTER for over four days now. When the patient first arrived in the hospital, she was insistent that she had been prescribed a "home EXPERIMENTAL BOX TESTER unit" for use as home usage. She stated that she has been on EXPERIMENTAL BOX TESTER nonstop for 5 months. I directly asked Dr. Tamez and Dr. Morin's office in [place] if either of these 2 physicians have been prescribing home EXPERIMENTAL BOX TESTER Dilaudid unit. Both absolutely denied this claim. Here in the hospital, we will continue the patient with p.r.n. subcutaneous Dilaudid and oral Dilaudid with continued nightly Xanax & Seroquel , along with p.r.n. Xanax. The patient has been witnessed to be ambulating around the room to the restroom. Additionally, she has been documented to be sleeping for long periods of time, certainly 4 hours and 6 hours at a time especially during nighttime hours, with apparent good comfort. I would continue the current hospital's analgesic regimen while the pt remains here in the hospital. Dr. Tamez in [place] has been designated as the patient's outpatient pain management doctor by the surgeon, Dr. Morin in [place]. Dr. Tamez has certainly offered to see the patient in his outpatient clinic for narcotic adjustments and refills and evaluation as needed. Therefore, the plan for this patient will be for her to follow up with her outpatient pain doctor for followup, since her [place] doctors have been very accommodating to continue to accept her as a patient, if the patient decides to attend the appointments. Ranjit Tillman M.D. DR: LUCIANA JOB#: [id number] MTDDevi
[2019-06-07] MEDS ORDERED: Phytonadione 10 mg/mL 1ml amp SUBQ SCH (09:00)
--- NOTE | 2019-06-07 09:05 | General Progress Note ---
Progress Note Progress Note AVSS Patient not eating and taking limited po fluids Self-intubating her Joy pouch Urine 1900 BCIR ileo 610 Albumin 2`.7 Imp. Improving Plan: add lactulose TID prn thick ileo effluent continue TPN, pain management, psychiatric support Nolan Miller MD Jun 07, 2019 09:05
[2019-06-07] MEDS: HYDROmorphone 1mg/ml Carpuject SUBQ PRN ×2 (09:45→16:42)
[2019-06-07] MEDS: Levofloxacin 500mg tab ORAL SCH (09:45)
[2019-06-07] MEDS: DULoxetine 30mg cap ORAL SCH (09:45)
--- NOTE | 2019-06-07 11:11 | GI Progress Note ---
Assessment/Plan Problems: (1) Anemia ICD Codes: D64.9 - Anemia, unspecified SNOMED: 107763619 (2) Iron deficiency ICD Codes: E61.1 - Iron deficiency SNOMED: 33586187 (3) Ileostomy present ICD Codes: Z93.2 - Ileostomy status SNOMED: 133360722 (4) History of ulcerative colitis ICD Codes: Z87.19 - Personal history of other diseases of the digestive system SNOMED: 321941276 (5) Abdominal pain ICD Codes: R10.9 - Unspecified abdominal pain SNOMED: 90901793 Status: stable Status Narrative Discussed with Dr. Davis. Assessment/Plan s/p EGD and pouchoscopy: SUMMARY OF FINDINGS: 1. GE junction at about 40 cm from the incisors without any esophagitis. 2. Gastritis, status post biopsy. 3. One polyp in the small intestine pouch, otherwise normal pouchoscopy. Biopsy of the antrum shows mild chronic gastritis. No H. pylori identified Biopsy of the Endopouch polyp shows small bowel mucosa with mild chronic inflammation and reactive changes. symptomatic treatment iv iron TPN pain control fu labs fu surg recs The patient was seen and examined at bedside and all new and available data was reviewed in the patients chart. I agree with the above findings, impression and plan. (Patient seen earlier today. Signature stamp does not reflect patient encounter time.). - Franklin Davis MD Subjective Subjective self intubating Objective Last 24 Hour Vital Signs Date Time Temp Pulse Resp B/P (MAP) Pulse Ox O2 Delivery O2 Flow Rate FiO2 06/07/19 08:00 97.1 75 18 94/56 (69) 97 06/07/19 04:50 98.5 86 16 90/51 (64) 97 06/07/19 00:00 98.6 101 18 125/71 (89) 95 06/06/19 21:00 Room Air 06/06/19 20:00 98.7 110 20 117/88 (98) 95 06/06/19 16:00 98.1 110 20 119/79 (92) 95 06/06/19 12:00 98.1 72 21 121/70 (87) 97 Intake and Output 06/06/19 06/07/19 19:00 07:00 Intake Total 1411 ml 930 ml Output Total 930 ml 1550 ml Balance 481 ml -620 ml Intake Oral 296 ml 150 ml IV Total 1115 ml 780 ml Output Urine Total 900 ml 1000 ml Other 30 ml 550 ml # Voids 3 Laboratory Tests Test 06/07/19 05:02 White Blood Count 6.7 K/UL (4.8-10.8) Red Blood Count 4.13 M/UL (4.20-5.40) L Hemoglobin 9.6 G/DL (12.0-16.0) L Hematocrit 31.0 % (37.0-47.0) L Mean Corpuscular Volume 75 FL (80-99) L Mean Corpuscular Hemoglobin 23.2 PG (27.0-31.0) L Mean Corpuscular Hemoglobin Concent 30.9 G/DL (32.0-36.0) L Red Cell Distribution Width 17.6 % (11.6-14.8) H Platelet Count 231 K/UL (150-450) Mean Platelet Volume 4.7 FL (6.5-10.1) L Neutrophils (%) (Auto) 64.5 % (45.0-75.0) Lymphocytes (%) (Auto) 21.4 % (20.0-45.0) Monocytes (%) (Auto) 9.3 % (1.0-10.0) Eosinophils (%) (Auto) 3.9 % (0.0-3.0) H Basophils (%) (Auto) 1.0 % (0.0-2.0) Sodium Level 142 MMOL/L (136-145) Potassium Level 3.8 MMOL/L (3.5-5.1) Chloride Level 106 MMOL/L (98-107) Carbon Dioxide Level 33 MMOL/L (21-32) H Anion Gap 3 mmol/L (5-15) L Blood Urea Nitrogen 13 mg/dL (7-18) Creatinine 0.7 MG/DL (0.55-1.30) Estimat Glomerular Filtration Rate > 60 mL/min (>60) Glucose Level 97 MG/DL (74-106) Calcium Level 8.7 MG/DL (8.5-10.1) Total Bilirubin 0.2 MG/DL (0.2-1.0) Aspartate Amino Transf (AST/SGOT) 13 U/L (15-37) L Alanine Aminotransferase (ALT/SGPT) 14 U/L (12-78) Alkaline Phosphatase 84 U/L (46-116) Total Protein 6.2 G/DL (6.4-8.2) L Albumin 2.7 G/DL (3.4-5.0) L Globulin 3.5 g/dL Albumin/Globulin Ratio 0.8 (1.0-2.7) L Height (Feet): 5 Height (Inches): 3.00 Weight (Pounds): 115 General Appearance: WD/WN, no apparent distress, alert Cardiovascular: normal rate Respiratory/Chest: normal breath sounds, no respiratory distress Abdominal Exam: normal bowel sounds, non tender, soft Extremities: normal range of motion, non-tender Kermit Samson NP Jun 07, 2019 11:11
[2019-06-07 12:00] VITALS: BP 112/76
[2019-06-07] MEDS: DiphenhydrAMINE 50mg/ml Inj IVP PRN ×2 (12:11→21:02)
[2019-06-07] MEDS: ALPRAZolam 0.5mg tab ORAL PRN (13:16)
--- NOTE | 2019-06-07 13:35 | NUR ---
NURSE NOTES: Patient attempted to intubate via ileostomy, unsuccessful, due to resistance. Dr. Sepulveda at bedside, patient became emotional recurring past and current issues with ileostomy, Xanax given, see eMAR. Will try again later.
--- NOTE | 2019-06-07 13:43 | NUR ---
NURSE NOTES: Patient attempted to intubate once more at this time from ileostomy, successful, with 250 ml brown output. Will continue to monitor.
[2019-06-07] MEDS: HYDROmorphone 4mg tab ORAL PRN ×3 (13:57→21:27)
--- NOTE | 2019-06-07 14:15 | NUR ---
RD ASSESSMENT & RECOMMENDATIONS SEE CARE ACTIVITY FOR COMPLETE ASSESSMENT DAILY ESTIMATED NEEDS: Needs based on General/ 46.72kg 25-30 kcals/kg 3314-0415 total kcals 1-1.5 g protein/kg 47-70 g total protein 25-30 mL/kg 7743-4660 total fluid mLs NUTRITION DIAGNOSIS: Altered GI function R/T h/o UC, ileostomy as evidenced by h/o proctocolectomy together with Joy continent intestinal reservoir and right salpingo-oophorectomy, s/p multiple Joy pouch revisions, admitted w/ c/o abdominal pain and not been able to insert catheter to BCIR , pending multiple GI evaluations at this time, on TPN, now advanced to BCIR low fiber low residue diet. CURRENT DIET:BCIR PARENTERAL NUTRITION RECOMMENDATIONS: D/AA Rate: 57 IL Rate: 8 Total Rate: 65 Volume: 1560 % Dextrose: 16 % AA: 5.0 Energy (kcals/kg): 1401 Protein (g/kg protein): 68 Nonprotein KCALS: 1128 GIR (mg CHO/kg/min): 3.2 % Fat KCALS: 27 NCP: N Ratio: 103.6:1 TPN Comment: * D16% AA 5.0% @ 57ml/hr + IL 20% @ 8ml/hr -> total of 65ml/hr, all 3:1 * TPN at goal will provide 100% est kcal/prot needs -> 30kcal/1.46g prot per kg actual body wt * Maintain at goal rate with CLD ADDITIONAL RECOMMENDATIONS: * Standing wt as able for accurate CBW -> weekly wt monitoring * Monitor BGs, LFTs, and lytes daily w/ TPN
[2019-06-07] MEDS ORDERED: NS Irrig 1000ml ONE (14:50)
--- NOTE | 2019-06-07 15:14 | NUR ---
SOFTWARE PROJECT ENGINEERSECOND SHIFT SUPERVISOR SI: POD #7 T. 97.1 HR 75 RR 18 B/P 90/51 CO2 33 IS: CYMBALTA PO TPN IV LEVAQUIN PO SEROQUEL PO DILAUDID MED/SURG STATUS
[2019-06-07 16:00] VITALS: BP 120/63
--- NOTE | 2019-06-07 17:30 | NUR ---
NURSE NOTES: Patient states it is very painful to access her ileostomy when she intubates. Patient requesting to have her Dilaudid PO changed to IV, and her Xanax PO changed to Ativan IV. Dr. Tillman called, detailed voicemail left with call back number, awaiting call back.
--- NOTE | 2019-06-07 19:50 | NUR ---
HAND-OFF: Report given to Abhi REYEZ. Endorsed that Dr. Tillman returned my call at [phone] regarding patient's request for changes in pain medication due to severe pain when trying to access her ileosotmy to intubate, no new orders or changes in medications.
[2019-06-07 20:00] VITALS: BP 121/86
--- NOTE | 2019-06-07 20:13 | NUR ---
NURSE NOTES: Pt is in room ambulating. Pt is awake and alert. No acute distress noted. TPN running at 65ml/hr. Pt is self intubating. Pt's intake and output will be strictly recorded. Bed locked low in position,side rails up and call light within reach.
[2019-06-07] MEDS: ALPRAZolam 0.5mg tab ORAL SCH (21:01)
[2019-06-07] MEDS: Dyna-Hex 2% Top Sol 2oz TOPIC SCH (21:02)
[2019-06-07] MEDS: Lactulose 20gm/30ml UDC ORAL PRN (21:02)
[2019-06-07] MEDS: Fat Emulsion Iv 20% 192 ML in Tpn 1,368 ML IV SCH (21:14)
--- NOTE | 2019-06-07 22:00 | NUR ---
NURSE NOTES: Pt refuses to self-intubate the ileostomy sating " I only intubate twice a day normally" pt was explained about the need for the intubations. Pt refuses despite encouragement and education. Pt also refused the ileostomy flushes.
[2019-06-08] VITALS: BP 98/81
--- NOTE | 2019-06-08 00:30 | Progress Note ---
DATE: 06/07/2019 SUBJECTIVE: The patient stated that she is not able to self-intubate . The patient insists that she is " ." The patient . She continues to have medication-seeking behaviors asking for IV Dilaudid and IV Ativan versus Xanax and subcutaneous Dilaudid. MENTAL STATUS EXAMINATION: The patient is alert, oriented times self, place, situation, and date. Mood is neutral. Affect is full range, congruent with mood. Thought process is circumstantial. Thought content, no suicidal or homicidal ideation. No delusions. No AVH. Cognition is intact. Insight and judgment is fair. ASSESSMENT: PTSD, major depressive disorder, polysubstance dependence. PLAN: 1. The patient will be continued on Xanax. 2. We asked them to go down on the dosage. 3. Continue Ativan p.r.n. 4. Continue the Cymbalta. 5. Continue the Seroquel. 6. Provide the patient with reality orientation and supportive therapy. Brianna Sepulveda M.D. DR: ДМИТРИЙ JOB#: [id number] CC:
--- NOTE | 2019-06-08 01:00 | NUR ---
NURSE NOTES: Pt is in bed, asleep. No acute distress noted.
[2019-06-08 04:00] VITALS: BP 111/73
[2019-06-08] MEDS: NovoLOG Insulin Flexpen SUBQ SCH ×4 (06:00→18:33)
[2019-06-08 06:12] LABS: BASOPHILS % (AUTO) 1.1 % (0.0-2.0); EOSINOPHILS % (AUTO) 2.6 % (0.0-3.0); HEMATOCRIT 35.1 % (37.0-47.0); HEMOGLOBIN 10.5 G/DL (12.0-16.0); LYMPHOCYTES % (AUTO) 19.9 % (20.0-45.0); MEAN CORPUSCULAR VOLUME 76 FL (80-99); MONOCYTES % (AUTO) 10.6 % (1.0-10.0); NEUTROPHILS % (AUTO) 65.9 % (45.0-75.0); PLATELET COUNT 254 K/UL (150-450); RED BLOOD COUNT 4.62 M/UL (4.20-5.40); RED CELL DISTRIBUTION WIDTH 18.3 % (11.6-14.8); WHITE BLOOD COUNT 6.6 K/UL (4.8-10.8)
[2019-06-08 06:38] LABS: ANION GAP 6 mmol/L (5-15); BLOOD UREA NITROGEN 12 mg/dL (7-18); CALCIUM 9.2 MG/DL (8.5-10.1); CARBON DIOXIDE 30 MMOL/L (21-32); CHLORIDE 105 MMOL/L (98-107); CREATININE 0.7 MG/DL (0.55-1.30); SODIUM 141 MMOL/L (136-145)
[2019-06-08] MEDS: HYDROmorphone 4mg tab ORAL PRN ×4 (06:45→21:28)
--- NOTE | 2019-06-08 06:45 | NUR ---
NURSE NOTES: Pt self-intubated 550ml stool from ileostomy.
[2019-06-08] MEDS: DiphenhydrAMINE 50mg/ml Inj IVP PRN ×3 (06:46→21:29)
--- NOTE | 2019-06-08 07:20 | NUR ---
HAND-OFF: Report given to DEREJE Florez.
--- NOTE | 2019-06-08 07:25 | NUR ---
NURSE NOTES: Patient lying in bed awake. Complain of pain 9/10 on abdomen area and pain medication given by shift boss nurse. Will continue to monitor. Skin intact and dry. PICC line dressing intact and dry. TPN on going as ordered. Bed lowest position. Call light within reach. Will continue to monitor.
--- NOTE | 2019-06-08 07:45 | Progress Note ---
DATE: 06/08/2019 ACUTE PAIN MANAGEMENT PHYSICIAN PROGRESS NOTE MEDICATIONS: Medication administration record reviewed. Medications include Ambien, Mylicon, Seroquel, vitamin K, Zofran, Levaquin, lactulose, Dilaudid, TPN, Cymbalta, Benadryl, vitamin C, and Xanax. LABORATORY DATA: Laboratory studies from this morning, June 08, 2019, shows white count 7, hematocrit 35, and platelets 254,000. Basic metabolic panel is pending. OBJECTIVE: Vital signs within normal limits. Afebrile. Pulse 88, respirations 18, and blood pressure 111/73. Oxygen saturation 98% on room air. I discussed with the psychiatrist, Dr. Sepulveda, once again saw the patient yesterday. The patient has been refusing to self-intubate and continues to display medication-seeking behaviors asking for intravenous Dilaudid and intravenous Ativan versus the oral Xanax, subcutaneous Dilaudid. Psychiatrist, Dr. Sepulveda recommended to decrease the dosage of the narcotics. The patient will continue on Xanax along with p.r.n. Ativan. She will continue on her Cymbalta and Seroquel. Dr. Sepulveda recommended "provide the patient with reality orientation and supportive therapy." Dr. Miller saw the patient earlier yesterday morning and recommended to continue TPN, add lactulose three times a day p.r.n. for thick ileal effluent. Dr. Miller recommended psychiatric support. The patient has been sleeping soundly from 10 p.m. for at least six hours after her 10 p.m. dose of Seroquel and Xanax. I have documented in detail previous relations about her history of polysubstance abuse and narcotic-seeking behavior, in combination with repeated episodes of "changing her history, story." At this point, I must defer to Dr. Sepulveda for the patient's psychiatric needs. The patient has outpatient pain management available with Dr. Tamez in [place] if the patient choses to follow up with Dr. Tamez. I had a very small supply of Dilaudid 4 mg tablets, quantity of 20, to bridge the patient from when she leaves the hospital, [facility], whenever she decides to follow up for her outpatient narcotics. I will defer discharge planning to Dr. Miller and Dr. Sepulveda. Ranjit Tillman M.D. DR: MARTINEZ/JUANITO JOB#: [id number] CC:
[2019-06-08 08:00] VITALS: BP 125/84
[2019-06-08] MEDS: Levofloxacin 500mg tab ORAL SCH (09:02)
--- NOTE | 2019-06-08 11:24 | General Progress Note ---
Progress Note Progress Note AVSS Patient states not too hungry. Self-intubating her Joy pouch but states it is hard at times and painful labs noted states needs to change her pain regimen - I explained this discussion needs to be had with pain management MD Imp. Improving Plan: d/c lactulose as patient declines to take it. try prune juice continue TPN, pain management, psychiatric support. appreciate assistance and input Isauro Cantrell Jun 08, 2019 11:24
[2019-06-08 12:00] VITALS: BP 107/73
[2019-06-08] MEDS: ALPRAZolam 0.5mg tab ORAL PRN (12:16)
--- NOTE | 2019-06-08 15:05 | NUR ---
NURSE NOTES: Patient complained that Dilaudid pill and Xanax not absorbing and go out through ileostomy and wants to change medications to IVP. Spoke to regarding patient and no new order received. Per : spoke to and will not make any change with medications at this point.
[2019-06-08 16:00] VITALS: BP 98/69
--- NOTE | 2019-06-08 19:30 | NUR ---
HAND-OFF: Report given to Abhi RN. Patient in stable condition.
--- NOTE | 2019-06-08 19:35 | NUR ---
NURSE NOTES: Pt is in room ambulating. Pt is awake and alert. No acute distress noted. TPN running at 65ml/hr. Pt is self intubating. Pt's intake and output will be strictly recorded. Bed locked low in position,side rails up and call light within reach. Pt will be monitored.
[2019-06-08 20:00] VITALS: BP 109/75
[2019-06-08] MEDS: Zolpidem 5mg tab ORAL PRN (21:28)
[2019-06-08] MEDS: Dyna-Hex 2% Top Sol 2oz TOPIC SCH (21:29)
[2019-06-08] MEDS: ALPRAZolam 0.5mg tab ORAL SCH (21:29)
[2019-06-08] MEDS: Fat Emulsion Iv 20% 192 ML in Tpn 1,368 ML IV SCH (21:44)
[2019-06-09] VITALS (7 sets, daily range): BP systolic 98–120; BP diastolic 56–91
--- NOTE | 2019-06-09 04:34 | NUR ---
NURSE NOTES: Pt is in bed, asleep. TPN running at 65ml/hr via PICC line, both lumen patent. Pt self-intubates ileostomy pouch.
[2019-06-09] MEDS: NovoLOG Insulin Flexpen SUBQ SCH ×5 (06:00→20:54)
[2019-06-09] MEDS: DiphenhydrAMINE 50mg/ml Inj IVP PRN ×3 (06:43→20:52)
[2019-06-09] MEDS: ALPRAZolam 0.5mg tab ORAL PRN (06:43)
--- NOTE | 2019-06-09 07:15 | NUR ---
HAND-OFF: Report given to Gautam Cooley RN.
--- NOTE | 2019-06-09 07:20 | NUR ---
NURSE NOTES: Patient lying in bed awake. Complain of pain 8/10 on abdomen area. Will administer pain medication as ordered. Skin intact and dry. Ileostomy dressing intact and dry. PICC line dressing intact and dry. TPN on going as ordered. Bed lowest position. Call light within reach. Will continue to monitor.
[2019-06-09 08:12] LABS: BASOPHILS % (AUTO) 1.3 % (0.0-2.0); EOSINOPHILS % (AUTO) 3.8 % (0.0-3.0); HEMATOCRIT 33.5 % (37.0-47.0); HEMOGLOBIN 10.3 G/DL (12.0-16.0); LYMPHOCYTES % (AUTO) 35.6 % (20.0-45.0); MEAN CORPUSCULAR VOLUME 77 FL (80-99); MONOCYTES % (AUTO) 6.8 % (1.0-10.0); NEUTROPHILS % (AUTO) 52.5 % (45.0-75.0); PLATELET COUNT 244 K/UL (150-450); RED BLOOD COUNT 4.35 M/UL (4.20-5.40); RED CELL DISTRIBUTION WIDTH 18.4 % (11.6-14.8); WHITE BLOOD COUNT 4.8 K/UL (4.8-10.8)
[2019-06-09] MEDS: Levofloxacin 500mg tab ORAL SCH (08:21)
[2019-06-09 08:22] LABS: ALANINE AMINOTRANSFERASE 18 U/L (12-78); ALBUMIN/GLOBULIN RATIO 0.7 (1.0-2.7); ALKALINE PHOSPHATASE 82 U/L (46-116); AMYLASE 78 U/L (25-115); ANION GAP 5 mmol/L (5-15); ASPARTATE AMINO TRANSFERASE 17 U/L (15-37); BILIRUBIN,TOTAL 0.2 MG/DL (0.2-1.0); BLOOD UREA NITROGEN 7 mg/dL (7-18); CALCIUM 9.1 MG/DL (8.5-10.1); CARBON DIOXIDE 31 MMOL/L (21-32); CHLORIDE 103 MMOL/L (98-107); CREATININE 0.7 MG/DL (0.55-1.30); POTASSIUM 3.4 MMOL/L (3.5-5.1); SODIUM 139 MMOL/L (136-145)
[2019-06-09] MEDS: HYDROmorphone 4mg tab ORAL PRN ×4 (08:22→23:05)
[2019-06-09 08:24] LABS: INR 0.9 (0.9-1.1)
--- NOTE | 2019-06-09 09:24 | NUR ---
CHARGE NURSE NOTE: K3.4. notified.
--- NOTE | 2019-06-09 12:38 | General Progress Note ---
Progress Note Progress Note AVSS Patient seen and examined with Dr. Tillman and Nurse today. no n/v/f/c Self-intubating her Joy pouch but states it is hard at times and painful labs noted We had a clear discussion about her pain management as a team tolerating diet Imp. Improving Plan: diet as tolerated continue TPN, pain management, psychiatric support. appreciate assistance and input may consider d/c TPN soon AM labs Isauro Cantrell Jun 09, 2019 12:38
--- NOTE | 2019-06-09 14:50 | Cardiology Report ---
APPROVED REPORT EKG Measurement Heart [id number] FL 130P69 [id number] Normal sinus rhythm Prolonged QT Abnormal ECG
--- NOTE | 2019-06-09 16:45 | Progress Note ---
DATE: 06/09/2019 ACUTE PAIN MANAGEMENT PHYSICIAN PROGRESS NOTE MEDICATIONS: Medication administration record reviewed. Medications include Xanax, vitamin C, Benadryl, Cymbalta, Levaquin, Zofran, vitamin K, potassium, Seroquel, Mylicon, and Ambien. OBJECTIVE: VITAL SIGNS: Afebrile, pulse 102, respirations 18, and blood pressure 116/91. Oxygen saturation 93% on room air. LABORATORY DATA: Laboratory studies from today, June 09, 2019, shows white count 5, hematocrit 34, and platelets 244,000. Sodium 139, potassium 3.4, chloride 103, bicarb 31, BUN 7, and creatinine 0.7. Glucose 105. Calcium 9.1. Total bilirubin 0.2, AST 17, ALT 18, and alkaline phosphatase 82. Total protein 7.2, albumin 3.0. Amylase 78, lipase elevated at 716. I saw the patient at bedside with the surgeon, Dr. Cantrell and the nurse, DEREJE Florez. Dr. Cantrell suspects he saw the patient using her own contraband medication yesterday, I directly asked the patient if she has her own narcotic supply in the room, and/or is using such the patient denied emphatically. This patient does have a history, per her [place] physicians, of being caught during previous office or hospital admissions of using and being in possession of her own home narcotics against hospital policies. The patient manipulatively tried to ask Dr. Cantrell and myself to change her subcutaneous Dilaudid to the intravenous route. The patient is stating that she is removing whole pills of Dilaudid from her ileostomy pouch that they are not being absorbed. Dr. Cantrell had an excellent suggestion of having the nurse crush the pills into powder to possibly improve absorption. I concurred that this was a idea, and even suggested usage for her Xanax. The patient has been asking for IV Ativan rather than her oral Xanax. Once again transitions to parenteral narcotics was denied by me, and concurred by Dr. Cantrell. Psychiatrist, Dr. Sepulveda, continues to evaluate the patient p.r.n. The patient has been able to self-intubate her ileal conduit. Hopefully, this makes hospital discharge soon-approaching. I have left a small quantity prescription of oral Dilaudid 4 mg pills for her transition out of the hospital back to [place], the patient states that she is already scheduled appointment with her outpatient pain doctor, Heidi Tamez, who I spoke with last week, who stated he is happy to see the patient in the outpatient clinic. I confronted the patient that Dr. Tamez stated that the patient has been noncompliant appearing for her outpatient pain clinic evaluations, appointments with Dr. Tamez. The patient states that she will attend. Ranjit Tillman M.D. DR: LUCIANA JOB#: [id number] CC:
[2019-06-09] MEDS: Lactulose 20gm/30ml UDC ORAL PRN (18:11)
--- NOTE | 2019-06-09 19:40 | NUR ---
HAND-OFF: Report given to Josesito REYEZ. Patient in stable condition.
--- NOTE | 2019-06-09 19:59 | NUR ---
NURSE NOTES: Patient in bed awake and oriented. VSS. No SOB noted. Dressing is clean and intact. PICC line flushed. Reminded patient to call RN during self intubation for supervision. Needs attended. Call light within reach. In stable condition.
[2019-06-09] MEDS: ALPRAZolam 0.5mg tab ORAL SCH (20:52)
[2019-06-09] MEDS: Fat Emulsion Iv 20% 192 ML in Tpn 1,368 ML IV SCH (20:54)
[2019-06-09] MEDS: Dyna-Hex 2% Top Sol 2oz TOPIC SCH (21:25)
[2019-06-09] MEDS: Zolpidem 5mg tab ORAL PRN (21:54)
[2019-06-10] VITALS: BP 113/81
[2019-06-10] MEDS: NovoLOG Insulin Flexpen SUBQ SCH ×5 (00:49→23:34)
[2019-06-10] MEDS ORDERED: Zolpidem 5mg tab ORAL PRN (01:45)
--- NOTE | 2019-06-10 02:15 | Progress Note ---
DATE: 06/10/2019 ACUTE PAIN MANAGEMENT PHYSICIAN PROGRESS NOTE. MEDICATIONS: Medication administration record reviewed. Medications include b.i.d. Cymbalta, Levaquin, Seroquel, Xanax, simethicone, Benadryl, TPN, Zofran, Xanax, Dilaudid 1 mg subcutaneous and 4 mg oral, Ambien, lactulose. LABORATORY AND DIAGNOSTIC DATA: Laboratory studies, in the medical record. VITAL SIGNS: Within normal limits. Afebrile, pulse 89, respirations 18, blood pressure 113/81, oxygen saturation 100% on room air. Dr. Oleary's progress note was reviewed after our group bedside discussion yesterday. The patient is tolerating a diet. I did leave a prescription for 20 tablets of Dilaudid for the for outpatient usage. I will defer any mood stabilizing agent and benzodiazepine prescriptions to , psychiatrist. Ranjit Tillman M.D. DR: Bernardo JOB#: [id number] CC:
[2019-06-10] MEDS ORDERED: HYDROmorphone 1mg/ml Carpuject SUBQ PRN (02:57)
[2019-06-10 04:00] VITALS: BP 98/74
[2019-06-10] MEDS: HYDROmorphone 4mg tab ORAL PRN ×5 (04:23→23:35)
[2019-06-10] MEDS: DiphenhydrAMINE 50mg/ml Inj IVP PRN ×3 (04:23→21:15)
[2019-06-10] MEDS: ALPRAZolam 0.5mg tab ORAL PRN ×2 (06:34→12:04)
[2019-06-10 06:44] LABS: BASOPHILS % (AUTO) 1.6 % (0.0-2.0); EOSINOPHILS % (AUTO) 4.1 % (0.0-3.0); HEMATOCRIT 31.1 % (37.0-47.0); HEMOGLOBIN 9.8 G/DL (12.0-16.0); LYMPHOCYTES % (AUTO) 33.6 % (20.0-45.0); MEAN CORPUSCULAR VOLUME 76 FL (80-99); MONOCYTES % (AUTO) 6.7 % (1.0-10.0); NEUTROPHILS % (AUTO) 53.9 % (45.0-75.0); PLATELET COUNT 268 K/UL (150-450); RED BLOOD COUNT 4.07 M/UL (4.20-5.40); RED CELL DISTRIBUTION WIDTH 18.3 % (11.6-14.8); WHITE BLOOD COUNT 5.9 K/UL (4.8-10.8)
[2019-06-10 06:51] LABS: ANION GAP 3 mmol/L (5-15); BLOOD UREA NITROGEN 11 mg/dL (7-18); CALCIUM 8.5 MG/DL (8.5-10.1); CARBON DIOXIDE 32 MMOL/L (21-32); CHLORIDE 104 MMOL/L (98-107); CREATININE 0.7 MG/DL (0.55-1.30); POTASSIUM 3.4 MMOL/L (3.5-5.1); SODIUM 139 MMOL/L (136-145)
[2019-06-10 08:00] VITALS: BP 140/95
--- NOTE | 2019-06-10 08:00 | NUR ---
NURSE NOTES: Received report Josesito Melton pt a/a/o/drowsy, pt laying in bed with no signs of distress or other issues however she still complaining of pain. pt start self intubating. total ileo output: 800ml. RN encouraged patient to eat however pt stated that every time she eats her abd pain exacerbates. PICC line in place on the left upper arm running TPN@65ml/hr. call light within reach. bed in lowest position. side rales up x2. I will f/u as needed.
[2019-06-10] MEDS: Levofloxacin 500mg tab ORAL SCH (08:50)
[2019-06-10] MEDS: Lactulose 20gm/30ml UDC ORAL PRN ×3 (08:57→22:32)
[2019-06-10] MEDS: Docusate 100mg tablet ORAL SCH ×3 (08:58→17:32)
--- NOTE | 2019-06-10 09:00 | NUR ---
NURSE NOTES: Patient REFUSED 0900 self intubation. patient stated that her regular regimen at home in only 3x per day. nevertheless RN reinforced that per protocol we need to intubate 3-4hrs. patient stated that she will call me when she is ready. RN will inform MD.
--- NOTE | 2019-06-10 10:33 | GI Progress Note ---
Assessment/Plan Problems: (1) Anemia ICD Codes: D64.9 - Anemia, unspecified SNOMED: 998282128 (2) Iron deficiency ICD Codes: E61.1 - Iron deficiency SNOMED: 60434190 (3) Ileostomy present ICD Codes: Z93.2 - Ileostomy status SNOMED: 858487736 (4) History of ulcerative colitis ICD Codes: Z87.19 - Personal history of other diseases of the digestive system SNOMED: 336875060 (5) Abdominal pain ICD Codes: R10.9 - Unspecified abdominal pain SNOMED: 85439308 Status: unchanged Status Narrative Discussed with Dr. Davis. Assessment/Plan s/p EGD and pouchoscopy: SUMMARY OF FINDINGS: 1. GE junction at about 40 cm from the incisors without any esophagitis. 2. Gastritis, status post biopsy. 3. One polyp in the small intestine pouch, otherwise normal pouchoscopy. Biopsy of the antrum shows mild chronic gastritis. No H. pylori identified Biopsy of the Endopouch polyp shows small bowel mucosa with mild chronic inflammation and reactive changes. symptomatic treatment tolerating diet iv iron TPN pain control fu surg recs The patient was seen and examined at bedside and all new and available data was reviewed in the patients chart. I agree with the above findings, impression and plan. (Patient seen earlier today. Signature stamp does not reflect patient encounter time.). - Franklin Davis MD Subjective Gastrointestinal/Abdominal: Reports: no symptoms Subjective self intubating Objective Last 24 Hour Vital Signs Date Time Temp Pulse Resp B/P (MAP) Pulse Ox O2 Delivery O2 Flow Rate FiO2 06/10/19 08:00 97.5 93 20 140/95 (110) 96 06/10/19 04:00 97.8 90 18 98/74 (82) 99 06/10/19 00:00 98.9 89 18 113/81 (92) 100 06/09/19 22:18 Room Air 06/09/19 20:00 98.6 97 18 118/69 (85) 99 06/09/19 16:00 98.4 90 18 114/68 (83) 98 06/09/19 12:00 98.5 98 16 115/76 (89) 97 Intake and Output 06/09/19 06/10/19 19:00 07:00 Intake Total 1309 ml 920 ml Output Total 1370 ml 1200 ml Balance -61 ml -280 ml Intake Oral 464 ml 400 ml IV Total 845 ml 520 ml Output Urine Total 520 ml 400 ml Other 850 ml 800 ml # Voids 2 2 Laboratory Tests Test 06/10/19 05:10 White Blood Count 5.9 K/UL (4.8-10.8) Red Blood Count 4.07 M/UL (4.20-5.40) L Hemoglobin 9.8 G/DL (12.0-16.0) L Hematocrit 31.1 % (37.0-47.0) L Mean Corpuscular Volume 76 FL (80-99) L Mean Corpuscular Hemoglobin 24.0 PG (27.0-31.0) L Mean Corpuscular Hemoglobin Concent 31.4 G/DL (32.0-36.0) L Red Cell Distribution Width 18.3 % (11.6-14.8) H Platelet Count 268 K/UL (150-450) Mean Platelet Volume 5.0 FL (6.5-10.1) L Neutrophils (%) (Auto) 53.9 % (45.0-75.0) Lymphocytes (%) (Auto) 33.6 % (20.0-45.0) Monocytes (%) (Auto) 6.7 % (1.0-10.0) Eosinophils (%) (Auto) 4.1 % (0.0-3.0) H Basophils (%) (Auto) 1.6 % (0.0-2.0) Sodium Level 139 MMOL/L (136-145) Potassium Level 3.4 MMOL/L (3.5-5.1) L Chloride Level 104 MMOL/L (98-107) Carbon Dioxide Level 32 MMOL/L (21-32) Anion Gap 3 mmol/L (5-15) L Blood Urea Nitrogen 11 mg/dL (7-18) Creatinine 0.7 MG/DL (0.55-1.30) Estimat Glomerular Filtration Rate > 60 mL/min (>60) Glucose Level 112 MG/DL (74-106) H Calcium Level 8.5 MG/DL (8.5-10.1) Height (Feet): 5 Height (Inches): 3.00 Weight (Pounds): 115 General Appearance: WD/WN, no apparent distress, alert Cardiovascular: normal rate Respiratory/Chest: normal breath sounds, no respiratory distress Abdominal Exam: normal bowel sounds, non tender, soft, other - ileostomy Extremities: normal range of motion, non-tender Kermit Samson NP Jun 10, 2019 10:33
[2019-06-10 12:00] VITALS: BP 110/74
--- NOTE | 2019-06-10 14:50 | NUR ---
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
[2019-06-10 16:00] VITALS: BP 101/67
--- NOTE | 2019-06-10 16:13 | General Progress Note ---
Progress Note Progress Note AVSS. Able to eat some of BCIR low residue diet. Able to self-intubate her BCIR pouch with 24 hour output 1650cc Abdomen soft Albumin up 3.0 Slightly elevated lipase Imp. Improving Plan: Hopefully will avoid surgery which would likely involve resection of her Joy pouch and creation of a conventional ileostomy which she wishes to avoid Intubate with 30Fr Rebecca catheter - may be less difficult than with Medena catheter Hopefully can d/c TPN and plan discharge in 24-48 hours Nolan Miller MD Jun 10, 2019 16:13
--- NOTE | 2019-06-10 19:48 | NUR ---
HAND-OFF: Report given to Josesito Melton pt in stable condition. total I&O's total ileostomy output: 1950ml total urine output: 600ml total oral intake: 1180ml
[2019-06-10 20:00] VITALS: BP 104/72
--- NOTE | 2019-06-10 20:00 | NUR ---
NURSE NOTES: Received handoff report from the AM RN. Patient c/o abdominal pain 6/10, medication administered according to eMAR. Ileostomy stoma is red, moist and no s/s of infection. Patient self intubated and drained 700ml of brown liquid stool. Patient has stable vital signs, resting comfortably in bed.
[2019-06-10] MEDS: Dyna-Hex 2% Top Sol 2oz TOPIC SCH (20:15)
[2019-06-10] MEDS: Fat Emulsion Iv 20% 192 ML in Tpn 1,368 ML IV SCH (20:19)
[2019-06-10] MEDS ORDERED: ALPRAZolam 0.5mg tab ORAL SCH (21:00)
--- NOTE | 2019-06-10 21:15 | Progress Note ---
DATE: 06/10/2019 SUBJECTIVE: The patient was calm, in no acute distress. Still complaining of pain 06/08. The patient is standing without any anxiety nor any sign of pain in her affect. The patient is asking for IV Dilaudid as well as IV Ativan. The lorazepam IV is discontinued. The patient's Xanax has been decreased, we will also decrease to 1 mg b.i.d. p.r.n. MENTAL STATUS EXAMINATION: The patient is alert and oriented times self, place, situation, and date. Mood is neutral. Affect is full range, congruent with mood. Thought process is linear and goal oriented. Thought content, no suicidal or homicidal ideations. Cognition is intact. Insight and judgment is fair. ASSESSMENT: 1. PTSD by history. 2. Major depressive disorder. 3. Anxiety disorder. 4. Polysubstance dependence. PLAN: 1. We will taper down the Xanax to 1 mg p.o. b.i.d. and 2 mg at bedtime. 2. Continue the Cymbalta 60 mg b.i.d. 3. Seroquel 100 mg at bedtime. 4. Provide the patient with reality orientation and supportive therapy. Brianna Sepulveda M.D. DR: BILLY JOB#: [id number] CC:
[2019-06-10] MEDS: Simethicone 80mg tab ORAL PRN (22:32)
[2019-06-11] VITALS: BP 96/65
[2019-06-11] MEDS ORDERED: ALPRAZolam 0.5mg tab ORAL PRN (00:01)
[2019-06-11] MEDS ORDERED: Zolpidem 5mg tab ORAL PRN (00:45)
--- NOTE | 2019-06-11 01:30 | Progress Note ---
DATE: 06/11/2019 ACUTE PAIN MANAGEMENT PHYSICIAN PROGRESS NOTE VITAL SIGNS: Within normal limits. Afebrile, pulse 100, respirations 18, blood pressure 104/72, oxygen saturation 93% on room air. LABORATORY STUDIES: From 06/10/2019 shows white count normal at 6, hematocrit 31, platelets 268. MEDICATIONS: Medication administration record reviewed. Medications include Cymbalta, Levaquin, TPN, Seroquel, Xanax, vitamin K, Colace, simethicone, Benadryl, Zofran, vitamin C, lactulose, subcutaneous Dilaudid, oral Dilaudid, Ambien. Clinically, there have been minimal changes with the patient's status. Psychiatrist, Dr. Sepulveda evaluated the patient once again yesterday with mental status examination revealing "the patient is alert and oriented times self, place, situation, and date. Mood is neutral. Affect is full range, congruent with mood. Thought process is linear and goal oriented. Thought content, no suicidal or homicidal ideations. Cognition is intact. Insight and judgment is fair." Dr. Miller saw the patient and discontinue the TPN and plan discharge in 24 to 48 hours. The patient is able to eat some of her BCIR low-residue diet and able to self-intubate with her BCIR pouch with a 24-hour output of [address] Sepulveda, Psychiatry is decreasing her Xanax doses. I will renew her current opioid doses while not switching the patient's Dilaudid over to intravenous route, which the patient continues to request. Ranjit Tillman M.D. DR: KARENA JOB#: [id number] CC:
[2019-06-11] MEDS: ALPRAZolam 0.5mg tab ORAL PRN ×2 (03:40→09:09)
[2019-06-11] MEDS: DiphenhydrAMINE 50mg/ml Inj IVP PRN ×3 (03:40→20:34)
[2019-06-11 04:00] VITALS: BP 94/64
[2019-06-11] MEDS: NovoLOG Insulin Flexpen SUBQ SCH ×4 (06:05→23:14)
[2019-06-11 06:13] LABS: BASOPHILS % (AUTO) 1.6 % (0.0-2.0); EOSINOPHILS % (AUTO) 3.9 % (0.0-3.0); HEMATOCRIT 33.5 % (37.0-47.0); HEMOGLOBIN 10.2 G/DL (12.0-16.0); LYMPHOCYTES % (AUTO) 23.3 % (20.0-45.0); MEAN CORPUSCULAR VOLUME 77 FL (80-99); MONOCYTES % (AUTO) 8.3 % (1.0-10.0); NEUTROPHILS % (AUTO) 62.9 % (45.0-75.0); PLATELET COUNT 264 K/UL (150-450); RED BLOOD COUNT 4.36 M/UL (4.20-5.40); WHITE BLOOD COUNT 7.9 K/UL (4.8-10.8)
[2019-06-11 06:37] LABS: ANION GAP 6 mmol/L (5-15); BLOOD UREA NITROGEN 15 mg/dL (7-18); CALCIUM 9.3 MG/DL (8.5-10.1); CARBON DIOXIDE 27 MMOL/L (21-32); CHLORIDE 106 MMOL/L (98-107); CREATININE 0.7 MG/DL (0.55-1.30); PHOSPHORUS 4.2 MG/DL (2.5-4.9); POTASSIUM 4.4 MMOL/L (3.5-5.1); SODIUM 139 MMOL/L (136-145)
--- NOTE | 2019-06-11 07:09 | NUR ---
HAND-OFF: Report given to DEREJE Olivas. Patient in stable condition.
[2019-06-11 08:00] VITALS: BP 96/70
--- NOTE | 2019-06-11 08:00 | NUR ---
NURSE NOTES: Received report Josesito Melton pt a/a/o/drowsy, pt laying in bed with no signs of distress or other issues at this time. total ileo output: 700ml. total urine: 550ml. PICC line in place on the left upper arm running TPN@65ml/hr. call light within reach. bed in lowest position. side rales up x2. I will f/u as needed.
[2019-06-11] MEDS: Docusate 100mg tablet ORAL SCH ×3 (09:03→18:00)
[2019-06-11] MEDS: Levofloxacin 500mg tab ORAL SCH (09:03)
--- NOTE | 2019-06-11 10:44 | GI Progress Note ---
Assessment/Plan Problems: (1) Anemia ICD Codes: D64.9 - Anemia, unspecified SNOMED: 907059693 (2) Iron deficiency ICD Codes: E61.1 - Iron deficiency SNOMED: 11584238 (3) Ileostomy present ICD Codes: Z93.2 - Ileostomy status SNOMED: 900809196 (4) History of ulcerative colitis ICD Codes: Z87.19 - Personal history of other diseases of the digestive system SNOMED: 696652452 (5) Abdominal pain ICD Codes: R10.9 - Unspecified abdominal pain SNOMED: 36829416 Status: doing well, stable Status Narrative Discussed with Dr. Davis. Assessment/Plan s/p EGD and pouchoscopy: SUMMARY OF FINDINGS: 1. GE junction at about 40 cm from the incisors without any esophagitis. 2. Gastritis, status post biopsy. 3. One polyp in the small intestine pouch, otherwise normal pouchoscopy. Biopsy of the antrum shows mild chronic gastritis. No H. pylori identified Biopsy of the Endopouch polyp shows small bowel mucosa with mild chronic inflammation and reactive changes. symptomatic treatment tolerating diet iv iron TPN pain control fu surg recs The patient was seen and examined at bedside and all new and available data was reviewed in the patients chart. I agree with the above findings, impression and plan. (Patient seen earlier today. Signature stamp does not reflect patient encounter time.). - Franklin Davis MD Subjective Subjective self intubating Objective Last 24 Hour Vital Signs Date Time Temp Pulse Resp B/P (MAP) Pulse Ox O2 Delivery O2 Flow Rate FiO2 06/11/19 04:00 98.4 83 17 94/64 (74) 98 06/11/19 00:00 98.8 97 17 96/65 (75) 98 06/10/19 21:00 Room Air 06/10/19 20:00 99.2 100 18 104/72 (83) 93 06/10/19 16:00 97.3 88 18 101/67 (78) 97 06/10/19 15:32 98.6 06/10/19 12:00 98.6 89 20 110/74 (86) 100 Intake and Output 06/10/19 06/11/19 19:00 07:00 Intake Total 2090 ml 1221 ml Output Total 2860 ml 1250 ml Balance -770 ml -29 ml Intake Oral 1180 ml 506 ml IV Total 910 ml 715 ml Output Urine Total 910 ml 550 ml Other 1950 ml 700 ml # Voids 3 1 Laboratory Tests Test 06/11/19 04:45 White Blood Count 7.9 K/UL (4.8-10.8) Red Blood Count 4.36 M/UL (4.20-5.40) Hemoglobin 10.2 G/DL (12.0-16.0) L Hematocrit 33.5 % (37.0-47.0) L Mean Corpuscular Volume 77 FL (80-99) L Mean Corpuscular Hemoglobin 23.4 PG (27.0-31.0) L Mean Corpuscular Hemoglobin Concent 30.4 G/DL (32.0-36.0) L Red Cell Distribution Width 18.0 % (11.6-14.8) H Platelet Count 264 K/UL (150-450) Mean Platelet Volume 4.8 FL (6.5-10.1) L Neutrophils (%) (Auto) 62.9 % (45.0-75.0) Lymphocytes (%) (Auto) 23.3 % (20.0-45.0) Monocytes (%) (Auto) 8.3 % (1.0-10.0) Eosinophils (%) (Auto) 3.9 % (0.0-3.0) H Basophils (%) (Auto) 1.6 % (0.0-2.0) Sodium Level 139 MMOL/L (136-145) Potassium Level 4.4 MMOL/L (3.5-5.1) Chloride Level 106 MMOL/L (98-107) Carbon Dioxide Level 27 MMOL/L (21-32) Anion Gap 6 mmol/L (5-15) Blood Urea Nitrogen 15 mg/dL (7-18) Creatinine 0.7 MG/DL (0.55-1.30) Estimat Glomerular Filtration Rate > 60 mL/min (>60) Glucose Level 87 MG/DL (74-106) Calcium Level 9.3 MG/DL (8.5-10.1) Phosphorus Level 4.2 MG/DL (2.5-4.9) Magnesium Level 2.0 MG/DL (1.8-2.4) Height (Feet): 5 Height (Inches): 3.00 Weight (Pounds): 115 General Appearance: WD/WN, no apparent distress, alert Cardiovascular: normal rate Respiratory/Chest: normal breath sounds, no respiratory distress Abdominal Exam: normal bowel sounds, non tender, soft Extremities: normal range of motion, non-tender Kermit Samson NP Jun 11, 2019 10:44
[2019-06-11] MEDS: HYDROmorphone 4mg tab ORAL PRN ×3 (11:25→20:33)
[2019-06-11 12:00] VITALS: BP 99/70
--- NOTE | 2019-06-11 14:30 | NUR ---
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
[2019-06-11] MEDS: Lactulose 20gm/30ml UDC ORAL PRN (15:41)
[2019-06-11 16:00] VITALS: BP 118/66
--- NOTE | 2019-06-11 16:32 | General Progress Note ---
Progress Note Progress Note Having large volume of ileostomy output when intubates - as much as 900cc at one intubation. I have pleaded with the patient to intubate every 3-4 hours to decrease intestinal distention and enable her to eat better. Took 1600cc po fluids abdomen soft [id number] BCIR ileo 2650 labs all sastisfactory Imp. Improved Plan: finish TPN after tonight/tomorrow infusion stool for C. diff toxin (sent this AM) hold lactulose unless output is very thick discharge planning for 2-3 days from now Nolan Miller MD Jun 11, 2019 16:32
[2019-06-11] MEDS: Simethicone 80mg tab ORAL PRN (18:18)
[2019-06-11 20:00] VITALS: BP 92/60
--- NOTE | 2019-06-11 20:00 | NUR ---
HAND-OFF: Report given to Josesito Melton pt instable condition. - RN encouraged patient to eat small frequent meals as well as to intubated more frequently Q3h- Q4h. patient verbalized understanding and stated that she will try. - RN faxed prescription to [facility] for patients Dilaudid for home use. Awaiting for delivery. total I&O's total ileostomy output: 600ml total urine: 300ml total oral intake: 1416ml
[2019-06-11] MEDS: Dyna-Hex 2% Top Sol 2oz TOPIC SCH (20:32)
[2019-06-11] MEDS: Fat Emulsion Iv 20% 192 ML in Tpn 1,368 ML IV SCH (20:32)
[2019-06-11] MEDS ORDERED: ALPRAZolam 0.5mg tab ORAL SCH (21:00)
[2019-06-12] VITALS: BP 101/74
[2019-06-12] MEDS: HYDROmorphone 1mg/ml Carpuject SUBQ PRN ×3 (02:53→21:29)
[2019-06-12 04:00] VITALS: BP 98/70
[2019-06-12 06:12] LABS: ANION GAP 6 mmol/L (5-15); BLOOD UREA NITROGEN 13 mg/dL (7-18); CALCIUM 9.2 MG/DL (8.5-10.1); CARBON DIOXIDE 26 MMOL/L (21-32); CHLORIDE 105 MMOL/L (98-107); CREATININE 0.7 MG/DL (0.55-1.30); POTASSIUM 4.5 MMOL/L (3.5-5.1); SODIUM 137 MMOL/L (136-145)
[2019-06-12 06:17] LABS: BASOPHILS % (AUTO) 1.5 % (0.0-2.0); EOSINOPHILS % (AUTO) 3.4 % (0.0-3.0); HEMATOCRIT 32.2 % (37.0-47.0); HEMOGLOBIN 9.8 G/DL (12.0-16.0); LYMPHOCYTES % (AUTO) 23.8 % (20.0-45.0); MEAN CORPUSCULAR VOLUME 77 FL (80-99); MONOCYTES % (AUTO) 6.1 % (1.0-10.0); NEUTROPHILS % (AUTO) 65.2 % (45.0-75.0); PLATELET COUNT 276 K/UL (150-450); RED BLOOD COUNT 4.18 M/UL (4.20-5.40); RED CELL DISTRIBUTION WIDTH 18.7 % (11.6-14.8); WHITE BLOOD COUNT 8.2 K/UL (4.8-10.8)
[2019-06-12] MEDS: DiphenhydrAMINE 50mg/ml Inj IVP PRN ×3 (06:17→20:13)
[2019-06-12] MEDS: ALPRAZolam 0.5mg tab ORAL PRN ×2 (06:17→16:58)
[2019-06-12] MEDS: NovoLOG Insulin Flexpen SUBQ SCH ×3 (06:27→17:00)
[2019-06-12 08:00] VITALS: BP 98/74
--- NOTE | 2019-06-12 08:00 | NUR ---
NURSE NOTES: Received report Josesito Melton pt a/a/o/drowsy, pt laying in bed with no signs of distress or other issues at this time. total ileo output: 600ml. total urine: 600ml. PICC line in place on the left upper arm running TPN@65ml/hr. call light within reach. bed in lowest position. side rales up x2. I will f/u as needed.
[2019-06-12] MEDS: Docusate 100mg tablet ORAL SCH ×3 (09:00→18:00)
[2019-06-12] MEDS: Levofloxacin 500mg tab ORAL SCH (09:04)
[2019-06-12] MEDS: Lactulose 20gm/30ml UDC ORAL PRN (09:04)
--- NOTE | 2019-06-12 10:42 | GI Progress Note ---
Assessment/Plan Problems: (1) Anemia ICD Codes: D64.9 - Anemia, unspecified SNOMED: 951936783 (2) Iron deficiency ICD Codes: E61.1 - Iron deficiency SNOMED: 11619137 (3) Ileostomy present ICD Codes: Z93.2 - Ileostomy status SNOMED: 248639240 (4) History of ulcerative colitis ICD Codes: Z87.19 - Personal history of other diseases of the digestive system SNOMED: 631849798 (5) Abdominal pain ICD Codes: R10.9 - Unspecified abdominal pain SNOMED: 13829710 Status: stable, progressing Status Narrative Discussed with Dr. Davis. Assessment/Plan s/p EGD and pouchoscopy: SUMMARY OF FINDINGS: 1. GE junction at about 40 cm from the incisors without any esophagitis. 2. Gastritis, status post biopsy. 3. One polyp in the small intestine pouch, otherwise normal pouchoscopy. Biopsy of the antrum shows mild chronic gastritis. No H. pylori identified Biopsy of the Endopouch polyp shows small bowel mucosa with mild chronic inflammation and reactive changes. cdiff negative symptomatic treatment tolerating diet iv iron TPN off pain control fu surg recs The patient was seen and examined at bedside and all new and available data was reviewed in the patients chart. I agree with the above findings, impression and plan. (Patient seen earlier today. Signature stamp does not reflect patient encounter time.). - Franklin Davis MD Subjective Subjective self intubating Objective Last 24 Hour Vital Signs Date Time Temp Pulse Resp B/P (MAP) Pulse Ox O2 Delivery O2 Flow Rate FiO2 06/12/19 08:00 97.7 104 18 98/74 (82) 98 06/12/19 04:00 97.5 88 16 98/70 (79) 98 06/12/19 00:00 97.3 85 16 101/74 (83) 96 06/11/19 21:00 Room Air 06/11/19 20:00 97.7 112 14 92/60 (71) 96 06/11/19 16:12 97.6 06/11/19 16:00 97.9 83 18 118/66 (83) 97 06/11/19 12:00 97.6 82 18 99/70 (80) 96 Intake and Output 06/11/19 06/12/19 19:00 07:00 Intake Total 2196 ml 1016 ml Output Total 900 ml 1200 ml Balance 1296 ml -184 ml Intake Oral 1416 ml 236 ml IV Total 780 ml 780 ml Output Urine Total 300 ml 600 ml Other 600 ml 600 ml # Voids 1 1 Laboratory Tests Test 06/12/19 04:50 White Blood Count 8.2 K/UL (4.8-10.8) Red Blood Count 4.18 M/UL (4.20-5.40) L Hemoglobin 9.8 G/DL (12.0-16.0) L Hematocrit 32.2 % (37.0-47.0) L Mean Corpuscular Volume 77 FL (80-99) L Mean Corpuscular Hemoglobin 23.5 PG (27.0-31.0) L Mean Corpuscular Hemoglobin Concent 30.4 G/DL (32.0-36.0) L Red Cell Distribution Width 18.7 % (11.6-14.8) H Platelet Count 276 K/UL (150-450) Mean Platelet Volume 4.8 FL (6.5-10.1) L Neutrophils (%) (Auto) 65.2 % (45.0-75.0) Lymphocytes (%) (Auto) 23.8 % (20.0-45.0) Monocytes (%) (Auto) 6.1 % (1.0-10.0) Eosinophils (%) (Auto) 3.4 % (0.0-3.0) H Basophils (%) (Auto) 1.5 % (0.0-2.0) Sodium Level 137 MMOL/L (136-145) Potassium Level 4.5 MMOL/L (3.5-5.1) Chloride Level 105 MMOL/L (98-107) Carbon Dioxide Level 26 MMOL/L (21-32) Anion Gap 6 mmol/L (5-15) Blood Urea Nitrogen 13 mg/dL (7-18) Creatinine 0.7 MG/DL (0.55-1.30) Estimat Glomerular Filtration Rate > 60 mL/min (>60) Glucose Level 116 MG/DL (74-106) H Calcium Level 9.2 MG/DL (8.5-10.1) Microbiology Date/Time Source Procedure Growth Status 06/11/19 11:00 Stool Clostridium difficile Toxin Assay - Final Complete Height (Feet): 5 Height (Inches): 3.00 Weight (Pounds): 115 General Appearance: WD/WN, no apparent distress, alert Cardiovascular: normal rate Respiratory/Chest: normal breath sounds, no respiratory distress Abdominal Exam: normal bowel sounds, non tender, soft Extremities: normal range of motion, non-tender Kermit Samson NP Jun 12, 2019 10:41
[2019-06-12] MEDS: HYDROmorphone 4mg tab ORAL PRN (11:25)
[2019-06-12 12:00] VITALS: BP 99/72
--- NOTE | 2019-06-12 14:00 | NUR ---
NURSE NOTES: called [facility] at [phone] to f/u with patients prescription for home use: Dilaudid 4mg [id number]. spoke with intake, he stated that they will deliver ERUM. plan to d/c Monday. I will f/u as needed.
--- NOTE | 2019-06-12 15:01 | NUR ---
RD ASSESSMENT & RECOMMENDATIONS SEE CARE ACTIVITY FOR COMPLETE ASSESSMENT DAILY ESTIMATED NEEDS: Needs based on General/ 46.72kg 25-30 kcals/kg 5767-7840 total kcals 1-1.5 g protein/kg 47-70 g total protein 25-30 mL/kg 7911-6846 total fluid mLs NUTRITION DIAGNOSIS: Altered GI function R/T h/o UC, ileostomy as evidenced by h/o proctocolectomy together with Joy continent intestinal reservoir and right salpingo-oophorectomy, s/p multiple Joy pouch revisions, admitted w/ c/o abdominal pain and not been able to insert catheter to BCIR , pending multiple GI evaluations at this time, on TPN, now advanced to BCIR low fiber low residue diet. CURRENT DIET:BCIR PO DIET RECOMMENDATIONS: Diet per MD PARENTERAL NUTRITION RECOMMENDATIONS: D/AA Rate: 57 IL Rate: 8 Total Rate: 65 Volume: 1560 % Dextrose: 16 % AA: 5.0 Energy (kcals/kg): 1401 Protein (g/kg protein): 68 Nonprotein KCALS: 1128 GIR (mg CHO/kg/min): 3.2 % Fat KCALS: 27 NCP: N Ratio: 103.6:1 TPN Comment: * D16% AA 5.0% @ 57ml/hr + IL 20% @ 8ml/hr -> total of 65ml/hr, all 3:1 * TPN at goal will provide 100% est kcal/prot needs -> 30kcal/1.46g prot per kg actual body wt ADDITIONAL RECOMMENDATIONS: * Standing wt as able for accurate CBW -> weekly wt monitoring * Monitor BGs, LFTs, and lytes daily w/ TPN * Monitor PO intake closely -> TPN possibly DC today
[2019-06-12] MEDS ORDERED: HYDROmorphone 4mg tab ORAL PRN (15:02)
--- NOTE | 2019-06-12 15:03 | General Progress Note ---
Progress Note Progress Note Patient eating and intubating her Barn[place] pouch but refuses to keep to schedule for intubating, She has been observed with pills in her hands but she denies access to her things Abdomen soft Imp. Improved Plan: d/C TPN complete course of Levaquin for UTI d/c PIC and discharge tomorrow or next day pending final Rx plans by Psychiatry and Pain Management Nolan Miller MD Jun 12, 2019 15:02
[2019-06-12 16:00] VITALS: BP 82/57
--- NOTE | 2019-06-12 19:13 | NUR ---
HAND-OFF: Report given to Yaima RN, pt in stable condition. - endorsed to incoming nurse that patient's RX for Dilaudid is already fill out and send out to the pharmacy. - RN encourage patient to ceat small meals at the time and to intubated more often. patient verbalized understanding. Total I&O's total ileostomy output: 600ml total urine output: 300ml
--- NOTE | 2019-06-12 19:30 | NUR ---
NURSE NOTES: Received report & pt from DEREJE Sanon. Pt lying in bed, a&ox4, in room air. No s/s of acute distress & no c/o pain at this time. PICC line intact with TPN running as ordered. Bed in lowest position, call light within reach. Will continue to monitor.
--- NOTE | 2019-06-12 19:30 | Progress Note ---
DATE: 06/12/2019 ACUTE PAIN MANAGEMENT PHYSICIAN PROGRESS NOTE MEDICATIONS: Medication administration record reviewed. Medications include Xanax, vitamin C, Benadryl, Colace, Cymbalta, Dilaudid, Levaquin, lactulose, Zofran, Seroquel, Mylicon, Ambien. LABORATORY STUDIES: This morning, 06/12/2019 shows white count 8, hematocrit 32, and platelets 276,000. Sodium 137, potassium 4.5, chloride 105, bicarbonate 26, BUN 13, creatinine 0.7, glucose 116, calcium 9.2, phosphorus 4.2, magnesium 2.0, total protein 7.2, albumin 3.0 . OBJECTIVE: VITAL SIGNS: Shows afebrile, pulse 102, respirations 18, blood pressure 100/72, and oxygen saturation 98% on room air. I discussed the case in detail with the surgeon, Dr. Miller along with the nurse RN, Stephanie. Psychiatrist, Dr. Sepulveda is to still determine whether the patient will require a prescription for Xanax for outpatient usage. I wrote the prescription for 20 tablets of Dilaudid 4 mg for outpatient usage. The patient's outpatient pain doctor, Dashawn spoke with me last week. He confirmed that he is more than happy to see the patient for outpatient pain management and narcotic refills adjustment, if the patient decides to show up for her scheduled appointments in his outpatient clinic. The patient has a history of making appointments, but not showing up, per Dr. Tamez. Dr. Miller has sent a stool for C. difficile toxin and is holding lactulose, hoping for discharge planning later this week. Ranjit Tillman M.D. DR: ADRIANA JOB#: [id number] CC:
[2019-06-12 20:00] VITALS: BP 104/66
[2019-06-12] MEDS: Dyna-Hex 2% Top Sol 2oz TOPIC SCH (20:13)
[2019-06-12] MEDS: ALPRAZolam 0.5mg tab ORAL SCH (20:14)
--- NOTE | 2019-06-12 21:15 | Progress Note ---
DATE: 06/12/2019 SUBJECTIVE: The patient was asleep when I entered the room. She was tired. She just received a dose of Xanax. The patient was earlier upset with physician that the Xanax was tapered down, requested to increase her dosage to where it was and asking for prescription upon discharge. The patient has poor insight and judgment into her mental condition to this medication. MENTAL STATUS EXAMINATION: The patient is alert and oriented times self, place, situation, and date. Mood is dysphoric. Affect is full and congruent with mood and appropriate. Thought process is circumstantial. Thought content, no suicidal or homicidal ideations. Cognition is intact. Insight and judgment is poor. ASSESSMENT: 1. PTSD by history. 2. Anxiety disorder. 3. Polysubstance dependence. 4. Major depressive disorder. PLAN: 1. We will continue the Xanax 1 mg p.o. b.i.d. p.r.n. and 2 mg nightly. 2. Cymbalta. 3. Seroquel. 4. Discussed the case with the nurse. 5. Provide the patient with reality orientation and supportive therapy. Brianna Sepulveda M.D. DR: Richard JOB#: [id number] CC: DANIEL
--- NOTE | 2019-06-12 21:30 | NUR ---
NURSE NOTES: TPN bag nearly done. Changed rate to 30ml/hr x 2hrs & will D/C TPN after 2 hrs as ordered by .
--- NOTE | 2019-06-12 23:30 | NUR ---
NURSE NOTES: TPN D/C'd as ordered by .
[2019-06-13] VITALS: BP 92/66
[2019-06-13] MEDS: HYDROmorphone 1mg/ml Carpuject SUBQ PRN ×4 (00:42→23:41)
[2019-06-13] MEDS: Zolpidem 5mg tab ORAL PRN (02:28)
[2019-06-13 04:00] VITALS: BP 116/76
[2019-06-13 06:07] LABS: BASOPHILS % (AUTO) 1.6 % (0.0-2.0); EOSINOPHILS % (AUTO) 2.9 % (0.0-3.0); HEMATOCRIT 33.1 % (37.0-47.0); HEMOGLOBIN 10.3 G/DL (12.0-16.0); LYMPHOCYTES % (AUTO) 21.6 % (20.0-45.0); MEAN CORPUSCULAR VOLUME 76 FL (80-99); MONOCYTES % (AUTO) 5.7 % (1.0-10.0); NEUTROPHILS % (AUTO) 68.2 % (45.0-75.0); PLATELET COUNT 283 K/UL (150-450); RED BLOOD COUNT 4.34 M/UL (4.20-5.40); RED CELL DISTRIBUTION WIDTH 18.7 % (11.6-14.8); WHITE BLOOD COUNT 8.8 K/UL (4.8-10.8)
[2019-06-13 06:10] LABS: ANION GAP 7 mmol/L (5-15); BLOOD UREA NITROGEN 10 mg/dL (7-18); CALCIUM 9.2 MG/DL (8.5-10.1); CARBON DIOXIDE 27 MMOL/L (21-32); CHLORIDE 104 MMOL/L (98-107); CREATININE 0.7 MG/DL (0.55-1.30); POTASSIUM 3.7 MMOL/L (3.5-5.1); SODIUM 137 MMOL/L (136-145)
[2019-06-13] MEDS: DiphenhydrAMINE 50mg/ml Inj IVP PRN (06:25)
[2019-06-13] MEDS: ALPRAZolam 0.5mg tab ORAL PRN ×2 (06:25→16:06)
--- NOTE | 2019-06-13 07:30 | NUR ---
HAND-OFF: Report given to DEREJE Barker. Rounds done. Pt in stable condition.
[2019-06-13 08:00] VITALS: BP 131/77
--- NOTE | 2019-06-13 08:08 | NUR ---
NURSE NOTES: WALKING ROUNDS DONE WITH OUTGOING RN. PATIENT AWAKE IN BED HAVING BREAKFAST. QUESTIONS ANSWERED NEEDS MET. ILEOSTOMY SITE C/D/I. DISCUSSED PLAN OF CARE. VERBALIZED UNDERSTANDING..STATES PAIN IS 4/10 ON PAIN SCALE. BED IN LOWEST AND LOCKED POSITION. CALL LIGHT WITHIN REACH.
--- NOTE | 2019-06-13 08:14 | General Progress Note ---
Progress Note Progress Note eating better and intubating her Joy pouch without difficulty but refuses to intubate more often to decreased bloating and pain and cramps Abdomen soft WBC 8800 Hgb 10.3 BMP wnl Imp. Improved Plan; d/c PIC line discharge in AM Nolan Miller MD Jun 13, 2019 08:14
[2019-06-13] MEDS: Docusate 100mg tablet ORAL SCH ×3 (09:48→17:42)
[2019-06-13] MEDS: Levofloxacin 500mg tab ORAL SCH (09:48)
--- NOTE | 2019-06-13 09:51 | GI Progress Note ---
Assessment/Plan Problems: (1) Anemia ICD Codes: D64.9 - Anemia, unspecified SNOMED: 368230716 (2) Iron deficiency ICD Codes: E61.1 - Iron deficiency SNOMED: 20647494 (3) Ileostomy present ICD Codes: Z93.2 - Ileostomy status SNOMED: 834854030 (4) History of ulcerative colitis ICD Codes: Z87.19 - Personal history of other diseases of the digestive system SNOMED: 948495028 (5) Abdominal pain ICD Codes: R10.9 - Unspecified abdominal pain SNOMED: 13344344 Status: stable Status Narrative Discussed with Dr. Davis. Assessment/Plan s/p EGD and pouchoscopy: SUMMARY OF FINDINGS: 1. GE junction at about 40 cm from the incisors without any esophagitis. 2. Gastritis, status post biopsy. 3. One polyp in the small intestine pouch, otherwise normal pouchoscopy. Biopsy of the antrum shows mild chronic gastritis. No H. pylori identified Biopsy of the Endopouch polyp shows small bowel mucosa with mild chronic inflammation and reactive changes. cdiff negative symptomatic treatment tolerating diet iv iron TPN off pain control fu surg recs The patient was seen and examined at bedside and all new and available data was reviewed in the patients chart. I agree with the above findings, impression and plan. (Patient seen earlier today. Signature stamp does not reflect patient encounter time.). - Franklin Davis MD Subjective Gastrointestinal/Abdominal: Reports: no symptoms Subjective self intubating Objective Last 24 Hour Vital Signs Date Time Temp Pulse Resp B/P (MAP) Pulse Ox O2 Delivery O2 Flow Rate FiO2 06/13/19 08:00 97.8 102 15 131/77 (95) 98 06/13/19 04:00 97.3 92 16 116/76 (89) 98 06/13/19 00:00 98.2 91 16 92/66 (75) 98 06/12/19 21:00 Room Air 06/12/19 20:00 98.6 109 17 104/66 (79) 97 06/12/19 16:00 98.2 65 18 82/57 (65) 98 06/12/19 12:00 98.5 102 18 99/72 (81) 98 06/12/19 11:55 97.7 Intake and Output 06/12/19 06/13/19 19:00 07:00 Intake Total 2196 ml 360 ml Output Total 1000 ml 1600 ml Balance 1196 ml -1240 ml Intake Oral 1416 ml 360 ml IV Total 780 ml Output Urine Total 400 ml 300 ml Other 600 ml 1300 ml # Voids 1 Laboratory Tests Test 06/13/19 05:00 White Blood Count 8.8 K/UL (4.8-10.8) Red Blood Count 4.34 M/UL (4.20-5.40) Hemoglobin 10.3 G/DL (12.0-16.0) L Hematocrit 33.1 % (37.0-47.0) L Mean Corpuscular Volume 76 FL (80-99) L Mean Corpuscular Hemoglobin 23.7 PG (27.0-31.0) L Mean Corpuscular Hemoglobin Concent 31.1 G/DL (32.0-36.0) L Red Cell Distribution Width 18.7 % (11.6-14.8) H Platelet Count 283 K/UL (150-450) Mean Platelet Volume 4.9 FL (6.5-10.1) L Neutrophils (%) (Auto) 68.2 % (45.0-75.0) Lymphocytes (%) (Auto) 21.6 % (20.0-45.0) Monocytes (%) (Auto) 5.7 % (1.0-10.0) Eosinophils (%) (Auto) 2.9 % (0.0-3.0) Basophils (%) (Auto) 1.6 % (0.0-2.0) Sodium Level 137 MMOL/L (136-145) Potassium Level 3.7 MMOL/L (3.5-5.1) Chloride Level 104 MMOL/L (98-107) Carbon Dioxide Level 27 MMOL/L (21-32) Anion Gap 7 mmol/L (5-15) Blood Urea Nitrogen 10 mg/dL (7-18) Creatinine 0.7 MG/DL (0.55-1.30) Estimat Glomerular Filtration Rate > 60 mL/min (>60) Glucose Level 83 MG/DL (74-106) Calcium Level 9.2 MG/DL (8.5-10.1) Height (Feet): 5 Height (Inches): 3.00 Weight (Pounds): 115 General Appearance: WD/WN, no apparent distress, alert Cardiovascular: normal rate Respiratory/Chest: normal breath sounds, no respiratory distress Abdominal Exam: normal bowel sounds, non tender, soft Extremities: normal range of motion, non-tender Kermit Samson NP Jun 13, 2019 09:51
[2019-06-13] MEDS: Lactulose 20gm/30ml UDC ORAL PRN (09:58)
--- NOTE | 2019-06-13 10:00 | NUR ---
NURSE NOTES: PER MD ORDER PICC LINE DC'D. NOTED 40 CM AT END OF PICC LINE INSERTION SITE REMOVED. SPO2 100% RA. HR 101. MANUEL SOB. PATIENT INSTRUCTED TO LAY FLAT FOR 30 MINS. WILL RE-EVALUATE CONDITION. CALL LIGHT WITHIN REACH.
[2019-06-13 11:41] VITALS: BP 127/81
--- NOTE | 2019-06-13 14:30 | NUR ---
NURSE NOTES: PATIENT DISPLAYS NO SOB/ CHEST PAIN AFTER REMOVAL OF PICC LINE. VSS.AFEBRILE. RECEIVED CALL FROM [facility] OF XANAX RX WRITTEN BY DR. VINCENT , THAT THE DOSE IS TOO HIGH. PLACED CALL TO MD TO CALL AND VERIFY WITH PHARMACY TO FILL PRESCRIPTION. AWAITING RETURN CALL.
[2019-06-13 16:00] VITALS: BP 110/76
--- NOTE | 2019-06-13 17:25 | NUR ---
NURSE NOTES: PLACED CALL TO [facility] TO CONFIRM CALL FROM DR. VINCENT TO PHARMACY; NO CALL TO PHARMACY OR TO NURSE ON . WILL ENDORSED TO ONCOMING RN.
--- NOTE | 2019-06-13 17:53 | NUR ---
NURSE NOTES: PATIENT REMAINS STABLE. GIVEN ILEOSTOMY DISCHARGE SUPPLIES GIVEN PER MD ORDER. PATIENT CALM AND COOPERATIVE THROUGHOUT THE DAY. VSS. AFEBRILE.
--- NOTE | 2019-06-13 18:29 | NUR ---
NURSE NOTES: RESPONSE RECEIVED FROM DR. AGUAYO CONCERNING XANAX DOSE. PER MD, LEFT VM TO [facility] WITH CORRECT DOSAGE. WILL ENDORSE TO ONCOMING RN.
--- NOTE | 2019-06-13 19:26 | NUR ---
HAND-OFF: Report given to MILADIS MOREJON RN.
[2019-06-13 20:00] VITALS: BP 131/92
[2019-06-13] MEDS: Dyna-Hex 2% Top Sol 2oz TOPIC SCH (20:00)
[2019-06-13] MEDS: ALPRAZolam 0.5mg tab ORAL SCH (21:20)
--- NOTE | 2019-06-13 21:37 | NUR ---
NURSE NOTES: Handoff report received from DEREJE Barker. Patient is ambulating in the hallways. DAYAMI PICC is removed; former site is clean and dry. Abdomen is flat and soft. VSS, no c/o of SOB or signs of distress.
[2019-06-14] VITALS: BP 110/88
[2019-06-14] MEDS: Zolpidem 5mg tab ORAL PRN (00:39)
--- NOTE | 2019-06-14 07:30 | NUR ---
HAND-OFF: Report given to DEREJE Perea. Rounds done. Pt in stable condition. D/C assessments done.
--- NOTE | 2019-06-14 07:30 | NUR ---
NURSE NOTES: Patient is in bed asleep. Stable. No signs of distress noted. Breathing is even and unlabored. Patient is in bed in locked and lowest position with call light within. All safety measures provided. Will continue to monitor.
[2019-06-14 08:00] VITALS: BP 103/85
--- NOTE | 2019-06-14 08:44 | Progress Note ---
DATE: 06/13/2019 SUBJECTIVE: The patient was very upset today, irritable demanding that I give her Xanax 2 mg three times a day. I also discussed addiction to benzodiazepines. The patient is constantly going back to the issues that she will Xanax three times a day to get a prescription. She stated her psychiatrist will not call her prescription in. She is going to [place] for a week and then she will return to [place]. The patient was told that she will be given Xanax 1 mg t.i.d. 15 pills to [place] and discuss the case with her psychiatrist. The patient is very upset, illogical. MENTAL STATUS EXAMINATION: The patient is alert and oriented times to self, place, and situation. Mood is irritable. Affect is blunted, congruent with mood. Thought process is linear. Thought content, no suicidal or homicidal ideations. Cognition is intact. Insight and judgment are poor. ASSESSMENT: 1. Polysubstance dependence. 2. Depression. 3. PTSD. PLAN: 1. We will continue the current medications. The prescription was given for Xanax. 2. PTSD, benzodiazepines are contraindicated and not recommended was present during the evaluation. Brianna Sepulveda M.D. DR: FREDO JOB#: [id number] CC: DANIEL
[2019-06-14] MEDS: Docusate 100mg tablet ORAL SCH ×2 (09:12→13:00)
--- NOTE | 2019-06-14 11:01 | GI Progress Note ---
Assessment/Plan Problems: (1) Anemia ICD Codes: D64.9 - Anemia, unspecified SNOMED: 794673659 (2) Iron deficiency ICD Codes: E61.1 - Iron deficiency SNOMED: 44257094 (3) Ileostomy present ICD Codes: Z93.2 - Ileostomy status SNOMED: 482849841 (4) History of ulcerative colitis ICD Codes: Z87.19 - Personal history of other diseases of the digestive system SNOMED: 968019097 (5) Abdominal pain ICD Codes: R10.9 - Unspecified abdominal pain SNOMED: 39851421 Status: doing well, stable Status Narrative Discussed with Dr. Davis. Assessment/Plan s/p EGD and pouchoscopy: SUMMARY OF FINDINGS: 1. GE junction at about 40 cm from the incisors without any esophagitis. 2. Gastritis, status post biopsy. 3. One polyp in the small intestine pouch, otherwise normal pouchoscopy. Biopsy of the antrum shows mild chronic gastritis. No H. pylori identified Biopsy of the Endopouch polyp shows small bowel mucosa with mild chronic inflammation and reactive changes. cdiff negative symptomatic treatment tolerating diet iv iron TPN off pain control fu surg recs The patient was seen and examined at bedside and all new and available data was reviewed in the patients chart. I agree with the above findings, impression and plan. (Patient seen earlier today. Signature stamp does not reflect patient encounter time.). - Franklin Davis MD Subjective Gastrointestinal/Abdominal: Reports: no symptoms Subjective self intubating Objective Last 24 Hour Vital Signs Date Time Temp Pulse Resp B/P (MAP) Pulse Ox O2 Delivery O2 Flow Rate FiO2 06/14/19 09:00 Room Air 06/14/19 08:00 98.3 96 16 103/85 (91) 98 06/14/19 00:00 97.8 104 14 110/88 (95) 97 06/13/19 21:00 Room Air 06/13/19 20:00 97.8 118 20 131/92 (105) 100 06/13/19 16:00 98.0 109 17 110/76 (87) 99 06/13/19 11:41 98.2 98 16 127/81 (96) 98 Intake and Output 06/13/19 06/14/19 19:00 07:00 Intake Total 840 ml 360 ml Output Total 1100 ml 1700 ml Balance -260 ml -1340 ml Intake Oral 840 ml 360 ml Output Urine Total 400 ml 700 ml Other 700 ml 1000 ml # Voids 2 Height (Feet): 5 Height (Inches): 3.00 Weight (Pounds): 115 General Appearance: WD/WN, no apparent distress, alert Cardiovascular: normal rate Respiratory/Chest: normal breath sounds, no respiratory distress Abdominal Exam: normal bowel sounds, non tender, soft Extremities: normal range of motion, non-tender Kermit Samson NP Jun 14, 2019 11:01
[2019-06-14 12:00] VITALS: BP 98/81
--- NOTE | 2019-06-14 12:21 | General Progress Note ---
Progress Note Progress Note AVSS Eating about 50% of BCIR diet. Urine 1100 BCIR ileo 1700 Continued psychiatric and drug dependency issues continue non-compliance with proper intubation schedule of Joy Pouch Plan: discharge Follow-up with doctors at home in [place] Nolan Miller MD Jun 14, 2019 12:21
--- NOTE | 2019-06-14 13:15 | NUR ---
NURSE NOTES: PATIENT DISCHARGED ORDERED. STABLE. DENIES PAIN OR SOB. PATIENT WAS GIVEN THOROUGH DISCHARGE INSTRUCTIONS BY RN, VERBALIZED UNDERSTANDING. PATIENT WAS GIVEN THOROUGH MEDICATION TEACHING, VERBALIZED UNDERSTANDING. PATIENT HAS ALL BELONGINGS. ALL PRESCRIPTIONS FILLED AND MEDICATION GIVEN TO PATIENT UPON D/C. PATIENT ASSISTED DOWNSTAIRS INTO PRIVATE VEHICLE BY RN WITHOUT INCIDENT. NO IV ACCESS ON PATIENT. PATIENT STATED THAT SHE WILL FOLLOW UP WITH PRIMARY SURGEON AT HOME.
--- NOTE | 2019-06-15 01:00 | Progress Note ---
DATE: 06/14/2019 SUBJECTIVE: The patient's mental status is unchanged. She Continues to be anxious, irritable, and upset that I am not giving her Xanax 2 mg t.i.d. The patient is going to [place] and then going back to [place]. She is going to follow up with her outpatient psychiatrist. The patient has poor insight into her current medication drug dependence. MENTAL STATUS EXAMINATION: The patient is alert, oriented times self, place, and situation. Mood is irritable. Affect is constricted, congruent with mood. Thought process, linear and goal oriented. Thought content, no suicidal or homicidal ideation. Cognition is intact. Insight and judgment is poor. ASSESSMENT: Mabel I Polysubstance dependence. Mabel II Deferred. Mabel III As above. Mabel IV Low. Mabel V 20. PLAN: 1. We will continue the current medication. Prescription was given for medications. 2. Provide the patient with reality orientation and supportive therapy. Brianna Sepulveda M.D. DR: ДМИТРИЙ JOB#: [id number] CC: DANIEL
--- NOTE | 2019-06-16 19:24 | Discharge Summary ---
Discharge Summary Discharge Summary _ DATE OF ADMISSION: 05/29/2019 DATE OF DISCHARGE: 06/14/2019 DISCHARGED BY: Dr. Nolan Miller CONSULTANTS: Dr. Ranjit Sepulveda HISTORY OF PRESENT ILLNESS: The patient is a 38-year-old female with a complicated medical and surgical history, who presented to the emergency room from the [facility] ER after two very prolonged late hospitalizations in [place], one 8 months starting in August of 2017 and 4 months earlier this year in 2019. She was finally discharged with a home Dilaudid SAP BODS DEVELOPER. The patient complained of severe and sometimes excruciating abdominal pain, it is painful to eat, painful to catheterize her internal continent ileostomy to evacuate, painful to stand, and she h no ad painful urination with diminished urination. The patient developed ulcerative colitis at age 14. In August 2017 in [place], she underwent proctocolectomy together with Joy continent intestinal reservoir and right salpingo-oophorectomy for ulcerative colitis with findings of colon cancer. She had a prior history of abdominal hysterectomy in 2016 for cervical cancer. The patient had a prolonged 8 month hospital stay due to what she says are a series of complications, 1 after the other, but we do not have an adequate explanation for this and we do not have records for this. The patient was discharged for some time and then readmitted. There me question if she had chemo or radiation following her conjunction with her total hysterectomy. The patient states for the past 36 hours, she has been unable to insert her Joy continent ileostomy drainage catheter and accordingly, has been getting distended with more pain and cramping and has no stool or gas. We will evacuate until the pouch is catheterized to evacuate stool. The patient underwent revision of the pouch revising the collar segment and access/stoma segment on June 02, 2018 and again on December 14, 2018 and again on March 01, 2019. She underwent a stoma revision on April 12, 2019, but states her stoma is getting progressively smaller and she has more difficulty inserting her 30-English silicon catheter. She often has bleeding with blood running down her legs. She had a venous infusion port placed in May 2018, but this was removed in the recent months for infection. The patient does not have signs or symptoms of sepsis, but states that she had some cardiac arrhythmia and allegedly required defibrillation during her prolonged hospital stay. Again, details were not available. The patient could not find doctors to take care of her in [place] because her surgeon from all of these operations was suddenly not available to operate on patients. BRIEF HOSPITAL COURSE: Patient was admitted. A dual-lumen PICC line was placed for venous access and for total parenteral nutrition. CT scan of the abdomen and pelvis with oral contrast revealed slow progression of contrast partway through the small bowel, but no evidence of obstruction. The position of the pouch appeared very abnormal and presenting in an anteriorposterior plane, cannot rule out malrotation. The catheter appeared to be down near the coccyx. The bladder was very distended with mild right hydronephrosis and hydroureter. Concern that marked bladder distention was causing this problem. Bladder scan post void revealed 408 mL residual. A Morgan catheter was then inserted. She was given pain management. 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 She was continued on SAP BODS DEVELOPER Dilaudid. GI was consulted. She underwent Joy pouch endoscopy by Dr. Davis with no acute findings. She was noted to have severe iron deficiency iron of 18 and ferritin 2. Albumin was only 3.3. She was given Venofer. She was placed on n.p.o. and was given TPN. Psychiatrist was consulted. Patient has a history of suicide attempt in August 2018. Patient was currently stabilized on multiple psychotropic medications. Patient is also on large dose of pain medications. She was diagnosed with posttraumatic stress disorder, major depressive disorder, anxiety disorder and ADHD. She was continued on Seroquel, Xanax and Cymbalta. She was assessed to be not an imminent danger to self or others. Kock pouch pouchogram x-ray was normal with no evidence of proximal obstruction or inflammation. Abdominal pain was likely not organic as extensive evaluation has failed to reveal any abnormalities of GI tract including Joy continent ileostomy. Pain management doctor from [place] indicated that the patient has been fabricating stories, she was never sent pain with SAP BODS DEVELOPER. Patient has severe psychiatric and addiction issues, no surgery was indicated. She displayed opioid dependency and narcotic dependency behavior. Dilaudid was changed to subcu. Magnesium was 1.7, Albumin 2.9. Patient was started on BCIR low resident diet. She was given magnesium supplements. Urine culture showed growth of Klebsiella sensitive to Levaquin. Patient was tolerating p.o. fluids but was not eating solid foods. She was started on Levaquin 500 mg p.o. A 30 English Rebecca catheter was inserted into the pouch with good output. Patient was self intubating her while, which, however was not eating and was only taking limited p.o. fluids. Lactulose was added tid for thick ileo effluent, however patient refused to take it. She was given trial of prune juice. She eventually agreed to take lactulose. She was able to tolerate diet. She had a large volume in the ileostomy output, as much as 900 cc of one intubation. Patient was instructed to intubate every 24 hours to decrease intestinal distention and to enable her to eat better. Patient was sleeping and intubating her Joy pouch but refused to keep to schedule for intubating. She refused to intubate more often to decrease the amlodipine, pain and cramps. She was observed with pills in her hands, but she denied access to her belongings. She was tolerating diet and TPN was eventually discontinued. She completed the course of Levaquin for UTI. Pain medications were transitioned to oral. She was continued on Xanax. PICC line was discontinued. Patient had psychiatric and drug dependency issues. She was noncompliant with proper intubation scheduling of Joy pouch. She was discharged home, to follow-up with doctors in [place]. FINAL DIAGNOSES: Abdominal pain Polysubstance dependence Depression PTSD Iron deficiency anemia History of ulcerative colitis Noncompliance with Joy pouch care. DISPOSITION: Patient was discharged home. DISCHARGE INSTRUCTIONS: Follow-up with doctors in [place]. I have been assigned to complete a discharge summary on this account, I was not involved with the patient's management.--FRANCIA Ballesteros Jacqueline Robles NP Jun 16, 2019 19:24
== END 2019-06-14 13:45 | disposition home or self-care (01) | DRG 392 ==
LOC: EMR 19:05 → 3E 19:50 → EDBEDREQ 20:33 → 3E 21:30
PROC: B518ZZA Fluoroscopy of Superior Vena Cava, Guidance (ICD-10-PCS; principal; 2019-05-30)
PROC: 02HV33Z Insertion of Infusion Device into Superior Vena Cava, Percutaneous Approach (ICD-10-PCS; principal; 2019-05-30)
PROC: 0DB78ZX Excision of Stomach, Pylorus, Via Natural or Artificial Opening Endoscopic, Diagnostic (ICD-10-PCS; 2019-05-31 13:28)
DX: R10.9 Unspecified abdominal pain (principal); F11.20 Opioid dependence, uncomplicated; F13.20 Sedative, hypnotic or anxiolytic dependence, uncomplicated; K51.90 Ulcerative colitis, unspecified, without complications; D64.9 Anemia, unspecified; Z93.3 Colostomy status; Z85.038 Personal history of other malignant neoplasm of large intestine; F41.9 Anxiety disorder, unspecified; Z85.41 Personal history of malignant neoplasm of cervix uteri; Z85.43 Personal history of malignant neoplasm of ovary; F32.9 Major depressive disorder, single episode, unspecified; F90.9 Attention-deficit hyperactivity disorder, unspecified type; K29.70 Gastritis, unspecified, without bleeding; D50.9 Iron deficiency anemia, unspecified; Z93.2 Ileostomy status; F43.10 Post-traumatic stress disorder, unspecified; Z91.19 Patient's noncompliance with other medical treatment and regimen
CPT/HCPCS: 36415; 36569; 71045; 74176; 74270; 76937; 80048; 80053; 80307; 81001; 81003; 82150; 82607; 82728; 82746; 82962; 83036; 83540; 83550; 83605; 83690; 83735; 84100; 84484; 85025; 85610; 85651; 85730; 86140; 86850; 86900; 86901; 87081; 87086; 87181; 87324; 93005; 94003; 94150; 96361; 96374; 96376; 99285; J1815; J2405; J8499